=== PATIENT | male | born 1955 | race Caucasian/White ===

== ENCOUNTER → 2016-11-25 | Outpatient (CLI) | payer MEDICARE, MEDICAID | LOC: RAD 11:01 | PROVIDERS: ATTEND Preventive Medicine Undersea and Hyperbaric Medicine | DX: E11.621 Type 2 diabetes mellitus with foot ulcer (principal) ==

== ENCOUNTER 2019-03-31 17:49 | Inpatient (IN) | payer MEDICARE, MEDICAID ==
--- NOTE | 2019-03-31 18:31 | ER Document Report ---
ED Medical Screen (RME) - General Chief Complaint: Wound Infection Stated Complaint: RIGHT FOOT PAIN Time Seen by Provider: 03/31/19 18:17 Primary Care Provider: ADELINE ZAMORANO PA [Primary Care Provider] - Follow up as needed Notes: Patient is a 63-year-old male who presents the emergency department with a chief complaint of right foot pain. He has had his symptoms for the past month. He has been draining fluid. Patient has a history of osteomyelitis, gangrene, diabetes, hypertension, and multiple foot surgeries in the past. Exam: Foul-smelling right foot. Unfortunately the patient's dressing was unable to be removed. It needs to be soaked in water before it is removed. I have greeted and performed a rapid initial assessment of this patient. A comprehensive ED assessment and evaluation of the patient, analysis of test results and completion of medical decision making process will be conducted by an additional ED providers. TRAVEL OUTSIDE OF THE [place] IN LAST 30 DAYS: No - Related Data Allergies/Adverse Reactions: No Known Allergies Allergy (Verified 03/31/19 17:50) Past Medical History - Past Medical History Cardiac Medical History: Reports: Hx Hypercholesterolemia, Hx Hypertension - medicated Denies: Hx Heart Attack Pulmonary Medical History: Denies: Hx Asthma, Hx Tuberculosis Neurological Medical History: Denies: Hx Cerebrovascular Accident, Hx Seizures Endocrine Medical History: Reports: Hx Diabetes Mellitus Type 1, Hx Diabetes Mellitus Type 2 GI Medical History: Reports: Hx Gastroesophageal Reflux Disease. Denies: Hx Hepatitis, Hx Hiatal Hernia, Hx Ulcer Musculoskeltal Medical History: Infectious Medical History: Denies: Hx Hepatitis Past Surgical History: Reports: Hx Cholecystectomy, Hx Orthopedic Surgery - partial amputation on right foot 01/2012, partial amp to left foot. Denies: Hx Open Heart Surgery, Hx Pacemaker - Immunizations Hx Diphtheria, Pertussis, Tetanus Vaccination: Yes Physical Exam - Vital signs Vitals: Temp Pulse BP Pulse Ox 98.4 F 82 155/71 H 97 03/31/19 17:56 03/31/19 17:56 03/31/19 17:56 03/31/19 17:56 Course - Vital Signs Vital signs: Temp Pulse Resp BP Pulse Ox 98.4 F 82 155/71 H 97 03/31/19 17:56 03/31/19 17:56 03/31/19 17:56 03/31/19 17:56 Doctor's Discharge - Discharge Referrals: ADELINE ZAMORANO PA [Primary Care Provider] - Follow up as needed
[2019-03-31 18:55] LABS: HEMATOCRIT 26.7 % (37.9-51.0); HEMOGLOBIN 8.8 g/dL (13.5-17.0); MEAN CORPUSCULAR HEMOGLOBIN 25.5 pg (27.0-33.4); MEAN CORPUSCULAR HGB CONC 33.1 g/dL (32.0-36.0); MEAN CORPUSCULAR VOLUME 77 fl (80-97); PLATELET COUNT 687 10^3/uL (150-450); RED BLOOD COUNT 3.46 10^6/uL (4.35-5.55); RED CELL DISTRIBUTION WIDTH 15.2 % (11.5-14.0); WHITE BLOOD COUNT 27.2 10^3/uL (4.0-10.5)
--- NOTE | 2019-03-31 19:02 | RADIOLOGY REPORT (SQ) ---
EXAM DESCRIPTION: TIBIA FIBULA RIGHT COMPLETED DATE/TIME: 03/31/2019 6:50 pm REASON FOR STUDY: wound infection COMPARISON: None. NUMBER OF VIEWS: Two views. TECHNIQUE: Two radiographic images acquired of the right tibia and fibula to include the knee and an kle in at least one projection. LIMITATIONS: None. FINDINGS: MINERALIZATION: Normal. BONES: No finding in the tib fib. Partially imaged midfoot reveals sclerotic changes in possible Mariah rcot changes. SOFT TISSUES: No obvious swelling or foreign body. OTHER: No other significant finding. IMPRESSION: NEGATIVE STUDY OF THE RIGHT TIBIA AND FIBULA. NO RADIOGRAPHIC EVIDENCE OF ACUTE INJURY. TECHNICAL DOCUMENTATION: JOB ID: [id number] [employer]- All Rights Reserved Reading location - IP/workstation name: [email or web address]
--- NOTE | 2019-03-31 19:03 | RADIOLOGY REPORT (SQ) ---
EXAM DESCRIPTION: FOOT RIGHT COMPLETE COMPLETED DATE/TIME: 03/31/2019 6:50 pm REASON FOR STUDY: wound infection COMPARISON: 10/23/2013 NUMBER OF VIEWS: Three views. TECHNIQUE: AP, lateral and oblique radiographic images acquired of the right foot. LIMITATIONS: None. FINDINGS: MINERALIZATION: Heterogeneous, mottled mineralization of the remaining forefoot. Hindfoot and distal lower leg mineralization appears normal. BONES: Status post forefoot amputation. The distal margins appear rarefied. A small plantar entheso phyte is present. Degenerative changes are seen of the talonavicular joint. JOINTS: No effusions. SOFT TISSUES: Soft tissue irregularity is at the surgical site. Subcutaneous gas may be present ; al ternatively, this may be on the basis of tissue folds. OTHER: No other significant finding. IMPRESSION: Status post forefoot amputation. Given heterogeneous mineralization and indistinct dist al margins of the tarsal bone remnants in the setting of adjacent soft tissue infection, findings are worrisome for osseous extension/osteomyelitis. TECHNICAL DOCUMENTATION: JOB ID: [id number] [employer]- All Rights Reserved Reading location - IP/workstation name: [email or web address]
[2019-03-31] MEDS ORDERED: ONDANSETRON HCL INJ/PF 4 MG/2 ML SDV IV ONE (19:06)
[2019-03-31] MEDS ORDERED: MORPHINE SULFATE 10 MG/ML INJ IV ONE (19:06)
[2019-03-31] MEDS ORDERED: PIPERACILLIN/TAZOBACTAM 3.375 GM VIAL IV ONE (19:06)
[2019-03-31] MEDS ORDERED: VANCOMYCIN HCL INJ 1000 MG VIAL IV ONE (19:06)
[2019-03-31] MEDS ORDERED: NORMAL SALINE 1000 ML 1,000 ML IV ONE (19:07)
--- NOTE | 2019-03-31 19:07 | ER Document Report ---
ED General - General Chief Complaint: Wound Infection Stated Complaint: RIGHT FOOT PAIN Time Seen by Provider: 03/31/19 18:17 Primary Care Provider: ADELINE ZAMORANO PA [NO LOCAL MD] - Follow up as needed Notes: Patient is a 63-year-old male with diabetes mellitus that presents to the emergency department for chief complaint of right foot pain from chronic wound. Patient states that he had a transmetatarsal amputation several years ago, at this hospital, he was doing wound care for some time, but has not followed up in about 2 years. He has been having worsening pain over the past few months, but specifically last 10 days his pain has become severe to the point he came to the hospital today. He currently rates his pain as a 10 out of 10 describes as a sharp stabbing pain, at the end of his stump of his right foot. He states that the pain is constant does not go away with any attempt to make it better with [id number] Tylenol or Motrin. He does change the dressings once a day himself, he has had a lot of drainage out of it, and he states that earlier today believes a piece of bone fell out of his deep wound. Past Medical History: Diabetes mellitus, hypertension Past Surgical History: Transmetatarsal amputation of the right foot Social History: Admits to smoking cigarettes, denies current alcohol or illicit drug use. Family History: Reviewed and noncontributory for presenting illness Allergies: Reviewed, see documented allergy list. REVIEW OF SYSTEMS: Other than noted above, the 12 point review of systems was reviewed with the patient and were negative, all pertinent findings are included in the HPI. PHYSICAL EXAMINATION: Vital signs reviewed, nursing noted reviewed. GENERAL: Patient appears uncomfortable, older than stated age. HEAD: Atraumatic, normocephalic. EYES: Eyes appear normal, extraocular movements intact, sclera anicteric, conjunctiva are normal. ENT: nares patent, oropharynx clear without exudates. Moist mucous membranes. NECK: Normal range of motion, supple without lymphadenopathy LUNGS: Breath sounds clear to auscultation bilaterally and equal. No wheezes rales or rhonchi. HEART: Regular rate and rhythm without murmurs ABDOMEN: Soft, nontender, normoactive bowel sounds. No rebound, guarding, or rigidity. No masses appreciated. EXTREMITIES: The right foot has prior transmetatarsal amputation, with complex wound over the distal stump, with a deep wound, where the second and third metatarsals were present, probes deep at least 2 cm, with noted granulation tissue and some drainage, with foul odor. There is no active bleeding at this time. Sensation decreased distally over the stump as well, sensation intact distally in the rest the extremities, and otherwise extremities exam is unremarkable. NEUROLOGICAL: Sensation decreased of the distal portion of the patient's right foot, otherwise no neurological deficits noted on exam, intact strength distally in other extremities. Sensation intact distally otherwise as well. Cranial nerves tested and intact. PSYCH: Appears anxious, and uncomfortable on exam. SKIN: Warm, Dry, normal turgor, wound as noted above of the right foot. TRAVEL OUTSIDE OF THE [place] IN LAST 30 DAYS: No - Related Data Allergies/Adverse Reactions: No Known Allergies Allergy (Verified 03/31/19 17:50) Past Medical History - Social History Smoking Status: Unknown if Ever Smoked Family History: Other Patient has suicidal ideation: No Patient has homicidal ideation: No - Past Medical History Cardiac Medical History: Reports: Hx Hypercholesterolemia, Hx Hypertension - medicated Denies: Hx Heart Attack Pulmonary Medical History: Denies: Hx Asthma, Hx Tuberculosis Neurological Medical History: Denies: Hx Cerebrovascular Accident, Hx Seizures Endocrine Medical History: Reports: Hx Diabetes Mellitus Type 1, Hx Diabetes Mellitus Type 2 Renal/ Medical History: Denies: Hx Peritoneal Dialysis GI Medical History: Reports: Hx Gastroesophageal Reflux Disease. Denies: Hx Hepatitis, Hx Hiatal Hernia, Hx Ulcer Musculoskeletal Medical History: Infectious Medical History: Denies: Hx Hepatitis Past Surgical History: Reports: Hx Cholecystectomy, Hx Orthopedic Surgery - partial amputation on right foot 01/2012, partial amp to left foot. Denies: Hx Open Heart Surgery, Hx Pacemaker - Immunizations Hx Diphtheria, Pertussis, Tetanus Vaccination: Yes Hx Pneumococcal Vaccination: 04/05/11 Physical Exam - Vital signs Vitals: Temp Pulse BP Pulse Ox 98.4 F 82 155/71 H 97 03/31/19 17:56 03/31/19 17:56 03/31/19 17:56 03/31/19 17:56 Course - Re-evaluation Re-evalutation: Patient seen and examined vital signs reviewed. Laboratory data and imaging were ordered as appropriate for the patient's presenting symptoms and complaint, with consideration of any critical or life threatening conditions that may be associated with their obtained history and exam as noted above. Patient was treated with IV antibiotics with vancomycin and Zosyn, and given IV fluids, and pain medication. Results were reviewed when available and demonstrated market leukocytosis, thrombocytosis, and x-rays concerning for osteomyelitis of the right foot near the site of the transmetatarsal amputation, and clinically it is consistent with that, is also noted to have a markedly elevated CRP, and ESR. The patient was re-evaluated and was stable Evaluation was most consistent with osteomyelitis of the right foot, with complex wound, I do feel the patient will likely need a below the knee amputation, call was placed to surgery, awaiting callback to discuss disposition, I did discuss the case with the hospitalist as well, they will defer to surgery at this point. Results were discussed with the patient at this point after careful consideration I feel that that patient should be admitted to the hospital. This was discussed with the patient that it is in the best interest for their care to be admitted for further evaluation and management. Patient agreed with this plan of care. A call was placed to the admitting physician, Dr. Bhatti who graciously accepted the patient onto their service, I did call initially to Dr. Mauro, with general surgery, as the patient is likely surgical candidate, and he wished to have the patient admitted to the medicine service due to his diabetes, this is when I did talk to Dr. Bhatti, who did agree to accept the patient onto his service at this point. *Note is created using voice recognition software and may contain spelling, syntax or grammatical errors. Laboratory 03/31/19 03/31/19 03/31/19 18:37 18:37 18:37 WBC 27.2 H RBC 3.46 L Hgb 8.8 L Hct 26.7 L MCV 77 L MCH 25.5 L MCHC 33.1 RDW 15.2 H Plt Count 687 H Total Counted 100 Seg Neutrophils % Not Reportable Seg Neuts % (Manual) 84 H Lymphocytes % Not Reportable Lymphocytes % (Manual) 12 L Monocytes % Not Reportable Monocytes % (Manual) 4 Eosinophils % Not Reportable Eosinophils % (Manual) 0 Basophils % Not Reportable Basophils % (Manual) 0 Absolute Neutrophils Not Reportable Abs Neuts (Manual) 22.8 H Absolute Lymphocytes Not Reportable Abs Lymphs (Manual) 3.3 Absolute Monocytes Not Reportable Abs Monocytes (Manual) 1.1 Absolute Eosinophils Not Reportable Absolute Eos (Manual) 0.0 Absolute Basophils Not Reportable Abs Basophils (Manual) 0.0 Clumped Platelets PRESENT Platelet Comment INCREASED Polychromasia SLIGHT Hypochromasia SLIGHT Anisocytosis SLIGHT Microcytosis SLIGHT ESR 94 H Sodium 128.7 L Potassium 5.2 H Chloride 88 L Carbon Dioxide 29 Anion Gap 12 BUN 18 Creatinine 0.83 Est GFR ( Amer) > 60 Est GFR (Non-Af Amer) > 60 Glucose 220 H Lactic Acid Calcium 9.5 Total Bilirubin 0.4 Direct Bilirubin 0.3 Neonat Total Bilirubin Not Reportable Neonat Direct Bilirubin Not Reportable Neonat Indirect Bili Not Reportable AST 53 ALT 53 Alkaline Phosphatase 121 C-Reactive Protein Total Protein 7.1 Albumin 3.2 L 03/31/19 03/31/19 18:37 19:30 WBC RBC Hgb Hct MCV MCH MCHC RDW Plt Count Total Counted Seg Neutrophils % Seg Neuts % (Manual) Lymphocytes % Lymphocytes % (Manual) Monocytes % Monocytes % (Manual) Eosinophils % Eosinophils % (Manual) Basophils % Basophils % (Manual) Absolute Neutrophils Abs Neuts (Manual) Absolute Lymphocytes Abs Lymphs (Manual) Absolute Monocytes Abs Monocytes (Manual) Absolute Eosinophils Absolute Eos (Manual) Absolute Basophils Abs Basophils (Manual) Clumped Platelets Platelet Comment Polychromasia Hypochromasia Anisocytosis Microcytosis ESR Sodium Potassium Chloride Carbon Dioxide Anion Gap BUN Creatinine Est GFR ( Amer) Est GFR (Non-Af Amer) Glucose Lactic Acid 0.9 Calcium Total Bilirubin Direct Bilirubin Neonat Total Bilirubin Neonat Direct Bilirubin Neonat Indirect Bili AST ALT Alkaline Phosphatase C-Reactive Protein 188.7 H Total Protein Albumin Foot X-Ray 03/31/19 18:25 IMPRESSION: Status post forefoot amputation. Given heterogeneous mineralization and indistinct distal margins of the tarsal bone remnants in the setting of adjacent soft tissue infection, findings are worrisome for osseous extension/osteomyelitis. Tibia/Fibula X-Ray 03/31/19 18:25 IMPRESSION: NEGATIVE STUDY OF THE RIGHT TIBIA AND FIBULA. NO RADIOGRAPHIC EVIDENCE OF ACUTE INJURY. - Vital Signs Vital signs: Temp Pulse Resp BP Pulse Ox 98.4 F 82 24 H 137/81 H 95 03/31/19 17:56 03/31/19 17:56 03/31/19 21:01 03/31/19 21:00 03/31/19 21:01 - Laboratory Result Diagrams: 03/31/19 18:37 03/31/19 18:37 Laboratory results interpreted by me: 03/31/19 03/31/19 03/31/19 18:37 18:37 18:37 WBC 27.2 H RBC 3.46 L Hgb 8.8 L Hct 26.7 L MCV 77 L MCH 25.5 L RDW 15.2 H Plt Count 687 H Seg Neuts % (Manual) 84 H Lymphocytes % (Manual) 12 L Abs Neuts (Manual) 22.8 H ESR 94 H Sodium 128.7 L Potassium 5.2 H Chloride 88 L Glucose 220 H C-Reactive Protein Albumin 3.2 L 03/31/19 18:37 WBC RBC Hgb Hct MCV MCH RDW Plt Count Seg Neuts % (Manual) Lymphocytes % (Manual) Abs Neuts (Manual) ESR Sodium Potassium Chloride Glucose C-Reactive Protein 188.7 H Albumin Discharge - Discharge Clinical Impression: Thrombocytosis, Hyponatremia Osteomyelitis Qualifiers: Osteomyelitis type: other acute Osteomyelitis location: foot Laterality: right Qualified Code(s): M86.171 - Other acute osteomyelitis, right ankle and foot Leukocytosis Qualifiers: Leukocytosis type: unspecified Qualified Code(s): D72.829 - Elevated white blood cell count, unspecified Condition: Stable Disposition: ADMITTED INPATIENT Admitting Provider: Magy (Hospitalist) Unit Admitted: Surgical Floor Referrals: ADELINE ZAMORANO PA [NO LOCAL MD] - Follow up as needed
[2019-03-31 19:10] LABS: ABSOLUTE LYMPHOCYTES# (MANUAL) 3.3 10^3/uL (0.5-4.7); ABSOLUTE MONOCYTES # (MANUAL) 1.1 10^3/uL (0.1-1.4); ALANINE AMINOTRANSFERASE 53 U/L (21-72); ALBUMIN 3.2 g/dL (3.5-5.0); ALKALINE PHOSPHATASE 121 U/L (38-126); ANION GAP 12 (5-19); ASPARTATE AMINO TRANSFERASE 53 U/L (17-59); BASOPHILS % (MANUAL) 0 % (0-2); BILIRUBIN,DIRECT 0.3 mg/dL (0.0-0.4); BILIRUBIN,TOTAL 0.4 mg/dL (0.2-1.3); BLOOD UREA NITROGEN 18 mg/dL (7-20); CALCIUM 9.5 mg/dL (8.4-10.2); CARBON DIOXIDE 29 mmol/L (22-30); CHLORIDE 88 mmol/L (98-107); EOSINOPHILS % (MANUAL) 0 % (0-6); GLUCOSE 220 mg/dL (75-110); LYMPHOCYTES % (MANUAL) 12 % (13-45); MONOCYTES % (MANUAL) 4 % (3-13); POTASSIUM 5.2 mmol/L (3.6-5.0); SEGMENTED NEUTROPHILS % (MAN) 84 % (42-78); TOTAL CELLS COUNTED 100; TOTAL PROTEIN 7.1 g/dL (6.3-8.2)
[2019-03-31 19:11] LABS: ANISOCYTOSIS SLIGHT; HYPOCHROMASIA SLIGHT; PLATELET CLUMPS PRESENT; PLATELET COMMENT INCREASED; POLYCHROMASIA SLIGHT
[2019-03-31] MEDS ORDERED: HYDROMORPHONE HCL INJ/PF 2 MG/ML AMPULE IV ONE (21:35)
[2019-03-31] MEDS ORDERED: MAG HYDROX/AL HYDROX/SIMETH SUSP 30 ML UDCUP PO PRN (23:14)
[2019-03-31] MEDS ORDERED: NORMAL SALINE 1000 ML 1,000 ML IV PRN (23:14)
[2019-03-31] MEDS ORDERED: LEVALBUTEROL HCL NEB 0.63 MG/3 ML AMPUL NEB PRN (23:14)
[2019-03-31] MEDS ORDERED: ONDANSETRON HCL INJ/PF 4 MG/2 ML SDV IV PRN (23:14)
[2019-03-31] MEDS ORDERED: MAGNESIUM HYDROXIDE SUSP 30 ML UDCUP PO PRN (23:14)
[2019-03-31] MEDS ORDERED: MORPHINE SULFATE 10 MG/ML INJ IV PRN ×4 (23:20→23:32)
[2019-03-31] MEDS ORDERED: NICOTINE 21 MG/24 HR PATCH.TD24 TD PRN (23:20)
[2019-03-31] MEDS ORDERED: METOPROLOL TARTRATE PF/INJ 5 MG/5 ML SDV IV PRN (23:20)
[2019-03-31] MEDS ORDERED: ACETAMINOPHEN 325 MG TABLET PO PRN (23:20)
[2019-03-31] MEDS ORDERED: DEXTROSE 50%-WATER 25 GM/50 ML DISP.SYRIN IV PRN ×2 (23:21)
[2019-03-31] MEDS ORDERED: GLUCAGON,HUMAN RECOMB 1 MG INJ IM PRN (23:21)
[2019-03-31] MEDS ORDERED: DEXTROSE 40% GEL 15 GM TUBE PO PRN ×2 (23:21)
[2019-03-31 23:50] LABS: FREE T3 2.64 pg/mL (2.77-5.27)
[2019-03-31 23:51] LABS: FREE T4 (FREE THYROXINE) 1.57 ng/dL (0.78-2.19)
[2019-04-01 00:05] LABS: THYROID STIMULATING HORMONE 2.33 uIU/mL (0.47-4.68)
[2019-04-01] MEDS: FAMOTIDINE 20 MG TABLET PO SCH ×3 (00:46→23:03)
--- NOTE | 2019-04-01 00:46 | ADVANCED CARE ---
- Diagnosis (1) Osteomyelitis of foot, right, acute Diagnosis Current: Yes (2) Diabetes mellitus type 2 in nonobese Diagnosis Current: Yes (3) Essential hypertension Diagnosis Current: Yes (4) Tobacco use disorder, severe, dependence Diagnosis Current: Yes Attendance: Patient and myself. Resuscitation Status: Full Code Discussion: After brief discussion patient has determined he wishes to remain full code resuscitation status throughout this hospital course. Additionally he is named his son Chucky Elliott as his designated surrogate medical decision-maker. Care Planning Goals: 1. Patient will be full CODE STATUS for this hospital admission. 2. Chucky Elliott will be the patient's designated surrogate medical decision-maker. Document(s) Completed: The following entries will be made to the patient's permanent medical record, current medical record and current orders via EMR entry: 1. Patient will be full CODE STATUS for this hospital admission. 2. Chucky Elliott will be the patient's designated surrogate medical decision-maker. Time Spent: 5 minutes
--- NOTE | 2019-04-01 00:46 | PDOC H&P ---
History of Present Illness Admission Date/PCP: 03/31/19 21:37 ALHAJI VILLALBA MD Patient complains of: Right foot pain History of Present Illness: CHUCKY ELLIOTT is a 63 year old male who presents the emergency room with a 10-day history of right foot pain. 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 He has not been compliant with receiving care at the wound clinic and recently has been "taking care of his foot by himself at home". He admits that over the last several months he is been having gradually worsening pain but approximately 10 days ago he developed severe pain in his right foot. He describes the pain as a constant, severe, sharp stabbing in the end of the transmetatarsal stump of his right foot. The pain is worsened by weightbearing, does not radiate and has not responded to ibuprofen or acetaminophen. He further relates that a piece of bone fell out of his foot wound earlier today. He admits prior similar problems with his left foot that resulted in an amputation of his left great toe. He has not identified any other aggravating or ameliorating factors for his right foot pain. In the emergency room he was found to have a leukocytosis, radiographic changes consistent with osteomyelitis of the right foot and obvious gangrene of the right foot on visual inspection. Dr. Mauro was notified about the patient and insisted that the hospital service should admit this patient because he has diabetes, hypertension and some mild electrolyte abnormalities. Patient was subsequently admitted to the hospital for further evaluation and treatment. Past Medical History Cardiac Medical History: Reports: Hyperlipidema, Hypertension - medicated Denies: Coronary Artery Disease, Myocardial Infarction Pulmonary Medical History: Denies: Asthma, Chronic Obstructive Pulmonary Disease (COPD), Tuberculosis EENT Medical History: Denies: Cataracts, Ears - Hearing aids Neurological Medical History: Denies: Hemorrhagic CVA, Ischemic CVA, Multiple Sclerosis, Seizures Endocrine Medical History: Reports: Diabetes Mellitus Type 2 Denies: Diabetes Mellitus Type 1, Hyperthyroidism, Hypothyroidism, Obesity Renal/ Medical History: Denies: Chronic Kidney Disease, Nephrolithiasis Malignancy Medical History: Reports: None GI Medical History: Reports: Gastroesophageal Reflux Disease Denies: Cirrhosis, Crohn's Disease, Hepatitis, Hiatal Hernia, Ulcerative Colitis Musculoskeltal Medical History: Reports: Other - Diabetic foot/toe ulcers Denies: Arthritis, Fibromyalgia, Gout Skin Medical History: Denies: Eczema, Psoriasis Psychiatric Medical History: Reports: Substance Abuse, Tobacco Dependency Denies: Alcohol Dependency Traumatic Medical History: Reports: None Hematology: Denies: Anemia, Bleeding Tendencies Infectious Medical History: Reports: None Past Surgical History Past Surgical History: Reports: Cholecystectomy, Orthopedic Surgery - Right transmetatarsal amputation, left great toe amputation Social History Information Source: Patient Lives with: Alone Smoking Status: Current Every Day Smoker Frequency of Alcohol Use: None Hx Recreational Drug Use: Yes Drugs: Marijuana Hx Prescription Drug Abuse: No - Advance Directive Resuscitation Status: Full Code Surrogate healthcare decision maker:: Chucky Elliott Family History Family History: DM, Hypertension Parental Family History Reviewed: Yes Children Family History Reviewed: No Sibling(s) Family History Reviewed.: Yes Medication/Allergy Home Medications: Metoclopramide HCl [Reglan] 5 mg PO Q8HP PRN #14 tablet 04/06/13 Oxycodone HCl/Acetaminophen [Percocet 5-325 mg Tablet] 1 - 2 tab PO ASDIR PRN #25 tablet 04/06/13 Ondansetron [Zofran Odt 4 mg Tablet] 1 - 2 tab PO Q4H #20 tab.rapdis 04/08/13 Omeprazole [Prilosec] 20 mg PO DAILY #30 capsule. 09/12/13 Amlodipine Besylate [Norvasc] 5 mg PO DAILY 01/08/14 Polyethylene Glycol 3350 [Miralax] 119 gm PO PRN PRN 01/08/14 Insulin Aspart Prot/Insuln Asp [Novolog Mix 70-30 Flexpen Syrn] 5 unit SQ ACHS 05/01/14 Lisinopril 40 mg PO DAILY 05/01/14 Sennosides/Docusate 8.6-50 mg [Senna Plus Tablet] 2 tab PO BIDP PRN 05/01/14 Allergies/Adverse Reactions: No Known Allergies Allergy (Verified 03/31/19 17:50) Review of Systems Constitutional: ABSENT: chills, fever(s) Eyes: ABSENT: visual disturbances, other - Eye Pain Ears: ABSENT: hearing changes, other - Ear Pain Nose, Mouth, and Throat: ABSENT: mouth pain, sore throat Cardiovascular: ABSENT: chest pain, palpitations Respiratory: ABSENT: cough, dyspnea Gastrointestinal: ABSENT: abdominal pain, constipation, diarrhea, nausea, vomiting Genitourinary: ABSENT: dysuria, hematuria Musculoskeletal: PRESENT: as per HPI, other - Right foot pain and soreness. ABSENT: back pain, muscle weakness Integumentary: PRESENT: wounds - Chronic postoperative wound right foot (diabeti c ulcer). ABSENT: pruritus, rash Neurological: ABSENT: confusion, convulsions, focal weakness, memory loss, syncope Psychiatric: ABSENT: anxiety, depression Endocrine: ABSENT: cold intolerance, heat intolerance Hematologic/Lymphatic: ABSENT: easy bleeding, easy bruising Physical Exam Vital Signs: Temp Pulse Resp BP Pulse Ox 98.6 F 82 22 H 125/71 97 03/31/19 22:31 03/31/19 17:56 03/31/19 22:01 03/31/19 22:00 03/31/19 22:01 Intake & Output 03/29/19 03/30/19 03/31/19 23:59 23:59 23:59 Intake Total 1000 Balance 1000 Weight 73.3 kg General appearance: PRESENT: no acute distress, cooperative Head exam: PRESENT: atraumatic, normocephalic Eye exam: PRESENT: conjunctiva pink. ABSENT: conjunctival injection, scleral icterus Ear exam: PRESENT: normal external ear exam. ABSENT: bleeding, drainage Mouth exam: PRESENT: dry mucosa, neck supple Neck exam: ABSENT: JVD, thyromegaly, tracheal deviation Respiratory exam: PRESENT: clear to auscultation melonie, symmetrical, unlabored Cardiovascular exam: PRESENT: RRR. ABSENT: clicks, gallop, rubs Pulses: PRESENT: normal radial pulses. ABSENT: normal dorsalis pedis pul - Dorsalis pedis pulses diminished bilaterally Vascular exam: PRESENT: normal capillary refill. ABSENT: pallor GI/Abdominal exam: PRESENT: normal bowel sounds, soft Rectal exam: PRESENT: deferred Extremities exam: PRESENT: tenderness - Right foot. ABSENT: joint swelling Musculoskeletal exam: PRESENT: tenderness - Right foot, other - Status post: Amputation left great toe, amputation transmetatarsal on right. ABSENT: deformity, dislocation Neurological exam: PRESENT: alert, oriented to person, oriented to place, oriented to time, oriented to situation, CN II-XII grossly intact. ABSENT: motor sensory deficit Psychiatric exam: PRESENT: appropriate affect, normal mood Skin exam: PRESENT: dry, warm, other - Right foot with obvious erythema edema and gangrenous changes present over the entirety of the distal forefoot status post transmetatarsal amputation.. ABSENT: jaundice, rash, urticaria Results Laboratory Results: 03/31/19 18:37 03/31/19 18:37 03/31/19 03/31/19 03/31/19 18:37 18:37 18:37 WBC 27.2 H RBC 3.46 L Hgb 8.8 L Hct 26.7 L MCV 77 L MCH 25.5 L MCHC 33.1 RDW 15.2 H Plt Count 687 H Seg Neutrophils % Not Reportable Lymphocytes % Not Reportable Monocytes % Not Reportable Eosinophils % Not Reportable Basophils % Not Reportable Absolute Neutrophils Not Reportable Absolute Lymphocytes Not Reportable Absolute Monocytes Not Reportable Absolute Eosinophils Not Reportable Absolute Basophils Not Reportable Sodium 128.7 L Potassium 5.2 H Chloride 88 L Carbon Dioxide 29 Anion Gap 12 BUN 18 Creatinine 0.83 Est GFR ( Amer) > 60 Est GFR (Non-Af Amer) > 60 Glucose 220 H Lactic Acid Calcium 9.5 Total Bilirubin 0.4 AST 53 ALT 53 Alkaline Phosphatase 121 C-Reactive Protein 188.7 H Total Protein 7.1 Albumin 3.2 L 03/31/19 19:30 WBC RBC Hgb Hct MCV MCH MCHC RDW Plt Count Seg Neutrophils % Lymphocytes % Monocytes % Eosinophils % Basophils % Absolute Neutrophils Absolute Lymphocytes Absolute Monocytes Absolute Eosinophils Absolute Basophils Sodium Potassium Chloride Carbon Dioxide Anion Gap BUN Creatinine Est GFR ( Amer) Est GFR (Non-Af Amer) Glucose Lactic Acid 0.9 Calcium Total Bilirubin AST ALT Alkaline Phosphatase C-Reactive Protein Total Protein Albumin Impressions: Foot X-Ray 03/31/19 18:25 IMPRESSION: Status post forefoot amputation. Given heterogeneous mineralization and indistinct distal margins of the tarsal bone remnants in the setting of adjacent soft tissue infection, findings are worrisome for osseous extension/osteomyelitis. Tibia/Fibula X-Ray 03/31/19 18:25 IMPRESSION: NEGATIVE STUDY OF THE RIGHT TIBIA AND FIBULA. NO RADIOGRAPHIC EVIDENCE OF ACUTE INJURY. Assessment and Plan - Diagnosis (1) Osteomyelitis of foot, right, acute Is this a current diagnosis for this admission?: Yes Plan: Patient's osteomyelitis will be treated with IV antibiotics utilizing Zosyn and vancomycin. A surgical consultation will be obtained with Dr. Mauro. Daily CBCs, metabolic profiles and magnesium levels will be obtained. Patient's pain will be treated with morphine sulfate 2 to 4 mg IV every 2 hours on a as needed basis via sliding scale. (2) Diabetes mellitus type 2 in nonobese Is this a current diagnosis for this admission?: Yes Plan: Patient will be continued on his usual diabetic regiment and diabetic diet. Hemoglobin A1c will be obtained to evaluate his current therapy. A sliding scale insulin regiment will be in place for use with before meals and at bedtime Accu-Cheks. A hypoglycemic protocol will also be in place. (3) Essential hypertension Is this a current diagnosis for this admission?: Yes Plan: Patient will be continued on his usual medications for hypertension and his bloo d pressure will be observed closely throughout his hospital stay. (4) Tobacco use disorder, severe, dependence Is this a current diagnosis for this admission?: Yes Plan: Smoking cessation has been advised and discussed briefly at the bedside. A nicotine replacement patch is available for the patient's use as desired. - Time Time Spent with patient: 25-34 minutes Smoking Cessation Education: 3 to 10 minutes Medications reviewed and adjusted accordingly: Yes Anticipated discharge: Home - Inpatient Certification Based on my medical assessment, after consideration of the patient's jr rbidities, presenting symptoms, or acuity I expect that the services needed warrant INPATIENT care.: Yes I certify that my determination is in accordance with my understanding of Medicare's requirements for reasonable and necessary INPATIENT services [42 CFR 412.3e].: Yes Medical Necessity: Significant Comorbidiites Make Outpatient Treatment Too Risky, Need Close Monitoring Due to Risk of Patient Decompensation, Need for Pain Control, Need for IV Antibiotics, Need for Surgery, Risk of Complication if Not Cared For in Hospital
[2019-04-01] MEDS ORDERED: MORPHINE SULFATE 10 MG/ML INJ IV PRN ×3 (00:52→00:53)
[2019-04-01] MEDS ORDERED: PIPERACILLIN/TAZOBACTAM 3.375 GM VIAL IV PRN (01:00)
[2019-04-01] MEDS ORDERED: FAMOTIDINE 20 MG TABLET PO ONE (01:00)
[2019-04-01] MEDS ORDERED: VANCOMYCIN HCL INJ 1000 MG VIAL IV PRN (01:10)
[2019-04-01] MEDS: MORPHINE SULFATE 10 MG/ML INJ IV PRN ×7 (02:38→21:00)
[2019-04-01] MEDS ORDERED: PIPERACILLIN/TAZOBACTAM 3.375 GM VIAL IV ONE (03:50)
[2019-04-01 04:58] LABS: HEMATOCRIT 25.3 % (37.9-51.0); HEMOGLOBIN 8.3 g/dL (13.5-17.0); MEAN CORPUSCULAR HEMOGLOBIN 25.6 pg (27.0-33.4); MEAN CORPUSCULAR HGB CONC 32.9 g/dL (32.0-36.0); MEAN CORPUSCULAR VOLUME 78 fl (80-97); PLATELET COUNT 555 10^3/uL (150-450); RED BLOOD COUNT 3.25 10^6/uL (4.35-5.55); RED CELL DISTRIBUTION WIDTH 14.7 % (11.5-14.0)
[2019-04-01 05:22] LABS: ANION GAP 7 (5-19); BLOOD UREA NITROGEN 15 mg/dL (7-20); CALCIUM 8.6 mg/dL (8.4-10.2); CARBON DIOXIDE 29 mmol/L (22-30); CHLORIDE 95 mmol/L (98-107); CHOLESTEROL 90.96 mg/dL (0-200); GLUCOSE 205 mg/dL (75-110); POTASSIUM 4.8 mmol/L (3.6-5.0); TRIGLYCERIDES 84 mg/dL (<150)
[2019-04-01 05:33] LABS: DIRECT LDL 60 mg/dL (<100)
[2019-04-01] MEDS: PIPERACILLIN SODIUM/TAZOBACTAM 3.375 GM in NORMAL SALINE 100 ML IV SCH ×4 (05:43→21:00)
[2019-04-01] MEDS ORDERED: HEPARIN SOD (PORCINE) 5,000 UNIT/ML 1 ML VIAL SUBCUT SCH (06:00)
[2019-04-01] MEDS ORDERED: VANCOMYCIN HCL 1,250 MG in DEXTROSE 5%-WATER 250 ML IV ONE (08:00)
[2019-04-01] MEDS ORDERED: INSULIN REG, HUMAN 100 UNIT/ML 3 ML VIAL (PYX) SUBCUT SCH (08:00)
--- NOTE | 2019-04-01 08:21 | PDOC PROGRESS REPORT ---
Subjective Progress Note for:: 04/01/19 Subjective:: 63 year old male who presents the emergency room with a 10-day history of right foot pain. 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 He has not been compliant with receiving care at the wound clinic and recently has been "taking care of his foot by himself at home". He admits that over the last several months he is been having gradually worsening pain but approximately 10 days ago he developed severe pain in his right foot. He describes the pain as a constant, severe, sharp stabbing in the end of the transmetatarsal stump of his right foot. The pain is worsened by weightbearing, does not radiate and has not responded to ibuprofen or acetaminophen. He further relates that a piece of bone fell out of his foot wound earlier today. He admits prior similar problems with his left foot that resulted in an amputation of his left great toe. He has not identified any other aggravating or ameliorating factors for his right foot pain. In the emergency room he was found to have a leukocytosis, radiographic changes consistent with osteomyelitis of the right foot and obvious gangrene of the right foot on visual inspection. Dr. Mauro was notified about the patient and insisted that the hospital service should admit this patient because he has diabetes, hypertension and some mild electrolyte abnormalities. Patient was subsequently admitted to the hospital for further evaluation and treatment. [id number]-old male came in with right foot osteomyelitis. It is foul- smelling. Patient has history of partial amputation of the right foot before. He is not following with the wound care center after that. X-rays done in the emergency room found to be consistent with osteomyelitis possible gangrene. Dr. Mauro was notified yesterday and Dr. Aldana admit the patient and to consult surgeon in the morning. I spoke to Dr. Hernandez this morning he was here just a minute ago to examine the patient. Patient is going to be n.p.o. in the meantime. Patient is complaining of severe pains he is on morphine [id number]. Blood cultures are pending. Presently on IV vancomycin and Zosyn. Reason For Visit: OSTEOMYELITIS RIGHT FOOT Physical Exam Vital Signs: Temp Pulse Resp BP Pulse Ox 99.0 F 68 16 137/74 H 92 04/01/19 07:49 04/01/19 07:49 04/01/19 07:49 04/01/19 07:49 04/01/19 07:49 Intake & Output 03/31/19 04/01/19 04/02/19 06:59 06:59 06:59 Intake Total 1000 Balance 1000 Weight 74.888 kg General appearance: PRESENT: cooperative, other - Patient is in severe distress. Head exam: PRESENT: atraumatic Eye exam: PRESENT: PERRLA Ear exam: PRESENT: normal external ear exam Mouth exam: PRESENT: moist, tongue midline Teeth exam: PRESENT: poor dentation Neck exam: ABSENT: carotid bruit, JVD, lymphadenopathy, thyromegaly Respiratory exam: PRESENT: decreased breath sounds Cardiovascular exam: PRESENT: RRR. ABSENT: diastolic murmur, rubs, systolic murmur GI/Abdominal exam: PRESENT: normal bowel sounds, soft. ABSENT: distended, guarding, mass, organolmegaly, rebound, tenderness Rectal exam: PRESENT: deferred Extremities exam: PRESENT: other - Right foot wrapped in bandage gauze extremely foul-smelling odor coming from it. Neurological exam: PRESENT: alert, awake, oriented to person, oriented to place, oriented to time, oriented to situation, CN II-XII grossly intact. ABSENT: judie r sensory deficit Psychiatric exam: PRESENT: appropriate affect, normal mood. ABSENT: homicidal ideation, suicidal ideation Results Laboratory Results: 04/01/19 04:49 04/01/19 04:49 03/31/19 03/31/19 03/31/19 18:37 18:37 18:37 WBC 27.2 H RBC 3.46 L Hgb 8.8 L Hct 26.7 L MCV 77 L MCH 25.5 L MCHC 33.1 RDW 15.2 H Plt Count 687 H Seg Neutrophils % Not Reportable Lymphocytes % Not Reportable Monocytes % Not Reportable Eosinophils % Not Reportable Basophils % Not Reportable Absolute Neutrophils Not Reportable Absolute Lymphocytes Not Reportable Absolute Monocytes Not Reportable Absolute Eosinophils Not Reportable Absolute Basophils Not Reportable Sodium 128.7 L Potassium 5.2 H Chloride 88 L Carbon Dioxide 29 Anion Gap 12 BUN 18 Creatinine 0.83 Est GFR ( Amer) > 60 Est GFR (Non-Af Amer) > 60 Glucose 220 H Lactic Acid Calcium 9.5 Magnesium Total Bilirubin 0.4 AST 53 ALT 53 Alkaline Phosphatase 121 C-Reactive Protein 188.7 H Total Protein 7.1 Albumin 3.2 L Triglycerides Cholesterol LDL Cholesterol Direct VLDL Cholesterol HDL Cholesterol TSH Free T4 Free T3 pg/mL 03/31/19 03/31/19 04/01/19 18:37 19:30 01:01 WBC RBC Hgb Hct MCV MCH MCHC RDW Plt Count Seg Neutrophils % Lymphocytes % Monocytes % Eosinophils % Basophils % Absolute Neutrophils Absolute Lymphocytes Absolute Monocytes Absolute Eosinophils Absolute Basophils Sodium Potassium Chloride Carbon Dioxide Anion Gap BUN Creatinine Est GFR ( Amer) Est GFR (Non-Af Amer) Glucose Lactic Acid 0.9 0.8 Calcium Magnesium Total Bilirubin AST ALT Alkaline Phosphatase C-Reactive Protein Total Protein Albumin Triglycerides Cholesterol LDL Cholesterol Direct VLDL Cholesterol HDL Cholesterol TSH 2.33 Free T4 1.57 Free T3 pg/mL 2.64 L 04/01/19 04/01/19 04/01/19 04:49 04:49 04:49 WBC 20.0 H RBC 3.25 L Hgb 8.3 L Hct 25.3 L MCV 78 L MCH 25.6 L MCHC 32.9 RDW 14.7 H Plt Count 555 H Seg Neutrophils % Lymphocytes % Monocytes % Eosinophils % Basophils % Absolute Neutrophils Absolute Lymphocytes Absolute Monocytes Absolute Eosinophils Absolute Basophils Sodium 131.4 L Potassium 4.8 Chloride 95 L Carbon Dioxide 29 Anion Gap 7 BUN 15 Creatinine 0.85 Est GFR ( Amer) > 60 Est GFR (Non-Af Amer) > 60 Glucose 205 H Lactic Acid 0.8 Calcium 8.6 Magnesium 1.8 Total Bilirubin AST ALT Alkaline Phosphatase C-Reactive Protein Total Protein Albumin Triglycerides 84 Cholesterol 90.96 LDL Cholesterol Direct 60 VLDL Cholesterol 17.0 HDL Cholesterol 19 L TSH Free T4 Free T3 pg/mL Impressions: Foot X-Ray 03/31/19 18:25 IMPRESSION: Status post forefoot amputation. Given heterogeneous mine ralization and indistinct distal margins of the tarsal bone remnants in the setting of adjacent soft tissue infection, findings are worrisome for osseous extension/osteomyelitis. Tibia/Fibula X-Ray 03/31/19 18:25 IMPRESSION: NEGATIVE STUDY OF THE RIGHT TIBIA AND FIBULA. NO RADIOGRAPHIC EVIDENCE OF ACUTE INJURY. Assessment and Plan - Diagnosis (1) Osteomyelitis of foot, right, acute Is this a current diagnosis for this admission?: Yes Plan: Patient's osteomyelitis will be treated with IV antibiotics utilizing Zosyn and vancomycin. A surgical consultation will be obtained with Dr. Mauro. Daily CBCs, metabolic profiles and magnesium levels will be obtained. Patient's pain will be treated with morphine sulfate 2 to 4 mg IV every 2 hours on a as needed basis via sliding scale. 04/01/2019-patient admitted with possible osteomyelitis x-ray suggestive of highly likely possibility of osteo-he was started on vancomycin and Zosyn MRI of the right foot was requested. He is receiving IV morphine [id number]. WBC count came down from 27,000-20,000 today hemoglobin is 8.8 and platelet count is 555 looks like reactive thrombocytosis. dr booth is here to examine the patient. Probably patient go for surgery tomorrow. (2) Essential hypertension Is this a current diagnosis for this admission?: Yes Plan: Patient will be continued on his usual medications for hypertension and his blood pressure will be observed closely throughout his hospital stay. 04/01/2019-patient blood pressure today is 124/67 stable. Plan is to continue the IV fluids at this point. (3) Hyponatremia Is this a current diagnosis for this admission?: Yes Plan: 04/01/2019-patient serum sodium is 131.4 hyponatremia most likely secondary to poor oral intake. (4) Diabetes mellitus type 2 in nonobese Is this a current diagnosis for this admission?: Yes Plan: Patient will be continued on his usual diabetic regiment and diabetic diet. Hemoglobin A1c will be obtained to evaluate his current therapy. A sliding scale insulin regiment will be in place for use with before meals and at bedtime Accu-Cheks. A hypoglycemic protocol will also be in place. 04/01/2019-latest blood sugar is 205 and hemoglobin A1c is 7.8 he is going to be n.p.o. to check blood sugars every 6 hours. (5) Tobacco use disorder, severe, dependence Is this a current diagnosis for this admission?: Yes Plan: Smoking cessation has been advised and discussed briefly at the bedside. A nicotine replacement patch is available for the patient's use as desired. 03/31/2019-patient history of chronic smoking current day smoker. Smoking counseling was provided for more than 10 minutes placed on nicotine patch. (6) Thrombocytosis Is this a current diagnosis for this admission?: Yes Plan: 04/01/2019-placed since platelet count is 555 indicating chronic inflammation involving the right foot with osteomyelitis and gangrene. (7) Leukocytosis Qualifiers: Leukocytosis type: unspecified Qualified Code(s): D72.829 - Elevated white blood cell count, unspecified Is this a current diagnosis for this admission?: Yes Plan: 04/01/2019-patient came in with WBC count of 27,000 improved to 20,000 today most likely secondary to osteomyelitis. (8) Osteomyelitis Qualifiers: Osteomyelitis type: other acute Osteomyelitis location: foot Laterality: right Qualified Code(s): M86.171 - Other acute osteomyelitis, right ankle and foot Is this a current diagnosis for this admission?: Yes - Time Time Spent with patient: 25-34 minutes Smoking Cessation Education: over 10 minutes Medications reviewed and adjusted accordingly: Yes Anticipated discharge: Home, SNF
[2019-04-01] MEDS ORDERED: VANCOMYCIN HCL INJ 1000 MG VIAL IV SCH (10:00)
[2019-04-01] MEDS: INSULIN REG, HUMAN 100 UNIT/ML 3 ML VIAL (PYX) SUBCUT SCH ×2 (11:38→19:50)
[2019-04-01] MEDS: DOCUSATE SODIUM 100 MG CAPSULE PO SCH ×2 (11:43→19:50)
[2019-04-01] MEDS: NICOTINE 14 MG/24 HR PATCH.TD24 TD SCH (12:26)
[2019-04-01] MEDS ORDERED: PROPOFOL INJ 200 MG/20 ML VIAL IV ONE (16:34)
[2019-04-01] MEDS ORDERED: FENTANYL CITRATE INJ/PF 250 MCG/5 ML AMPULE ONE (16:34)
[2019-04-01] MEDS ORDERED: MIDAZOLAM 2 MG/2 ML INJ ONE (16:34)
[2019-04-01] MEDS ORDERED: DIPHENHYDRAMINE HCL 50 MG/ML VIAL IV PRN (17:47)
[2019-04-01] MEDS ORDERED: PROMETHAZINE HCL INJ 25 MG/1 ML VIAL IV PRN ×2 (17:47)
[2019-04-01] MEDS ORDERED: ONDANSETRON HCL INJ/PF 4 MG/2 ML SDV IV PRN (17:47)
[2019-04-01] MEDS ORDERED: MEPERIDINE HCL/PF INJ 25 MG/1 ML DISP.SYRIN IV PRN (17:47)
[2019-04-01] MEDS ORDERED: FENTANYL CITRATE INJ/PF 100 MCG/2 ML AMPUL IV PRN ×3 (17:47)
[2019-04-01] MEDS ORDERED: HYDROMORPHONE HCL INJ/PF 2 MG/ML AMPULE ONE (19:39)
--- NOTE | 2019-04-01 21:55 | EKG REPORT ---
SEVERITY:- NORMAL ECG - SINUS RHYTHM : Confirmed by: Kwadwo Spencer 01-Apr-2019 21:54:22
[2019-04-01] MEDS ORDERED: VANCOMYCIN HCL 1,250 MG in DEXTROSE 5%-WATER 250 ML IV SCH (22:00)
[2019-04-01] MEDS ORDERED: HYDROMORPHONE HCL INJ/PF 2 MG/ML AMPULE IV ONE (22:30)
--- NOTE | 2019-04-01 22:40 | Operative Report ---
Operative Report DATE OF SURGERY: 04/01/19 PREOPERATIVE DIAGNOSIS: Infected right transmetatarsal amputation stump POSTOPERATIVE DIAGNOSIS: Same OPERATION: Right below-knee amputation SURGEON: YURI SCHAEFFER ANESTHESIA: Spinal TISSUE REMOVED OR ALTERED: Right distal lower leg and foot COMPLICATIONS: None ESTIMATED BLOOD LOSS: 300 cc PROCEDURE: After adequate spinal anesthesia patient was placed in supine position with the right lower leg prepped and draped in the usual sterile fashion. Appropriate timeout was then called. Next a transverse incision 10 cm from the right tibial tubercle going retirement anteriorly and distal incision extended distally to about 15 cm and connected in a transverse posterior fashion. Anterior incision was then deepened through the tibia as well as the anterior tibial muscles. The anterior tibial muscles were divided with the use of electrocautery. The fibula also identified and also periosteum elevated approximately as well as the right tibia. The tibia was then divided with the use of battery-operated oscillating saw. Same was done on the fibula. The peroneal vessels were identified clamped cut and suture-ligated with 2-0 Vicryl sutures. The fibula and tibia were then shaved posteriorly all await all the way down to the end of the incision. The posterior tibial artery was then identified clamped and suture-ligated with 0-0 Vicryl. The sciatic nerve was lifted and subsequently suture-ligated just above the bone transection. The anterior part of the tibia was then divided with the saw and an angle and subsequently filed to smooth palpation. The fibula was further trimmed approximately just above the tibia with the use of a rondure. The ends were palpated to be smooth. The gastric medial gastrocnemius muscle was then folded up and sutured around the tibia with the use of 2-0 Vicryl. The fascia of the gastrocnemius muscle was then reapproximated to the anterior fascia with the same 2-0 Vicryl sutures. This was then throughout the anterior incision. The skin was trimmed and stapled together. The stump was subsequent subsequently dressed with 4 x 4 ABD and Kerlix. A posterior splint using about 7 layers of 5inch plaster of Demi then subsequently wrapped with Kerlix and Covan. Patient tolerated procedure well. Needle instrument sponge counts were all correct. Estimated blood loss about 300 cc. Patient then brought back to recovery room in satisfactory condition.
[2019-04-01] MEDS: HYDROMORPHONE HCL INJ/PF 2 MG/ML AMPULE IV PRN ×2 (22:57→23:54)
[2019-04-01] MEDS: HYDRALAZINE HCL INJ/PF 20 MG/1 ML SDV IV PRN (23:18)
[2019-04-02] MEDS: NORMAL SALINE 1000 ML 1,000 ML IV PRN ×2 (00:23→14:22)
[2019-04-02] MEDS: KETOROLAC TROMETHAMINE INJ/PF 30 MG/1 ML SDV IV SCH ×4 (00:25→17:15)
[2019-04-02] MEDS: INSULIN REG, HUMAN 100 UNIT/ML 3 ML VIAL (PYX) SUBCUT SCH ×4 (00:26→17:25)
[2019-04-02] MEDS ORDERED: VANCOMYCIN HCL 1,250 MG in DEXTROSE 5%-WATER 250 ML IV ONE (00:30)
[2019-04-02] MEDS: HYDROMORPHONE HCL INJ/PF 2 MG/ML AMPULE IV PRN ×5 (03:10→21:22)
[2019-04-02] MEDS: PIPERACILLIN SODIUM/TAZOBACTAM 3.375 GM in NORMAL SALINE 100 ML IV SCH ×4 (03:34→21:13)
[2019-04-02 05:26] LABS: HEMATOCRIT 27.3 % (37.9-51.0); HEMOGLOBIN 8.9 g/dL (13.5-17.0); MEAN CORPUSCULAR HEMOGLOBIN 25.7 pg (27.0-33.4); MEAN CORPUSCULAR HGB CONC 32.6 g/dL (32.0-36.0); MEAN CORPUSCULAR VOLUME 79 fl (80-97); PLATELET COUNT 543 10^3/uL (150-450); RED BLOOD COUNT 3.47 10^6/uL (4.35-5.55); RED CELL DISTRIBUTION WIDTH 15.3 % (11.5-14.0)
[2019-04-02 05:46] LABS: ALANINE AMINOTRANSFERASE 35 U/L (21-72); ALBUMIN 2.6 g/dL (3.5-5.0); ALKALINE PHOSPHATASE 88 U/L (38-126); ANION GAP 8 (5-19); ASPARTATE AMINO TRANSFERASE 30 U/L (17-59); BILIRUBIN,DIRECT 0.2 mg/dL (0.0-0.4); BILIRUBIN,TOTAL 0.4 mg/dL (0.2-1.3); BLOOD UREA NITROGEN 15 mg/dL (7-20); CALCIUM 8.4 mg/dL (8.4-10.2); CARBON DIOXIDE 27 mmol/L (22-30); CHLORIDE 99 mmol/L (98-107); GLUCOSE 167 mg/dL (75-110); POTASSIUM 4.8 mmol/L (3.6-5.0); TOTAL PROTEIN 6.2 g/dL (6.3-8.2)
[2019-04-02] MEDS ORDERED: PROMETHAZINE HCL INJ 25 MG/1 ML VIAL IV PRN (07:53)
[2019-04-02] MEDS ORDERED: PROMETHAZINE HCL INJ 25 MG/1 ML VIAL ONE (08:05)
--- NOTE | 2019-04-02 09:32 | PDOC PROGRESS REPORT ---
Subjective Progress Note for:: 04/02/19 Subjective:: 63 year old male who presents the emergency room with a 10-day history of right foot pain. 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 He has not been compliant with receiving care at the wound clinic and recently has been "taking care of his foot by himself at home". He admits that over the last several months he is been having gradually worsening pain but approximately 10 days ago he developed severe pain in his right foot. He describes the pain as a constant, severe, sharp stabbing in the end of the transmetatarsal stump of his right foot. The pain is worsened by weightbearing, does not radiate and has not responded to ibuprofen or acetaminophen. He further relates that a piece of bone fell out of his foot wound earlier today. He admits prior similar problems with his left foot that resulted in an amputation of his left great toe. He has not identified any other aggravating or ameliorating factors for his right foot pain. In the emergency room he was found to have a leukocytosis, radiographic changes consistent with osteomyelitis of the right foot and obvious gangrene of the right foot on visual inspection. Dr. Mauro was notified about the patient and insisted that the hospital service should admit this patient because he has diabetes, hypertension and some mild electrolyte abnormalities. Patient was subsequently admitted to the hospital for further evaluation and treatment. 04/01/[id number]-rnmh-old male came in with right foot osteomyelitis. It is foul- smelling. Patient has history of partial amputation of the right foot before. He is not following with the wound care center after that. X-rays done in the emergency room found to be consistent with osteomyelitis possible gangrene. Dr. Mauro was notified yesterday and Dr. Aldana admit the patient and to consult surgeon in the morning. I spoke to Dr. Hernandez this morning he was here just a minute ago to examine the patient. Patient is going to be n.p.o. in the meantime. Patient is complaining of severe pains he is on morphine [id number]. Blood cultures are pending. Presently on IV vancomycin and Zosyn. 04/02/[id number]-ppld-old male came in with infected right first metatarsal amputation stump. s/p right BKA. Patient complains of nausea and vomiting this morning plan is to do the KUB and started on Phenergan 4 mg IV every 4 PRN for nausea vomiting. At the time of my examination patient is comfortably in the bed eating breakfast. Reason For Visit: OSTEOMYELITIS RIGHT FOOT Physical Exam Vital Signs: Temp Pulse Resp BP Pulse Ox 98 F 79 19 148/79 H 99 04/02/19 07:00 04/02/19 07:00 04/02/19 07:00 04/02/19 07:00 04/02/19 07:00 Intake & Output 04/01/19 04/02/19 04/03/19 06:59 06:59 06:59 Intake Total 1000 2950 Output Total 1490 Balance 1000 1460 Weight 74.888 kg 76.702 kg General appearance: PRESENT: no acute distress Head exam: PRESENT: atraumatic Eye exam: PRESENT: PERRLA Ear exam: PRESENT: normal external ear exam Mouth exam: PRESENT: dry mucosa, neck supple Teeth exam: PRESENT: poor dentation Neck exam: ABSENT: carotid bruit, JVD, lymphadenopathy, thyromegaly Respiratory exam: PRESENT: clear to auscultation melonie. ABSENT: rales, rhonchi, wheezes Cardiovascular exam: PRESENT: RRR. ABSENT: diastolic murmur, rubs, systolic murmur GI/Abdominal exam: PRESENT: normal bowel sounds, soft, other - abdomen was soft slightly distended bowel sounds are present.. ABSENT: distended, guarding, mass, organolmegaly, rebound, tenderness Rectal exam: PRESENT: deferred Extremities exam: PRESENT: other - Right BKA wrapped in Hugo wrap. Neurological exam: PRESENT: alert, awake, oriented to person, oriented to place, oriented to time, oriented to situation, CN II-XII grossly intact. ABSENT: motor sensory deficit Psychiatric exam: PRESENT: appropriate affect, normal mood. ABSENT: homicidal ideation, suicidal ideation Results Laboratory Results: 04/02/19 05:10 04/02/19 05:10 04/01/19 04/01/19 04/02/19 10:50 16:38 05:10 WBC 18.0 H RBC 3.47 L Hgb 8.9 L Hct 27.3 L MCV 79 L MCH 25.7 L MCHC 32.6 RDW 15.3 H Plt Count 543 H Sodium Potassium Chloride Carbon Dioxide Anion Gap BUN Creatinine Est GFR ( Amer) Est GFR (Non-Af Amer) Glucose Lactic Acid 0.8 Calcium Magnesium Total Bilirubin AST ALT Alkaline Phosphatase Total Protein Albumin Blood Type A POSITIVE Antibody Screen NEGATIVE 04/02/19 05:10 WBC RBC Hgb Hct MCV MCH MCHC RDW Plt Count Sodium 133.8 L Potassium 4.8 Chloride 99 Carbon Dioxide 27 Anion Gap 8 BUN 15 Creatinine 0.83 Est GFR ( Amer) > 60 Est GFR (Non-Af Amer) > 60 Glucose 167 H Lactic Acid Calcium 8.4 Magnesium 2.1 Total Bilirubin 0.4 AST 30 ALT 35 Alkaline Phosphatase 88 Total Protein 6.2 L Albumin 2.6 L Blood Type Antibody Screen Impressions: Foot X-Ray 03/31/19 18:25 IMPRESSION: Status post forefoot amputation. Given heterogeneous mineralization and indistinct distal margins of the tarsal bone remnants in the setting of adjacent soft tissue infection, findings are worrisome for osseous extension/osteomyelitis. Tibia/Fibula X-Ray 03/31/19 18:25 IMPRESSION: NEGATIVE STUDY OF THE RIGHT TIBIA AND FIBULA. NO RADIOGRAPHIC EVIDENCE OF ACUTE INJURY. Assessment and Plan - Diagnosis (1) Osteomyelitis of foot, right, acute Is this a current diagnosis for this admission?: Yes Plan: Patient's osteomyelitis will be treated with IV antibiotics utilizing Zosyn and vancomycin. A surgical consultation will be obtained with Dr. Mauro. Daily CBCs, metabolic profiles and magnesium levels will be obtained. Patient's pain will be treated with morphine sulfate 2 to 4 mg IV every 2 hours on a as needed basis via sliding scale. 04/01/2019-patient admitted with possible osteomyelitis x-ray suggestive of highly likely possibility of osteo-he was started on vancomycin and Zosyn MRI of the right foot was requested. He is receiving IV morphine [id number]. WBC count came down from 27,000-20,000 today hemoglobin is 8.8 and platelet count is 555 looks like reactive thrombocytosis. dr booth is here to examine the patient. Probably patient go for surgery tomorrow. 04/02/2019-patient admitted with right TMA stump infection status post right BKA. PT OT consult was requested merchandise planner consult was requested. wound Cultures are showing gram-negative rods. WBC count is 18,000. Patient is presently on IV vancomycin and Zosyn. (2) Essential hypertension Is this a current diagnosis for this admission?: Yes Plan: Patient will be continued on his usual medications for hypertension and his blood pressure will be observed closely throughout his hospital stay. 04/01/2019-patient blood pressure today is 124/67 stable. Plan is to continue the IV fluids at this point. 06/03/2019-patient blood pressure today is 149/69. Plan is to restart his home medications and to start on IV hydralazine 10 mg every 4 hours PRN for systolic blood pressure more than 160. (3) Hyponatremia Is this a current diagnosis for this admission?: Yes Plan: 04/01/2019-patient serum sodium is 131.4 hyponatremia most likely secondary to poor oral intake. 04/02/2019-serum sodium is 133.8. Hyponatremia is improving. Most likely secondary to poor oral intake. (4) Diabetes mellitus type 2 in nonobese Is this a current diagnosis for this admission?: Yes Plan: Patient will be continued on his usual diabetic regiment and diabetic diet. Hemoglobin A1c will be obtained to evaluate his current therapy. A sliding scale insulin regiment will be in place for use with before meals and at bedtime Accu-Cheks. A hypoglycemic protocol will also be in place. 04/01/2019-latest blood sugar is 205 and hemoglobin A1c is 7.8 he is going to be n.p.o. to check blood sugars every 6 hours. 04/02/2019-patient's latest blood sugar is 61 and hemoglobin A1c 7.8 he was started on carb diet from today. To change the blood sugars check to before meals and at bedtime with insulin sliding scale coverage. (5) Tobacco use disorder, severe, dependence Is this a current diagnosis for this admission?: Yes (6) Thrombocytosis Is this a current diagnosis for this admission?: Yes (7) Leukocytosis Qualifiers: Leukocytosis type: unspecified Qualified Code(s): D72.829 - Elevated white blood cell count, unspecified Is this a current diagnosis for this admission?: Yes (8) Osteomyelitis Qualifiers: Osteomyelitis type: other acute Osteomyelitis location: foot Laterality: right Qualified Code(s): M86.171 - Other acute osteomyelitis, right ankle and foot Is this a current diagnosis for this admission?: Yes - Time Time Spent with patient: 25-34 minutes Smoking Cessation Education: over 10 minutes Medications reviewed and adjusted accordingly: Yes Anticipated discharge: Home, Home with Homehealth
[2019-04-02] MEDS: FAMOTIDINE 20 MG TABLET PO SCH ×2 (09:37→21:22)
[2019-04-02] MEDS: DOCUSATE SODIUM 100 MG CAPSULE PO SCH ×2 (09:37→17:15)
[2019-04-02] MEDS: VANCOMYCIN HCL 1,250 MG in DEXTROSE 5%-WATER 250 ML IV SCH ×2 (09:39→23:00)
[2019-04-02] MEDS: NICOTINE 14 MG/24 HR PATCH.TD24 TD SCH (09:50)
--- NOTE | 2019-04-02 13:28 | RADIOLOGY REPORT (SQ) ---
EXAM DESCRIPTION: KUB/ABDOMEN (SINGLE VIEW) COMPLETED DATE/TIME: 04/02/2019 1:14 pm REASON FOR STUDY: Nausea/vomiting COMPARISON: None. NUMBER OF VIEWS: One view. TECHNIQUE: Supine radiographic image of the abdomen acquired. LIMITATIONS: None. FINDINGS: BOWEL GAS PATTERN: Large bowel gas predominantly. Nonobstructive gas pattern. CALCIFICATIONS: No suspicious calcifications. SOFT TISSUES: No gross mass or suggestion of organomegaly. HARDWARE: None in the abdomen. BONES: No acute fracture. No worrisome bone lesions. OTHER: No other significant finding. IMPRESSION: Nonspecific abdomen. TECHNICAL DOCUMENTATION: JOB ID: [id number] [employer]- All Rights Reserved Reading location - IP/workstation name: [email or web address]
--- NOTE | 2019-04-02 19:38 | PDOC PROGRESS REPORT ---
Subjective Progress Note for:: 04/02/19 Subjective:: pains right BKA stump Reason For Visit: OSTEOMYELITIS RIGHT FOOT Physical Exam Vital Signs: Temp Pulse Resp BP Pulse Ox 97.1 F 66 18 117/69 100 04/02/19 16:59 04/02/19 17:56 04/02/19 16:59 04/02/19 17:56 04/02/19 16:59 Intake & Output 04/01/19 04/02/19 04/03/19 06:59 06:59 06:59 Intake Total 1000 2950 3470 Output Total 1490 950 Balance 1000 1460 2520 Weight 74.888 kg 76.702 kg Exam: stump dressing intact,dry Results Laboratory Results: 04/02/19 05:10 04/02/19 05:10 04/01/19 04/02/19 04/02/19 16:38 05:10 05:10 WBC 18.0 H RBC 3.47 L Hgb 8.9 L Hct 27.3 L MCV 79 L MCH 25.7 L MCHC 32.6 RDW 15.3 H Plt Count 543 H Sodium 133.8 L Potassium 4.8 Chloride 99 Carbon Dioxide 27 Anion Gap 8 BUN 15 Creatinine 0.83 Est GFR ( Amer) > 60 Est GFR (Non-Af Amer) > 60 Glucose 167 H Calcium 8.4 Magnesium 2.1 Total Bilirubin 0.4 AST 30 ALT 35 Alkaline Phosphatase 88 Total Protein 6.2 L Albumin 2.6 L Blood Type A POSITIVE Antibody Screen NEGATIVE 03/31/19 21:04 Foot - Right Gram Stain - Final Impressions: Foot X-Ray 03/31/19 18:25 IMPRESSION: Status post forefoot amputation. Given heterogeneous mineralization and indistinct distal margins of the tarsal bone remnants in the setting of adjacent soft tissue infection, findings are worrisome for osseous extension/osteomyelitis. Tibia/Fibula X-Ray 03/31/19 18:25 IMPRESSION: NEGATIVE STUDY OF THE RIGHT TIBIA AND FIBULA. NO RADIOGRAPHIC EVIDENCE OF ACUTE INJURY. KUB X-Ray 04/02/19 00:00 IMPRESSION: Nonspecific abdomen. Assessment & Plan - Diagnosis (1) Diabetes mellitus type 2 in nonobese Is this a current diagnosis for this admission?: Yes (2) Essential hypertension Is this a current diagnosis for this admission?: Yes (3) Leukocytosis Qualifiers: Leukocytosis type: unspecified Qualified Code(s): D72.829 - Elevated white blood cell count, unspecified Is this a current diagnosis for this admission?: Yes (4) Osteomyelitis of foot, right, acute Is this a current diagnosis for this admission?: Yes (5) Tobacco use disorder, severe, dependence Is this a current diagnosis for this admission?: Yes - Time Time Spent with patient: 15-24 minutes - Inpatient Certification Medical Necessity: Need for Pain Control, Need for IV Antibiotics - Plan Summary Plan Summary: POD # 1 post rt BKA WBC is trending down Pains better controlled with meds Continue IV antibiotics
[2019-04-02 21:56] LABS: VANCOMYCIN,TROUGH 18.5 ug/mL (5.0-20.0)
[2019-04-03] MEDS: KETOROLAC TROMETHAMINE INJ/PF 30 MG/1 ML SDV IV SCH ×4 (00:57→17:43)
[2019-04-03] MEDS: PIPERACILLIN SODIUM/TAZOBACTAM 3.375 GM in NORMAL SALINE 100 ML IV SCH ×4 (03:54→20:15)
[2019-04-03] MEDS: NORMAL SALINE 1000 ML 1,000 ML IV PRN (04:00)
[2019-04-03 07:33] LABS: ABSOLUTE EOSINOPHILS # (AUTO) 0.4 10^3/uL (0.0-0.6); ABSOLUTE MONOCYTES (AUTO) 0.7 10^3/uL (0.1-1.4); ABSOLUTE NEUT (AUTO) 9.5 10^3/uL (1.7-8.2); BASOPHILS % (AUTO) 0.2 % (0-2); EOSINOPHILS % (AUTO) 3.2 % (0-6); HEMATOCRIT 26.3 % (37.9-51.0); HEMOGLOBIN 8.6 g/dL (13.5-17.0); LYMPHOCYTES % (AUTO) 8.5 % (13-45); MEAN CORPUSCULAR HEMOGLOBIN 25.9 pg (27.0-33.4); MEAN CORPUSCULAR HGB CONC 32.7 g/dL (32.0-36.0); MEAN CORPUSCULAR VOLUME 79 fl (80-97); MONOCYTES % (AUTO) 5.7 % (3-13); PLATELET COUNT 611 10^3/uL (150-450); RED BLOOD COUNT 3.31 10^6/uL (4.35-5.55); RED CELL DISTRIBUTION WIDTH 15.1 % (11.5-14.0); SEGMENTED NEUTROPHILS % (AUTO) 82.4 % (42-78); TOTAL CELLS COUNTED % (AUTO) 100 %; WHITE BLOOD COUNT 11.5 10^3/uL (4.0-10.5)
[2019-04-03 07:51] LABS: ALANINE AMINOTRANSFERASE 32 U/L (21-72); ALBUMIN 2.5 g/dL (3.5-5.0); ALKALINE PHOSPHATASE 91 U/L (38-126); ANION GAP 6 (5-19); ASPARTATE AMINO TRANSFERASE 28 U/L (17-59); BILIRUBIN,DIRECT 0.1 mg/dL (0.0-0.4); BILIRUBIN,TOTAL 0.1 mg/dL (0.2-1.3); BLOOD UREA NITROGEN 16 mg/dL (7-20); CALCIUM 7.8 mg/dL (8.4-10.2); CARBON DIOXIDE 29 mmol/L (22-30); CHLORIDE 102 mmol/L (98-107); GLUCOSE 102 mg/dL (75-110); TOTAL PROTEIN 5.8 g/dL (6.3-8.2)
[2019-04-03] MEDS: HYDROMORPHONE HCL INJ/PF 2 MG/ML AMPULE IV PRN ×3 (08:04→15:47)
[2019-04-03] MEDS: INSULIN REG, HUMAN 100 UNIT/ML 3 ML VIAL (PYX) SUBCUT SCH ×4 (08:07→21:16)
--- NOTE | 2019-04-03 08:39 | PDOC PROGRESS REPORT ---
Subjective Progress Note for:: 04/03/19 Subjective:: 63 year old male who presents the emergency room with a 10-day history of right foot pain. 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 He has not been compliant with receiving care at the wound clinic and recently has been "taking care of his foot by himself at home". He admits that over the last several months he is been having gradually worsening pain but approximately 10 days ago he developed severe pain in his right foot. He describes the pain as a constant, severe, sharp stabbing in the end of the transmetatarsal stump of his right foot. The pain is worsened by weightbearing, does not radiate and has not responded to ibuprofen or acetaminophen. He further relates that a piece of bone fell out of his foot wound earlier today. He admits prior similar problems with his left foot that resulted in an amputation of his left great toe. He has not identified any other aggravating or ameliorating factors for his right foot pain. In the emergency room he was found to have a leukocytosis, radiographic changes consistent with osteomyelitis of the right foot and obvious gangrene of the right foot on visual inspection. Dr. Mauro was notified about the patient and insisted that the hospital service should admit this patient because he has diabetes, hypertension and some mild electrolyte abnormalities. Patient was subsequently admitted to the hospital for further evaluation and treatment. 04/01/[id number]-bhoc-old male came in with right foot osteomyelitis. It is foul- smelling. Patient has history of partial amputation of the right foot before. He is not following with the wound care center after that. X-rays done in the emergency room found to be consistent with osteomyelitis possible gangrene. Dr. Mauro was notified yesterday and Dr. Aldana admit the patient and to consult surgeon in the morning. I spoke to Dr. Hernandez this morning he was here just a minute ago to examine the patient. Patient is going to be n.p.o. in the meantime. Patient is complaining of severe pains he is on morphine [id number]. Blood cultures are pending. Presently on IV vancomycin and Zosyn. 04/02/[id number]-kizs-old male came in with infected right first metatarsal amputation stump. s/p right BKA. Patient complains of nausea and vomiting this morning plan is to do the KUB and started on Phenergan 4 mg IV every 4 PRN for nausea vomiting. At the time of my examination patient is comfortably in the bed eating breakfast. 04/03/[id number]-xdwy-old male admitted with infected right foot metatarsal amputated stump status post a right BKA. Doing well. IV vancomycin and Zosyn wound cultures are positive breast gram-positive cocci in pairs. WBC count came down to 11,500. No acute events in the last 24 hours. Afebrile. Reason For Visit: OSTEOMYELITIS RIGHT FOOT Physical Exam Vital Signs: Temp Pulse Resp BP Pulse Ox 98.5 F 68 16 126/67 H 98 04/02/19 21:33 04/02/19 21:33 04/02/19 21:33 04/02/19 21:33 04/02/19 21:33 Intake & Output 04/02/19 04/03/19 04/04/19 06:59 06:59 06:59 Intake Total 2950 4920 Output Total 1490 1625 Balance 1460 3295 Weight 76.702 kg 76.249 kg General appearance: PRESENT: no acute distress, cooperative Head exam: PRESENT: atraumatic Eye exam: PRESENT: PERRLA Ear exam: PRESENT: normal external ear exam Mouth exam: PRESENT: dry mucosa Teeth exam: PRESENT: poor dentation Neck exam: ABSENT: carotid bruit, JVD, lymphadenopathy, thyromegaly Respiratory exam: PRESENT: clear to auscultation melonie. ABSENT: rales, rhonchi, wheezes Cardiovascular exam: PRESENT: RRR. ABSENT: diastolic murmur, rubs, systolic murmur GI/Abdominal exam: PRESENT: normal bowel sounds, soft. ABSENT: distended, guarding, mass, organolmegaly, rebound, tenderness Rectal exam: PRESENT: deferred Extremities exam: PRESENT: other - Right BKA surgical site is wrapped in Hugo Neurological exam: PRESENT: alert, awake, oriented to person, oriented to place, oriented to time, oriented to situation, CN II-XII grossly intact. ABSENT: motor sensory deficit Psychiatric exam: PRESENT: appropriate affect, normal mood. ABSENT: homicidal ideation, suicidal ideation Results Laboratory Results: 04/03/19 06:34 04/03/19 06:34 0704/03/19 04/03/19 16:38 06:34 06:34 WBC 11.5 H RBC 3.31 L Hgb 8.6 L Hct 26.3 L MCV 79 L MCH 25.9 L MCHC 32.7 RDW 15.1 H Plt Count 611 H Seg Neutrophils % 82.4 H Lymphocytes % 8.5 L Monocytes % 5.7 Eosinophils % 3.2 Basophils % 0.2 Absolute Neutrophils 9.5 H Absolute Lymphocytes 1.0 Absolute Monocytes 0.7 Absolute Eosinophils 0.4 Absolute Basophils 0.0 Sodium 137.1 Potassium 5.0 Chloride 102 Carbon Dioxide 29 Anion Gap 6 BUN 16 Creatinine 0.90 Est GFR ( Amer) > 60 Est GFR (Non-Af Amer) > 60 Glucose 102 Calcium 7.8 L Magnesium 2.0 Total Bilirubin 0.1 L AST 28 ALT 32 Alkaline Phosphatase 91 Total Protein 5.8 L Albumin 2.5 L Blood Type A POSITIVE Antibody Screen NEGATIVE 03/31/19 21:04 Foot - Right Gram Stain - Final Impressions: Foot X-Ray 03/31/19 18:25 IMPRESSION: Status post forefoot amputation. Given heterogeneous voucher examiner alization and indistinct distal margins of the tarsal bone remnants in the setting of adjacent soft tissue infection, findings are worrisome for osseous extension/osteomyelitis. Tibia/Fibula X-Ray 03/31/19 18:25 IMPRESSION: NEGATIVE STUDY OF THE RIGHT TIBIA AND FIBULA. NO RADIOGRAPHIC EVIDENCE OF ACUTE INJURY. KUB X-Ray 04/02/19 00:00 IMPRESSION: Nonspecific abdomen. Assessment and Plan - Diagnosis (1) Osteomyelitis of foot, right, acute Is this a current diagnosis for this admission?: Yes Plan: Patient's osteomyelitis will be treated with IV antibiotics utilizing Zosyn and vancomycin. A surgical consultation will be obtained with Dr. Mauro. Daily CBCs, metabolic profiles and magnesium levels will be obtained. Patient's pain will be treated with morphine sulfate 2 to 4 mg IV every 2 hours on a as needed basis via sliding scale. 04/01/2019-patient admitted with possible osteomyelitis x-ray suggestive of highl y likely possibility of osteo-he was started on vancomycin and Zosyn MRI of the right foot was requested. He is receiving IV morphine [id number]. WBC count came down from 27,000-20,000 today hemoglobin is 8.8 and platelet count is 555 looks like reactive thrombocytosis. dr booth is here to examine the patient. Probably patient go for surgery tomorrow. 04/02/2019-patient admitted with right TMA stump infection status post right BKA. PT OT consult was requested maintenance planner consult was requested. wound Cultures are showing gram-negative rods. WBC count is 18,000. Patient is presently on IV vancomycin and Zosyn. 04/03/2019-patient came in with right TMA stump infection status post right BKA patient is refusing rehab placement. Physical therapy consult was requested occupational therapy consult was requested presently on IV vancomycin and Zosyn WBC count of came down to 11,500. Wound cultures are positive for gram-positive cocci in chains. Plan is to continue the present management now. (2) Essential hypertension Is this a current diagnosis for this admission?: Yes Plan: Patient will be continued on his usual medications for hypertension and his blood pressure will be observed closely throughout his hospital stay. 04/01/2019-patient blood pressure today is 124/67 stable. Plan is to continue the IV fluids at this point. 04/02/2019-patient blood pressure today is 149/69. Plan is to restart his home medications and to start on IV hydralazine 10 mg every 4 hours PRN for systolic blood pressure more than 160. 04/03/2019-patient blood pressure today is 126/67 stable. On IV hydralazine 10 mg every 4 hours as needed for systolic blood pressure more than 150. (3) Hyponatremia Is this a current diagnosis for this admission?: Yes Plan: 04/01/2019-patient serum sodium is 131.4 hyponatremia most likely secondary to poor oral intake. 04/02/2019-serum sodium is 133.8. Hyponatremia is improving. Most likely secondary to poor oral intake. 04/03/2019-patient's serum sodium is 137 hyponatremia due to poor oral intake re solved. (4) Diabetes mellitus type 2 in nonobese Is this a current diagnosis for this admission?: Yes Plan: Patient will be continued on his usual diabetic regiment and diabetic diet. Hemoglobin A1c will be obtained to evaluate his current therapy. A sliding scale insulin regiment will be in place for use with before meals and at bedtime Accu-Cheks. A hypoglycemic protocol will also be in place. 04/01/2019-latest blood sugar is 205 and hemoglobin A1c is 7.8 he is going to be n.p.o. to check blood sugars every 6 hours. 04/02/2019-patient's latest blood sugar is 161 and hemoglobin A1c 7.8 he was started on carb diet from today. To change the blood sugars check to before meals and at bedtime with insulin sliding scale coverage. 04/03/2019-patient latest blood sugar is 123, hemoglobin A1c 7.8. Presently on insulin sliding scale before meals and at bedtime. Dietary consult was requested. (5) Tobacco use disorder, severe, dependence Is this a current diagnosis for this admission?: Yes (6) Thrombocytosis Is this a current diagnosis for this admission?: Yes (7) Leukocytosis Qualifiers: Leukocytosis type: unspecified Qualified Code(s): D72.829 - Elevated white blood cell count, unspecified Is this a current diagnosis for this admission?: Yes Plan: 04/01/2019-patient came in with WBC count of 27,000 improved to 20,000 today most likely secondary to osteomyelitis. 04/02/2019-WBC count is 11,500 on admission 27,000. Improved with ambulation and antibiotics. (8) Osteomyelitis Qualifiers: Osteomyelitis type: other acute Osteomyelitis location: foot Laterality: right Qualified Code(s): M86.171 - Other acute osteomyelitis, right ankle and foot Is this a current diagnosis for this admission?: Yes Plan: 04/03/2019-patient light most likely came in with right foot osteomyelitis status post right BKA. No MRI was done to confirm the diagnosis of osteomyelitis but x-ray is highly suspicious for right foot osteomyelitis. - Time Time Spent with patient: 25-34 minutes Medications reviewed and adjusted accordingly: Yes Anticipated discharge: Home
[2019-04-03] MEDS: FAMOTIDINE 20 MG TABLET PO SCH ×2 (09:54→21:19)
[2019-04-03] MEDS: DOCUSATE SODIUM 100 MG CAPSULE PO SCH ×2 (09:54→17:44)
--- NOTE | 2019-04-03 10:29 | PDOC PROGRESS REPORT ---
Subjective Progress Note for:: 04/03/19 Subjective:: No complaints. Reason For Visit: OSTEOMYELITIS RIGHT FOOT Physical Exam Vital Signs: Temp Pulse Resp BP Pulse Ox 97.2 F 70 14 133/71 H 97 04/03/19 07:53 04/03/19 08:36 04/03/19 07:53 04/03/19 08:36 04/03/19 07:53 Intake & Output 04/02/19 04/03/19 04/04/19 06:59 06:59 06:59 Intake Total 2950 4920 Output Total 1490 1625 Balance 1460 3295 Weight 76.702 kg 76.249 kg General appearance: PRESENT: no acute distress Respiratory exam: PRESENT: clear to auscultation melonie Cardiovascular exam: PRESENT: RRR Extremities exam: PRESENT: other - Stump wound is clean dry and intact with trevin. No swelling and no erythema. Results Laboratory Results: 04/03/19 06:34 04/03/19 06:34 04/01/19 04/03/19 04/03/19 16:38 06:34 06:34 WBC 11.5 H RBC 3.31 L Hgb 8.6 L Hct 26.3 L MCV 79 L MCH 25.9 L MCHC 32.7 RDW 15.1 H Plt Count 611 H Seg Neutrophils % 82.4 H Lymphocytes % 8.5 L Monocytes % 5.7 Eosinophils % 3.2 Basophils % 0.2 Absolute Neutrophils 9.5 H Absolute Lymphocytes 1.0 Absolute Monocytes 0.7 Absolute Eosinophils 0.4 Absolute Basophils 0.0 Sodium 137.1 Potassium 5.0 Chloride 102 Carbon Dioxide 29 Anion Gap 6 BUN 16 Creatinine 0.90 Est GFR ( Amer) > 60 Est GFR (Non-Af Amer) > 60 Glucose 102 Calcium 7.8 L Magnesium 2.0 Total Bilirubin 0.1 L AST 28 ALT 32 Alkaline Phosphatase 91 Total Protein 5.8 L Albumin 2.5 L Blood Type A POSITIVE Antibody Screen NEGATIVE 03/31/19 21:04 Foot - Right Gram Stain - Final Impressions: Foot X-Ray 03/31/19 18:25 IMPRESSION: Status post forefoot amputation. Given heterogeneous minerali zation and indistinct distal margins of the tarsal bone remnants in the setting of adjacent soft tissue infection, findings are worrisome for osseous extension/osteomyelitis. Tibia/Fibula X-Ray 03/31/19 18:25 IMPRESSION: NEGATIVE STUDY OF THE RIGHT TIBIA AND FIBULA. NO RADIOGRAPHIC EVIDENCE OF ACUTE INJURY. KUB X-Ray 04/02/19 00:00 IMPRESSION: Nonspecific abdomen. Assessment & Plan - Diagnosis (1) Osteomyelitis of foot, right, acute Is this a current diagnosis for this admission?: Yes Plan: Status post right below the knee amputation. Surgical site looks very good. Range of motion exercises given to the patient. May discharge patient home when okay with hospitalist. Follow-up with Dr. Barrett as an outpatient in 1-1/2 weeks. Please have patient continue range of motion exercises at home and use a knee immobilizer at home when he is resting. Stump sock if available at our hospital.
[2019-04-03] MEDS: VANCOMYCIN HCL 1,250 MG in DEXTROSE 5%-WATER 250 ML IV SCH ×2 (11:21→21:19)
[2019-04-03] MEDS: NICOTINE 14 MG/24 HR PATCH.TD24 TD SCH (12:00)
[2019-04-03] MEDS: HYDRALAZINE HCL INJ/PF 20 MG/1 ML SDV IV PRN (17:43)
[2019-04-04] MEDS: KETOROLAC TROMETHAMINE INJ/PF 30 MG/1 ML SDV IV SCH ×4 (00:28→18:13)
[2019-04-04] MEDS: PIPERACILLIN SODIUM/TAZOBACTAM 3.375 GM in NORMAL SALINE 100 ML IV SCH ×4 (03:13→20:33)
[2019-04-04] MEDS: INSULIN REG, HUMAN 100 UNIT/ML 3 ML VIAL (PYX) SUBCUT SCH ×3 (08:10→17:40)
--- NOTE | 2019-04-04 08:20 | PDOC PROGRESS REPORT ---
Subjective Progress Note for:: 04/04/19 Subjective:: 63 year old male who presents the emergency room with a 10-day history of right foot pain. 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 He has not been compliant with receiving care at the wound clinic and recently has been "taking care of his foot by himself at home". He admits that over the last several months he is been having gradually worsening pain but approximately 10 days ago he developed severe pain in his right foot. He describes the pain as a constant, severe, sharp stabbing in the end of the transmetatarsal stump of his right foot. The pain is worsened by weightbearing, does not radiate and has not responded to ibuprofen or acetaminophen. He further relates that a piece of bone fell out of his foot wound earlier today. He admits prior similar problems with his left foot that resulted in an amputation of his left great toe. He has not identified any other aggravating or ameliorating factors for his right foot pain. In the emergency room he was found to have a leukocytosis, radiographic changes consistent with osteomyelitis of the right foot and obvious gangrene of the right foot on visual inspection. Dr. Mauro was notified about the patient and insisted that the hospital service should admit this patient because he has diabetes, hypertension and some mild electrolyte abnormalities. Patient was subsequently admitted to the hospital for further evaluation and treatment. 04/01/[id number]-skqc-old male came in with right foot osteomyelitis. It is foul- smelling. Patient has history of partial amputation of the right foot before. He is not following with the wound care center after that. X-rays done in the emergency room found to be consistent with osteomyelitis possible gangrene. Dr. Mauro was notified yesterday and Dr. Aldana admit the patient and to consult surgeon in the morning. I spoke to Dr. Hernandez this morning he was here just a minute ago to examine the patient. Patient is going to be n.p.o. in the meantime. Patient is complaining of severe pains he is on morphine [id number]. Blood cultures are pending. Presently on IV vancomycin and Zosyn. 04/[id number]-wxqr-old male came in with infected right first metatarsal amputation stump. s/p right BKA. Patient complains of nausea and vomiting this morning plan is to do the KUB and started on Phenergan 4 mg IV every 4 PRN for nausea vomiting. At the time of my examination patient is comfortably in the bed eating breakfast. 04/[id number]-uwyx-old male admitted with infected right foot metatarsal amputated stump status post a right BKA. Doing well. IV vancomycin and Zosyn wound cultures are positive breast gram-positive cocci in pairs. WBC count came down to 11,500. No acute events in the last 24 hours. Afebrile. 04/04/[id number]-pgyq-old male admitted with right foot metatarsal amputated stump infection status post right BKA. He is doing well. Presently on IV vancomycin and Zosyn. Cultures came back positive for the proper dementia. Plan is to d iscontinue vancomycin and continue Zosyn. Reason For Visit: OSTEOMYELITIS RIGHT FOOT Physical Exam Vital Signs: Temp Pulse Resp BP Pulse Ox 98.9 F 78 18 151/74 H 95 04/04/19 04:00 04/04/19 04:00 04/04/19 04:00 04/04/19 04:00 04/04/19 04:00 Intake & Output 04/03/19 04/04/19 04/05/19 06:59 06:59 06:59 Intake Total 4920 1100 Output Total 1625 400 Balance 3295 700 Weight 76.249 kg 76.5 kg General appearance: PRESENT: no acute distress Head exam: PRESENT: atraumatic Eye exam: PRESENT: PERRLA Mouth exam: PRESENT: moist, tongue midline Teeth exam: PRESENT: poor dentation Neck exam: ABSENT: carotid bruit, JVD, lymphadenopathy, thyromegaly Respiratory exam: PRESENT: clear to auscultation melonie. ABSENT: rales, rhonchi, wheezes Cardiovascular exam: PRESENT: RRR. ABSENT: diastolic murmur, rubs, systolic murmur GI/Abdominal exam: PRESENT: normal bowel sounds, soft. ABSENT: distended, guarding, mass, organolmegaly, rebound, tenderness Rectal exam: PRESENT: deferred Extremities exam: PRESENT: other - rt BKA with dressing. Neurological exam: PRESENT: alert, awake, oriented to person, oriented to place, oriented to time, oriented to situation, CN II-XII grossly intact. ABSENT: motor sensory deficit Psychiatric exam: PRESENT: appropriate affect, normal mood. ABSENT: homicidal ideation, suicidal ideation Results Laboratory Results: 04/03/19 06:34 04/03/19 06:34 03/31/19 21:04 Foot - Right Gram Stain - Final Impressions: Foot X-Ray 03/31/19 18:25 IMPRESSION: Status post forefoot amputation. Given heterogeneous mineralization and indistinct distal margins of the tarsal bone remnants in the setting of adjacent soft tissue infection, findings are worrisome for osseous extension/osteomyelitis. Tibia/Fibula X-Ray 03/31/19 18:25 IMPRESSION: NEGATIVE STUDY OF THE RIGHT TIBIA AND FIBULA. NO RADIOGRAPHIC EVIDENCE OF ACUTE INJURY. KUB X-Ray 04/02/19 00:00 IMPRESSION: Nonspecific abdomen. Assessment and Plan - Diagnosis (1) Osteomyelitis of foot, right, acute Is this a current diagnosis for this admission?: Yes Plan: Patient's osteomyelitis will be treated with IV antibiotics utilizing Zosyn and vancomycin. A surgical consultation will be obtained with Dr. Mauro. Daily CBCs, metabolic profiles and magnesium levels will be obtained. Patient's pain will be treated with morphine sulfate 2 to 4 mg IV every 2 hours on a as needed basis via sliding scale. 04/01/2019-patient admitted with possible osteomyelitis x-ray suggestive of highly likely possibility of osteo-he was started on vancomycin and Zosyn MRI of the right foot was requested. He is receiving IV morphine [id number]. WBC count came down from 27,000-20,000 today hemoglobin is 8.8 and platelet count is 555 looks like reactive thrombocytosis. dr booth is here to examine the patient. Probably patient go for surgery tomorrow. 04/02/2019-patient admitted with right TMA stump infection status post right BKA. PT OT consult was requested capacity planner consult was requested. wound Cultures are showing gram-negative rods. WBC count is 18,000. Patient is presently on IV vancomycin and Zosyn. 04/03/2019-patient came in with right TMA stump infection status post right BKA patient is refusing rehab placement. Physical therapy consult was requested occupational therapy consult was requested presently on IV vancomycin and Zosyn WBC count of came down to 11,500. Wound cultures are positive for gram-positive cocci in chains. Plan is to continue the present management now. 04/04/2019-patient came with right TMA stump infection status post BKA. On vancomycin and Zosyn. Wound cultures came back positive for providentia. Plan is to discontinue vancomycin and Zosyn continue Zosyn. His WBC count today is 1500 coming back to normal. PT consult was requested rehab consult was requested. (2) Essential hypertension Is this a current diagnosis for this admission?: Yes Plan: Patient will be continued on his usual medications for hypertension and his blood pressure will be observed closely throughout his hospital stay. 04/01/2019-patient blood pressure today is 124/67 stable. Plan is to continue the IV fluids at this point. 04/02/2019-patient blood pressure today is 149/69. Plan is to restart his home medications and to start on IV hydralazine 10 mg every 4 hours PRN for systolic blood pressure more than 160. 04/03/2019-patient blood pressure today is 126/67 stable. On IV hydralazine 10 mg every 4 hours as needed for systolic blood pressure more than 150. 04/04/2019-patient blood pressure today is 151/74. Stable. Plan is to continue the present management. (3) Hyponatremia Is this a current diagnosis for this admission?: Yes Plan: 04/01/2019-patient serum sodium is 131.4 hyponatremia most likely secondary to poor oral intake. 04/02/2019-serum sodium is 133.8. Hyponatremia is improving. Most likely secondary to poor oral intake. 04/03/2019-patient's serum sodium is 137 hyponatremia due to poor oral intake resolved. 04/04/2019-serum sodium is 137 today hyponatremia resolved. (4) Diabetes mellitus type 2 in nonobese Is this a current diagnosis for this admission?: Yes Plan: Patient will be continued on his usual diabetic regiment and diabetic diet. H emoglobin A1c will be obtained to evaluate his current therapy. A sliding scale insulin regiment will be in place for use with before meals and at bedtime Accu- Cheks. A hypoglycemic protocol will also be in place. 04/01/2019-latest blood sugar is 205 and hemoglobin A1c is 7.8 he is going to be n.p.o. to check blood sugars every 6 hours. 04/02/2019-patient's latest blood sugar is 161 and hemoglobin A1c 7.8 he was started on carb diet from today. To change the blood sugars check to before meals and at bedtime with insulin sliding scale coverage. 04/03/2019-patient latest blood sugar is 123, hemoglobin A1c 7.8. Presently on insulin sliding scale before meals and at bedtime. Dietary consult was requested. 04/04/2019-patient's blood sugar is 110. Well-controlled. Hemoglobin A1c 7.8 plan is to continue the insulin sliding scale. (5) Tobacco use disorder, severe, dependence Is this a current diagnosis for this admission?: Yes (6) Thrombocytosis Is this a current diagnosis for this admission?: Yes Plan: 04/01/2019-placed since platelet count is 555 indicating chronic inflammation involving the right foot with osteomyelitis and gangrene. 04/04/2019-patient's platelet count is 611 thrombocytosis secondary to chronic inflammatory state. (7) Leukocytosis Qualifiers: Leukocytosis type: unspecified Qualified Code(s): D72.829 - Elevated white blood cell count, unspecified Is this a current diagnosis for this admission?: Yes (8) Osteomyelitis Qualifiers: Osteomyelitis type: other acute Osteomyelitis location: foot Laterality: right Qualified Code(s): M86.171 - Other acute osteomyelitis, right ankle and foot Is this a current diagnosis for this admission?: Yes - Time Time Spent with patient: 25-34 minutes Medications reviewed and adjusted accordingly: Yes Anticipated discharge: Home
[2019-04-04] MEDS: HYDRALAZINE HCL INJ/PF 20 MG/1 ML SDV IV PRN ×2 (08:47→20:33)
[2019-04-04] MEDS: HYDROMORPHONE HCL INJ/PF 2 MG/ML AMPULE IV PRN ×5 (08:48→22:42)
[2019-04-04] MEDS: FAMOTIDINE 20 MG TABLET PO SCH ×2 (10:22→22:42)
[2019-04-04] MEDS: DOCUSATE SODIUM 100 MG CAPSULE PO SCH ×3 (10:22→18:16)
[2019-04-04] MEDS: NICOTINE 14 MG/24 HR PATCH.TD24 TD SCH (12:01)
[2019-04-04] MEDS: ONDANSETRON HCL INJ/PF 4 MG/2 ML SDV IV PRN (18:22)
[2019-04-05] MEDS: INSULIN REG, HUMAN 100 UNIT/ML 3 ML VIAL (PYX) SUBCUT SCH ×5 (00:07→22:04)
[2019-04-05] MEDS: KETOROLAC TROMETHAMINE INJ/PF 30 MG/1 ML SDV IV SCH ×5 (00:52→23:25)
[2019-04-05] MEDS: PIPERACILLIN SODIUM/TAZOBACTAM 3.375 GM in NORMAL SALINE 100 ML IV SCH ×2 (02:10→09:14)
[2019-04-05] MEDS: HYDROMORPHONE HCL INJ/PF 2 MG/ML AMPULE IV PRN (02:10)
[2019-04-05 07:09] LABS: ABSOLUTE BASOPHILS # (AUTO) 0.1 10^3/uL (0.0-0.2); ABSOLUTE EOSINOPHILS # (AUTO) 0.6 10^3/uL (0.0-0.6); ABSOLUTE LYMPHOCYTES (AUTO) 1.5 10^3/uL (0.5-4.7); ABSOLUTE MONOCYTES (AUTO) 0.6 10^3/uL (0.1-1.4); ABSOLUTE NEUT (AUTO) 9.2 10^3/uL (1.7-8.2); BASOPHILS % (AUTO) 0.7 % (0-2); EOSINOPHILS % (AUTO) 4.7 % (0-6); HEMATOCRIT 24.9 % (37.9-51.0); HEMOGLOBIN 8.3 g/dL (13.5-17.0); LYMPHOCYTES % (AUTO) 12.2 % (13-45); MEAN CORPUSCULAR HEMOGLOBIN 26.1 pg (27.0-33.4); MEAN CORPUSCULAR HGB CONC 33.1 g/dL (32.0-36.0); MEAN CORPUSCULAR VOLUME 79 fl (80-97); MONOCYTES % (AUTO) 5.3 % (3-13); PLATELET COUNT 675 10^3/uL (150-450); RED BLOOD COUNT 3.17 10^6/uL (4.35-5.55); RED CELL DISTRIBUTION WIDTH 15.4 % (11.5-14.0); SEGMENTED NEUTROPHILS % (AUTO) 77.1 % (42-78); TOTAL CELLS COUNTED % (AUTO) 100 %
[2019-04-05 07:27] LABS: ALANINE AMINOTRANSFERASE 37 U/L (21-72); ALBUMIN 2.5 g/dL (3.5-5.0); ALKALINE PHOSPHATASE 79 U/L (38-126); ANION GAP 7 (5-19); ASPARTATE AMINO TRANSFERASE 37 U/L (17-59); BLOOD UREA NITROGEN 12 mg/dL (7-20); CALCIUM 7.7 mg/dL (8.4-10.2); CARBON DIOXIDE 28 mmol/L (22-30); CHLORIDE 103 mmol/L (98-107); GLUCOSE 123 mg/dL (75-110); POTASSIUM 4.7 mmol/L (3.6-5.0)
[2019-04-05 07:39] LABS: BILIRUBIN,TOTAL < 0.1 mg/dL (0.2-1.3)
[2019-04-05] MEDS: HYDRALAZINE HCL INJ/PF 20 MG/1 ML SDV IV PRN ×3 (07:59→21:45)
[2019-04-05] MEDS: ONDANSETRON HCL INJ/PF 4 MG/2 ML SDV IV PRN (07:59)
[2019-04-05] MEDS ORDERED: MORPHINE SULFATE 10 MG/ML INJ IV PRN (11:53)
[2019-04-05] MEDS: NICOTINE 14 MG/24 HR PATCH.TD24 TD SCH (14:36)
[2019-04-05] MEDS: DOCUSATE SODIUM 100 MG CAPSULE PO SCH ×2 (14:36→17:10)
[2019-04-05] MEDS: FAMOTIDINE 20 MG TABLET PO SCH ×2 (14:36→21:44)
[2019-04-05] MEDS: OXYCODONE HCL IR 5 MG TABLET PO PRN ×2 (14:43→21:56)
[2019-04-06] MEDS: HYDRALAZINE HCL INJ/PF 20 MG/1 ML SDV IV PRN (04:37)
[2019-04-06] MEDS: KETOROLAC TROMETHAMINE INJ/PF 30 MG/1 ML SDV IV SCH ×3 (06:11→13:21)
[2019-04-06] MEDS: INSULIN REG, HUMAN 100 UNIT/ML 3 ML VIAL (PYX) SUBCUT SCH ×2 (11:04→12:33)
[2019-04-06] MEDS: DOCUSATE SODIUM 100 MG CAPSULE PO SCH (11:10)
[2019-04-06] MEDS: OXYCODONE HCL IR 5 MG TABLET PO PRN (11:11)
[2019-04-06] MEDS: FAMOTIDINE 20 MG TABLET PO SCH (11:11)
[2019-04-06] MEDS: NICOTINE 14 MG/24 HR PATCH.TD24 TD SCH (11:12)
[2019-04-06] MEDS ORDERED: LISINOPRIL 10 MG TABLET PO ONE (11:17)
--- NOTE | 2019-04-06 11:28 | PDOC PROGRESS REPORT ---
Subjective Progress Note for:: 04/05/19 Subjective:: Patient seen resting in bed. He is awake, alert, oriented x3. He denies chest pain, shortness of breath or dyspnea at rest. He denies nausea, vomiting or abdominal pain. Nursing reports he was nauseous after he got IV Dilaudid earlier. He continues to have moderate pain at the right stump incision. He has been working with physical therapy. We discussed his plans for discharge. He states he would like to go home. He does not want to go to facility for [facility]. He is agreeable to home health physical therapy and nursing. He denies any other complaints at the present time. Remaining review of systems are negative Reason For Visit: OSTEOMYELITIS RIGHT FOOT Physical Exam Vital Signs: Temp Pulse Resp BP Pulse Ox 96.7 F L 90 18 170/80 H 100 04/05/19 11:45 04/05/19 11:45 04/05/19 11:45 04/05/19 11:45 04/05/19 11:45 Intake & Output 04/04/19 04/05/19 04/06/19 06:59 06:59 06:59 Intake Total 1100 300 340 Output Total 400 400 Balance 700 -100 340 Weight 76.5 kg General appearance: PRESENT: no acute distress, well-developed, well-nourished Head exam: PRESENT: atraumatic, normocephalic Eye exam: PRESENT: conjunctiva pink, EOMI, PERRLA. ABSENT: scleral icterus Ear exam: PRESENT: normal external ear exam Mouth exam: PRESENT: moist, tongue midline Teeth exam: PRESENT: edentulous Neck exam: ABSENT: carotid bruit, JVD, lymphadenopathy, thyromegaly Respiratory exam: PRESENT: clear to auscultation melonie. ABSENT: rales, rhonchi, wheezes Cardiovascular exam: PRESENT: RRR. ABSENT: diastolic murmur, rubs, systolic murmur Pulses: PRESENT: normal dorsalis pedis pul Vascular exam: PRESENT: normal capillary refill GI/Abdominal exam: PRESENT: normal bowel sounds, soft. ABSENT: distended, guarding, mass, organolmegaly, rebound, tenderness Rectal exam: PRESENT: deferred Extremities exam: PRESENT: full ROM, other - Right BKA stump wrapped in Hugo wrap. ABSENT: calf tenderness, clubbing, pedal edema Musculoskeletal exam: PRESENT: ambulatory, full ROM, tenderness - Right BKA stump Neurological exam: PRESENT: alert, awake, oriented to person, oriented to place, oriented to time, oriented to situation, CN II-XII grossly intact. ABSENT: motor sensory deficit Psychiatric exam: PRESENT: appropriate affect, normal mood. ABSENT: homicidal ideation, suicidal ideation Skin exam: PRESENT: dry, intact, warm. ABSENT: cyanosis, rash Results Laboratory Results: 04/05/19 06:46 04/05/19 06:46 04/05/19 04/05/19 06:46 06:46 WBC 12.0 H RBC 3.17 L Hgb 8.3 L Hct 24.9 L MCV 79 L MCH 26.1 L MCHC 33.1 RDW 15.4 H Plt Count 675 H Seg Neutrophils % 77.1 Lymphocytes % 12.2 L Monocytes % 5.3 Eosinophils % 4.7 Basophils % 0.7 Absolute Neutrophils 9.2 H Absolute Lymphocytes 1.5 Absolute Monocytes 0.6 Absolute Eosinophils 0.6 Absolute Basophils 0.1 Sodium 137.5 Potassium 4.7 Chloride 103 Carbon Dioxide 28 Anion Gap 7 BUN 12 Creatinine 0.96 Est GFR ( Amer) > 60 Est GFR (Non-Af Amer) > 60 Glucose 123 H Calcium 7.7 L Magnesium 2.1 Total Bilirubin < 0.1 L AST 37 ALT 37 Alkaline Phosphatase 79 Total Protein 6.0 L Albumin 2.5 L 03/31/19 21:04 Foot - Right Gram Stain - Final 03/31/19 21:04 Foot - Right Wound Culture - Final Providencia Rettgeri Enterococcus Avium Group B Beta Streptococcus Impressions: Foot X-Ray 03/31/19 18:25 IMPRESSION: Status post forefoot amputation. Given heterogeneous mineralization and indistinct distal margins of the tarsal bone remnants in the setting of adjacent soft tissue infection, findings are worrisome for osseous extension/osteomyelitis. Tibia/Fibula X-Ray 03/31/19 18:25 IMPRESSION: NEGATIVE STUDY OF THE RIGHT TIBIA AND FIBULA. NO RADIOGRAPHIC EVIDENCE OF ACUTE INJURY. KUB X-Ray 04/02/19 00:00 IMPRESSION: Nonspecific abdomen. Assessment and Plan - Diagnosis (1) Status post below knee amputation of right lower extremity Is this a current diagnosis for this admission?: Yes Plan: Postop day #4 he is increasing his activity with physical therapy. We need to transition him to oral pain medication and off IV Dilaudid. He is agreeable to home health therapy [facility] and physical therapy (2) Essential hypertension Is this a current diagnosis for this admission?: Yes Plan: Patient will be continued on his usual medications for hypertension and his blood pressure will be observed closely throughout his hospital stay. Continue lisinopril 20 mg p.o. daily (3) Hyponatremia Is this a current diagnosis for this admission?: Yes (4) Osteomyelitis of foot, right, acute Is this a current diagnosis for this admission?: Yes Plan: Resolved. He is BKA (5) Tobacco use disorder, severe, dependence Is this a current diagnosis for this admission?: Yes Plan: Counseled. - Time Time Spent with patient: 25-34 minutes Total Critical Time (Minutes): 20 Medications reviewed and adjusted accordingly: Yes Anticipated discharge: Home with Homehealth Within: within 24 hours - Inpatient Certification Based on my medical assessment, after consideration of the patient's comorbidities, presenting symptoms, or acuity I expect that the services needed warrant INPATIENT care.: Yes I certify that my determination is in accordance with my understanding of Medicare's requirements for reasonable and necessary INPATIENT services [42 CFR 412.3e].: Yes Medical Necessity: Need for Pain Control, Need for IV Antibiotics, Need for Surgery
--- NOTE | 2019-04-06 11:53 | PDOC DISCHARGE SUMMARY ---
General - Admit/Disc Date/PCP Admission Date/Primary Care Provider: 03/31/19 21:37 ALHAJI DEVINE MD Discharge Date: 04/06/19 - Discharge Diagnosis (1) Status post below knee amputation of right lower extremity Is this a current diagnosis for this admission?: Yes (2) Essential hypertension Is this a current diagnosis for this admission?: Yes (3) Hyponatremia Is this a current diagnosis for this admission?: Yes (4) Osteomyelitis of foot, right, acute Is this a current diagnosis for this admission?: Yes (5) Tobacco use disorder, severe, dependence Is this a current diagnosis for this admission?: Yes - Additional Information Resuscitation Status: Full Code Discharge Diet: Diabetic Discharge Activity: Activity As Tolerated, Balance Activity w/Rest, No Driving Prescriptions: Oxycodone HCl [Oxycodone HCl 10 MG Tablet] 10 mg PO Q6HP PRN #20 tablet PRN Reason: Lisinopril [Prinivil] 20 mg PO DAILY #30 tablet Ondansetron HCl [Zofran 4 mg Tablet] 1 tab PO Q4H PRN #20 tablet PRN Reason: Home Medications: Acetaminophen [Tylenol 325 mg Tablet] 650 mg PO Q4HP PRN tablet 04/06/19 Lisinopril [Prinivil] 20 mg PO DAILY #30 tablet 04/06/19 Ondansetron HCl [Zofran 4 mg Tablet] 1 tab PO Q4H PRN #20 tablet 04/06/19 Oxycodone HCl [Oxycodone HCl 10 MG Tablet] 10 mg PO Q6HP PRN #20 tablet 04/06/19 History of Present Illness Patient complains of: Right foot pain History of Present Illness: ANIYAH ARRIAGA is a 63 year old male who presents the emergency room with a 10-day history of right foot pain. 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 He has not been compliant with receiving care at the wound clinic and recently has been "taking care of his foot by himself at home". He admits that over the last several months he is been having gradually worsening pain but approximately 10 days ago he developed severe pain in his right foot. He describes the pain as a constant, severe, sharp stabbing in the end of the transmetatarsal stump of his right foot. The pain is worsened by weightbearing, does not radiate and has not responded to ibuprofen or acetaminophen. He further relates that a piece of bone fell out of his foot wound earlier today. He admits prior similar problems with his left foot that resulted in an amputation of his left great toe. He has not identified any other aggravating or ameliorating factors for his right foot pain. In the emergency room he was found to have a leukocytosis, radiographic changes consistent with osteomyelitis of the right foot and obvious gangrene of the right foot on visual inspection. Dr. Mauro was notified about the patient and insisted that the hospital service should admit this patient because he has diabetes, hypertension and some mild electrolyte abnormalities. Patient was subsequently admitted to the hospital for further evaluation and treatment. Hospital Course Hospital Course: She was admitted to the hospitalist service. He was started on IV broad- spectrum antibiotics after blood cultures x2 were obtained. General surgery was consulted for wound management of his right foot. Dr. Vasquez, general surgeon, saw the patient in consult. He was taken to the operating room on 04/02/2019, by Dr. Vasquez for right BKA. He tolerated the procedure well and was returned to the medical floor in stable condition. He was started with physical therapy the following day. He slowly increase his activity levels. He was able to transition to oral pain medication for pain relief. Blood cultures x2 remain negative. Antibiotics were discontinued. He was able to increase his activity slowly and pain improved. He has been cleared by surgery for discharge. Patient has declined the need for short-term rehab. He he has opted instead to go home with home health physical therapy and nursing care. We reinforced the need for him to be compliant with medications as well is postop treatment. He has a history of medical noncompliance in the past. He has not filled any prescriptions for hypertension or his diabetes in the last 1 year. He was restarted on lisinopril 20 mg daily for blood pressure. He was covered with sliding scale insulin while in the hospital. He only had one reading that required any insulin therapy. He will follow-up with Dr. Santillan regarding his medical management of his hypertension and diabetes. He was discharged home with family in good condition Physical Exam Vital Signs: Temp Pulse Resp BP Pulse Ox 98.2 F 81 20 188/90 H 100 04/06/19 11:00 04/06/19 11:00 04/06/19 11:00 04/06/19 11:00 04/06/19 11:00 Intake & Output 04/05/19 04/06/19 04/07/19 06:59 06:59 06:59 Intake Total 300 440 Output Total 400 Balance -100 440 Weight 73.618 kg General appearance: PRESENT: no acute distress, thin, well-developed, well- nourished Head exam: PRESENT: atraumatic, normocephalic Eye exam: PRESENT: conjunctiva pink, EOMI, PERRLA. ABSENT: scleral icterus Ear exam: PRESENT: normal external ear exam Mouth exam: PRESENT: moist, tongue midline Teeth exam: PRESENT: edentulous Neck exam: ABSENT: carotid bruit, JVD, lymphadenopathy, thyromegaly Respiratory exam: PRESENT: clear to auscultation melonie. ABSENT: rales, rhonchi, wheezes Cardiovascular exam: PRESENT: RRR. ABSENT: diastolic murmur, rubs, systolic murmur Pulses: PRESENT: normal dorsalis pedis pul Vascular exam: PRESENT: normal capillary refill GI/Abdominal exam: PRESENT: normal bowel sounds, soft. ABSENT: distended, gu arding, mass, organolmegaly, rebound, tenderness Rectal exam: PRESENT: deferred Extremities exam: PRESENT: full ROM - Right BKA stump, tenderness Musculoskeletal exam: PRESENT: ambulatory, full ROM, tenderness - Right BKA vivi mp Neurological exam: PRESENT: alert, awake, oriented to person, oriented to place, oriented to time, oriented to situation, CN II-XII grossly intact. ABSENT: motor sensory deficit Psychiatric exam: PRESENT: appropriate affect, normal mood. ABSENT: homicidal ideation, suicidal ideation Skin exam: PRESENT: dry, intact, warm. ABSENT: cyanosis, rash Results Laboratory Results: 04/05/19 06:46 04/05/19 06:46 03/31/19 19:30 Blood Blood Culture - Final NO GROWTH IN 5 DAYS 03/31/19 18:37 Blood Blood Culture - Final NO GROWTH IN 5 DAYS Impressions: Foot X-Ray 03/31/19 18:25 IMPRESSION: Status post forefoot amputation. Given heterogeneous mineralization and indistinct distal margins of the tarsal bone remnants in the setting of adjacent soft tissue infection, findings are worrisome for osseous extension/osteomyelitis. Tibia/Fibula X-Ray 03/31/19 18:25 IMPRESSION: NEGATIVE STUDY OF THE RIGHT TIBIA AND FIBULA. NO RADIOGRAPHIC EVIDENCE OF ACUTE INJURY. KUB X-Ray 04/02/19 00:00 IMPRESSION: Nonspecific abdomen. Qualifiers - * PATIENT BEING DISCHARGED WITH ANY OF THE FOLLOWING DIAGNOSIS: No Acute Heart Failure - Is this a Heart Failure Patient?: No Plan Discharge Plan: Follow-up with Dr. Barrett in 7 to 10 days Follow-up with Dr. Devine in 1 to 2 weeks Time Spent: Less than 30 Minutes
[2019-04-06 12:50] VITALS: BP 158/79
== END 2019-04-06 13:30 | disposition home or self-care (01) | DRG 475 ==
LOC: ER 17:49 → EH 21:37 → 2N 23:06
PROVIDERS: ADMIT Emergency Medicine; ATTEND Emergency Medicine
PROC: 30233N1 Transfusion of Nonautologous Red Blood Cells into Peripheral Vein, Percutaneous Approach (ICD-10-PCS; 2019-04-01)
PROC: 0Y6H0Z3 Detachment at Right Lower Leg, Low, Open Approach (ICD-10-PCS; principal; 2019-04-01 17:00)
DX: T87.43 Infection of amputation stump, right lower extremity (principal); E11.52 Type 2 diabetes mellitus with diabetic peripheral angiopathy with gangrene; I96 Gangrene, not elsewhere classified; M86.171 Other acute osteomyelitis, right ankle and foot; E87.1 Hypo-osmolality and hyponatremia; E11.69 Type 2 diabetes mellitus with other specified complication; I10 Essential (primary) hypertension; E78.5 Hyperlipidemia, unspecified; F17.210 Nicotine dependence, cigarettes, uncomplicated; K21.9 Gastro-esophageal reflux disease without esophagitis; D47.3 Essential (hemorrhagic) thrombocythemia; B95.1 Streptococcus, group B, as the cause of diseases classified elsewhere; E78.00 Pure hypercholesterolemia, unspecified; Z60.2 Problems related to living alone; Z79.4 Long term (current) use of insulin; Z79.899 Other long term (current) drug therapy; Z89.412 Acquired absence of left great toe; Z83.3 Family history of diabetes mellitus; Z82.49 Family history of ischemic heart disease and other diseases of the circulatory system
CPT/HCPCS: 01482; 36415; 36430; 74018; 80048; 80053; 80061; 80202; 82962; 83036; 83605; 83735; 84439; 84443; 84481; 85025; 85027; 85652; 86140; 86850; 86900; 86901; 86920; 87040; 87070; 87077; 87186; 87205; 88307; 88311; 93005; 93010; 96361; 96365; 96375; 99284; J0360; J1170; J1644; J1815; J1885; J2250; J2270; J2405; J2543; J2550; J2704; J3010; J3370; J3490; J7030; J7050; J7060; L1830; P9016

== ENCOUNTER 2019-04-07 14:33 | Inpatient (IN) | payer MEDICARE, MEDICAID ==
[2019-04-07] MEDS ORDERED: KETOROLAC TROMETHAMINE INJ/PF 30 MG/1 ML SDV IV PRN (14:48)
[2019-04-07] MEDS ORDERED: CEFAZOLIN 1 GM/D5W RTU 1 GM/50 ML RTUPB IV ONE (14:59)
[2019-04-07] MEDS ORDERED: HYDROMORPHONE HCL INJ/PF 2 MG/ML AMPULE IV ONE (15:05)
--- NOTE | 2019-04-07 15:09 | ER Document Report ---
ED General - General Chief Complaint: Wound Recheck Stated Complaint: WOUND CHECK Time Seen by Provider: 04/07/19 14:44 Mode of Arrival: Medic Information source: Patient, Emergency Med Personnel, [facility] Records Notes: 62-year-old male with hypertension, hyperlipidemia, type 2 diabetes, osteomyel itis with a recent BKA on April 01, 2019 presents via EMS after a fall at home and dehiscence of his wound. Patient states that he was trying to transfer when he fell causing the bandage to rip off and the wound to open. Patient was discharged yesterday from [facility]. He denies any head injury, loss of consciousness. Patient's last meal was 2 hours prior to arrival. TRAVEL OUTSIDE OF THE [place] IN LAST 30 DAYS: No - HPI Onset: Just prior to arrival Onset/Duration: Sudden Quality of pain: Throbbing Severity: Moderate Pain Level: 2 Associated symptoms: denies: Chest pain, Chills, Fever, Nausea, Vomiting, Shortness of breath Exacerbated by: Denies Relieved by: Denies Similar symptoms previously: No Recently seen / treated by doctor: Yes - Related Data Allergies/Adverse Reactions: No Known Allergies Allergy (Verified 04/07/19 14:38) Past Medical History - General Information source: Patient, [facility] Records - Social History Smoking Status: Former Smoker Chew tobacco use (# tins/day): No Frequency of alcohol use: None Drug Abuse: None Lives with: Alone Family History: DM, Hypertension Patient has suicidal ideation: No Patient has homicidal ideation: No - Past Medical History Cardiac Medical History: Reports: Hx Hypercholesterolemia, Hx Hypertension - medicated Denies: Hx Coronary Artery Disease, Hx Heart Attack Pulmonary Medical History: Denies: Hx Asthma, Hx COPD, Hx Tuberculosis Neurological Medical History: Denies: Hx Cerebrovascular Accident, Hx Seizures Endocrine Medical History: Reports: Hx Diabetes Mellitus Type 2. Denies: Hx Diabetes Mellitus Type 1, Hx Hyperthyroidism, Hx Hypothyroidism Renal/ Medical History: Denies: Hx Peritoneal Dialysis GI Medical History: Reports: Hx Gastroesophageal Reflux Disease. Denies: Hx Cirrhosis, Hx Crohn's Disease, Hx Hepatitis, Hx Hiatal Hernia, Hx Ulcer, Hx Ulcerative Colitis Musculoskeletal Medical History: Denies Hx Arthritis, Denies Hx Fibromyalgia, Denies Hx Gout Skin Medical History: Denies Hx Eczema, Denies Hx Psoriasis Infectious Medical History: Denies: Hx Hepatitis Past Surgical History: Reports: Hx Cholecystectomy, Hx Orthopedic Surgery - Right transmetatarsal amputation, left great toe amputation. Denies: Hx Open Heart Surgery, Hx Pacemaker - Immunizations Hx Diphtheria, Pertussis, Tetanus Vaccination: Yes Hx Pneumococcal Vaccination: 04/05/11 Review of Systems - Review of Systems Notes: REVIEW OF SYSTEMS: CONSTITUTIONAL : Denies fever, chills, or sweats. Denies recent illness. Denies weight loss, recent hospitalizations. EENT: Denies visual changes, eye pain. Denies sore throat, oral lesions, difficulty swallowing. CARDIOVASCULAR: Denies chest pain. Denies palpitations. Denies lower extremity edema. RESPIRATORY: Denies cough. Denies shortness of breath, wheezing. GASTROINTESTINAL: Denies abdominal pain or distention. Denies nausea, vomiting, or diarrhea. Denies blood in vomitus, stools, or per rectum. Denies black, tarry stools. Denies constipation. GENITOURINARY: Denies difficulty urinating, painful urination, frequency, blood in urine, testicular pain or penile discharge. MUSCULOSKELETAL: Denies back or neck pain or stiffness. Denies joint pain or swelling. SKIN: + Dehiscence of surgical wound of the right lower extremity HEMATOLOGIC : Denies easy bruising or bleeding. LYMPHATIC: Denies swollen glands. NEUROLOGICAL: Denies confusion or altered mental status. Denies loss of consciousness. Denies dizziness or lightheadedness. Denies headache. Denies weakness or paralysis. Denies problems difficulty with ambulation, slurred s peech. Denies sensory loss, numbness, or tingling. Denies seizures. PSYCHIATRIC: Denies anxiety or stress. Denies depression, suicidal ideation, or Physical Exam - Vital signs Vitals: Temp Pulse Resp BP Pulse Ox 98.6 F 77 18 171/92 H 100 04/07/19 14:38 04/07/19 14:38 04/07/19 14:38 04/07/19 14:38 04/07/19 14:38 - Notes Notes: PHYSICAL EXAMINATION: GENERAL: Well-appearing, well-nourished and in no acute distress. HEAD: Atraumatic, normocephalic. EYES: Pupils equal round and reactive to light, extraocular movements intact, sclera anicteric, conjunctiva are normal. ENT: Nares patent, oropharynx clear without exudates. Moist mucous membranes. NECK: Normal range of motion, supple without lymphadenopathy LUNGS: Breath sounds clear to auscultation bilaterally and equal. No wheezes rales or rhonchi. HEART: Regular rate and rhythm without murmurs ABDOMEN: Soft, nontender, nondistended abdomen. No guarding, no rebound. No masses appreciated. Musculoskeletal: Normal range of motion, no pitting or edema. No cyanosis. Right lower extremity with complete dehiscence of BKA postop wound. Mild oozing of blood. NEUROLOGICAL: Cranial nerves grossly intact. Normal speech, normal gait. Normal sensory, motor exams. PSYCH: Normal mood, normal affect. SKIN: Warm, Dry, normal turgor, no rashes or lesions noted. Course - Re-evaluation Re-evalutation: Laboratory 04/07/19 04/07/19 04/07/19 15:05 15:05 15:05 WBC 11.2 H RBC 3.41 L Hgb 8.9 L Hct 26.8 L MCV 79 L MCH 26.2 L MCHC 33.3 RDW 15.9 H Plt Count 945 H Seg Neutrophils % 74.1 Lymphocytes % 16.3 Monocytes % 6.5 Eosinophils % 2.3 Basophils % 0.8 Absolute Neutrophils 8.3 H Absolute Lymphocytes 1.8 Absolute Monocytes 0.7 Absolute Eosinophils 0.3 Absolute Basophils 0.1 PT 15.1 INR 1.18 APTT 35.8 Sodium 137.4 Potassium 4.4 Chloride 103 Carbon Dioxide 26 Anion Gap 8 BUN 15 Creatinine 1.00 Est GFR ( Amer) > 60 Est GFR (Non-Af Amer) > 60 Glucose 121 H Calcium 8.9 Blood Type Antibody Screen 04/07/19 15:05 WBC RBC Hgb Hct MCV MCH MCHC RDW Plt Count Seg Neutrophils % Lymphocytes % Monocytes % Eosinophils % Basophils % Absolute Neutrophils Absolute Lymphocytes Absolute Monocytes Absolute Eosinophils Absolute Basophils PT INR APTT Sodium Potassium Chloride Carbon Dioxide Anion Gap BUN Creatinine Est GFR ( Amer) Est GFR (Non-Af Amer) Glucose Calcium Blood Type A POSITIVE Antibody Screen NEGATIVE Temp Pulse Resp BP Pulse Ox 97.1 F 71 18 176/93 H 96 04/07/19 18:38 04/07/19 18:38 04/07/19 18:38 04/07/19 18:38 04/07/19 18:38 04/07/19 15:12 63-year-old male presents via EMS after falling and ripping open his wound from his recent BKA performed on April 01, 2019. Wound is completely dehisced. I did speak to Dr. Anton who recommends basic labs, Ancef and wet packing. Patient will be admitted to medicine. Patient's last meal was 2 hours prior to arrival. Patient did receive fentanyl from EMS and 0.5 mg of Dilaudid in the emergency department. Dr. Anton is at the bedside and states the patient will go to the operating room at 1630. Medicine has agreed to admit the patient due to his complex medical history. Patient was admitted by Dr. Sommers to the medicine floor. 04/07/19 21:58 - Vital Signs Vital signs: Temp Pulse Resp BP Pulse Ox 97.1 F 71 18 176/93 H 96 04/07/19 18:38 04/07/19 18:38 04/07/19 18:38 04/07/19 18:38 04/07/19 18:38 - Laboratory Result Diagrams: 04/07/19 15:05 04/07/19 15:05 Laboratory results interpreted by me: 04/07/19 04/07/19 15:05 15:05 WBC 11.2 H RBC 3.41 L Hgb 8.9 L Hct 26.8 L MCV 79 L MCH 26.2 L RDW 15.9 H Plt Count 945 H Absolute Neutrophils 8.3 H Glucose 121 H Discharge - Discharge Clinical Impression: History of osteomyelitis Hypertension Qualifiers: Hypertension type: essential hypertension Qualified Code(s): I10 - Essential (primary) hypertension Diabetes Qualifiers: Diabetes mellitus type: type 2 Diabetes mellitus correction insulin use: unspecified correction insulin use status Diabetes mellitus complication status: with circulatory complication Diabetes mellitus complication detail: with peripheral angiopathy without gangrene Qualified Code(s): E11.51 - Type 2 diabetes mellitus with diabetic peripheral angiopathy without gangrene Wound dehiscence, surgical Qualifiers: Encounter type: initial encounter Qualified Code(s): T81.31XA - Disruption of external operation (surgical) wound, not elsewhere classified, initial encounter Condition: Good Disposition: ADMITTED INPATIENT Admitting Provider: Erick (Hospitalist) Unit Admitted: Medical Floor
[2019-04-07 15:24] LABS: ABSOLUTE BASOPHILS # (AUTO) 0.1 10^3/uL (0.0-0.2); ABSOLUTE EOSINOPHILS # (AUTO) 0.3 10^3/uL (0.0-0.6); ABSOLUTE LYMPHOCYTES (AUTO) 1.8 10^3/uL (0.5-4.7); ABSOLUTE MONOCYTES (AUTO) 0.7 10^3/uL (0.1-1.4); ABSOLUTE NEUT (AUTO) 8.3 10^3/uL (1.7-8.2); BASOPHILS % (AUTO) 0.8 % (0-2); EOSINOPHILS % (AUTO) 2.3 % (0-6); HEMATOCRIT 26.8 % (37.9-51.0); HEMOGLOBIN 8.9 g/dL (13.5-17.0); LYMPHOCYTES % (AUTO) 16.3 % (13-45); MEAN CORPUSCULAR HEMOGLOBIN 26.2 pg (27.0-33.4); MEAN CORPUSCULAR HGB CONC 33.3 g/dL (32.0-36.0); MEAN CORPUSCULAR VOLUME 79 fl (80-97); MONOCYTES % (AUTO) 6.5 % (3-13); PLATELET COUNT 945 10^3/uL (150-450); RED BLOOD COUNT 3.41 10^6/uL (4.35-5.55); RED CELL DISTRIBUTION WIDTH 15.9 % (11.5-14.0); SEGMENTED NEUTROPHILS % (AUTO) 74.1 % (42-78); TOTAL CELLS COUNTED % (AUTO) 100 %; WHITE BLOOD COUNT 11.2 10^3/uL (4.0-10.5)
[2019-04-07 15:33] LABS: INTERNATIONAL RATION (INR) 1.18; PROTHROMBIN TIME 15.1 SEC (11.4-15.4)
[2019-04-07 15:34] LABS: PARTIAL THROMBOPLASTIN TIME 35.8 SEC (23.5-35.8)
[2019-04-07] MEDS ORDERED: IPRATROPIUM/ALBUTEROL 0.5-2.5 MG/3 ML AMPUL NEB PRN (15:38)
--- NOTE | 2019-04-07 15:38 | PDOC H&P ---
History of Present Illness History of Present Illness: ANIYAH ARRIAGA is a 63 year old male patient with past medical history of uncontrolled hypertension, type 2 diabetes mellitus, hyperlipidemia, tobacco and alcohol dependence presented with chief complaint of wound dehiscence. 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 Patient states that he was trying to transfer from his wheelchair to bed when he fell to one side causing Z hunting down but did to rip off and the wound to open. Patient denies any loss of consciousness, nausea, vomiting or any seizure activity. Past Medical History Cardiac Medical History: Reports: Hyperlipidema, Hypertension - medicated Denies: Coronary Artery Disease, Myocardial Infarction Pulmonary Medical History: Denies: Asthma, Chronic Obstructive Pulmonary Disease (COPD), Tuberculosis Neurological Medical History: Denies: Seizures Endocrine Medical History: Reports: Diabetes Mellitus Type 2 Denies: Diabetes Mellitus Type 1, Hyperthyroidism, Hypothyroidism GI Medical History: Reports: Gastroesophageal Reflux Disease Denies: Cirrhosis, Crohn's Disease, Hepatitis, Hiatal Hernia, Ulcerative Colitis Musculoskeltal Medical History: Denies: Arthritis, Fibromyalgia, Gout Skin Medical History: Denies: Eczema, Psoriasis Hematology: Denies: Anemia, Sickle Cell Disease, Bleeding Tendencies Past Surgical History Past Surgical History: Reports: Cholecystectomy, Orthopedic Surgery - Right transmetatarsal amputation, left great toe amputation Denies: Pacemaker Social History Lives with: Alone Smoking Status: Former Smoker Frequency of Alcohol Use: None Hx Recreational Drug Use: Yes Drugs: Marijuana Hx Prescription Drug Abuse: No - Advance Directive Resuscitation Status: Full Code Family History Family History: DM, Hypertension Parental Family History Reviewed: Yes Children Family History Reviewed: Yes Sibling(s) Family History Reviewed.: Yes Medication/Allergy Home Medications: Acetaminophen [Tylenol 325 mg Tablet] 650 mg PO Q4HP PRN tablet 04/06/19 Lisinopril [Prinivil] 20 mg PO DAILY #30 tablet 04/06/19 Ondansetron HCl [Zofran 4 mg Tablet] 1 tab PO Q4H PRN #20 tablet 04/06/19 Oxycodone HCl [Oxycodone HCl 10 MG Tablet] 10 mg PO Q6HP PRN #20 tablet 04/06/19 Allergies/Adverse Reactions: No Known Allergies Allergy (Verified 04/07/19 14:38) Review of Systems Constitutional: ABSENT: chills, fever(s), headache(s), weight gain, weight loss Eyes: ABSENT: visual disturbances Ears: ABSENT: hearing changes Cardiovascular: ABSENT: chest pain, dyspnea on exertion, edema, orthropnea, palpitations Respiratory: ABSENT: cough, hemoptysis Gastrointestinal: ABSENT: abdominal pain, constipation, diarrhea, hematemesis, hematochezia, nausea, vomiting Genitourinary: ABSENT: dysuria, hematuria Musculoskeletal: PRESENT: other - Wound dehiscence Integumentary: ABSENT: rash, wounds Neurological: ABSENT: abnormal gait, abnormal speech, confusion, dizziness, focal weakness, syncope Psychiatric: ABSENT: anxiety, depression, homidical ideation, suicidal ideation Endocrine: ABSENT: cold intolerance, heat intolerance, polydipsia, polyuria Hematologic/Lymphatic: ABSENT: easy bleeding, easy bruising Physical Exam Vital Signs: Temp Pulse Resp BP Pulse Ox 98.6 F 77 18 171/92 H 100 04/07/19 14:38 04/07/19 14:38 04/07/19 14:38 04/07/19 14:38 04/07/19 14:38 Intake & Output 04/06/19 04/07/19 04/08/19 06:59 06:59 06:59 Weight 83.915 kg General appearance: ABSENT: cooperative, disheveled, hard of hearing, mild distress, morbidly obese, obese, severe distress, thin, other Head exam: PRESENT: atraumatic, normocephalic Eye exam: PRESENT: conjunctiva pink, EOMI, PERRLA. ABSENT: scleral icterus Ear exam: PRESENT: normal external ear exam Mouth exam: PRESENT: moist, tongue midline Neck exam: ABSENT: carotid bruit, JVD, lymphadenopathy, thyromegaly Respiratory exam: PRESENT: clear to auscultation melonie. ABSENT: rales, rhonchi, wheezes Cardiovascular exam: PRESENT: RRR. ABSENT: diastolic murmur, rubs, systolic murmur Pulses: PRESENT: normal dorsalis pedis pul Vascular exam: PRESENT: normal capillary refill GI/Abdominal exam: PRESENT: normal bowel sounds, soft. ABSENT: distended, guarding, mass, organolmegaly, rebound, tenderness Rectal exam: PRESENT: deferred Extremities exam: PRESENT: full ROM, other - Wound dehiscence of right BKA with superficial bleeding. ABSENT: calf tenderness, clubbing, pedal edema Neurological exam: PRESENT: alert, awake, oriented to person, oriented to place, oriented to time, oriented to situation, CN II-XII grossly intact. ABSENT: motor sensory deficit Psychiatric exam: PRESENT: appropriate affect, normal mood. ABSENT: homicidal ideation, suicidal ideation Skin exam: PRESENT: dry, intact, warm. ABSENT: cyanosis, rash Results Laboratory Results: 04/07/19 15:05 04/07/19 15:05 WBC 11.2 H RBC 3.41 L Hgb 8.9 L Hct 26.8 L MCV 79 L MCH 26.2 L MCHC 33.3 RDW 15.9 H Plt Count 945 H Seg Neutrophils % 74.1 Lymphocytes % 16.3 Monocytes % 6.5 Eosinophils % 2.3 Basophils % 0.8 Absolute Neutrophils 8.3 H Absolute Lymphocytes 1.8 Absolute Monocytes 0.7 Absolute Eosinophils 0.3 Absolute Basophils 0.1 Assessment and Plan - Diagnosis (1) Right BKA wound dehiscence Is this a current diagnosis for this admission?: Yes Plan: Definitive management per surgical team (2) Type 2 diabetes mellitus Is this a current diagnosis for this admission?: Yes Plan: We will put him on sliding scale (3) Hypertension Qualifiers: Hypertension type: essential hypertension Qualified Code(s): I10 - Essential (primary) hypertension Is this a current diagnosis for this admission?: Yes Plan: Continue home medication (4) Hyperlipidemia Qualifiers: Hyperlipidemia type: unspecified Qualified Code(s): E78.5 - Hyperlipidemia, unspecified Is this a current diagnosis for this admission?: Yes Plan: Continue home medication
[2019-04-07 15:40] LABS: ANION GAP 8 (5-19); BLOOD UREA NITROGEN 15 mg/dL (7-20); CALCIUM 8.9 mg/dL (8.4-10.2); CARBON DIOXIDE 26 mmol/L (22-30); CHLORIDE 103 mmol/L (98-107); GLUCOSE 121 mg/dL (75-110); POTASSIUM 4.4 mmol/L (3.6-5.0)
--- NOTE | 2019-04-07 16:17 | PDOC CONSULTATION ---
Consultation Consult Date: 04/07/19 Attending physician:: AARON MORRIS Provider Consulted: MAYELIN ACUNA Consult reason:: Filleted open right BKA stump History of Present Illness Admission Date/PCP: 04/07/19 16:06 ALHAJI VILLALBA MD Patient complains of: Traumatic opening of right BKA stump History of Present Illness: ANIYAH ARRIAGA is a 63 year old male Presents to the emergent via ground rescue complaining of falling, and busting his right BKA stump wide open. Patient underwent right BKA by Dr. Juan J Vasquez 5 days ago for osteomyelitis of the right transmetatarsal amputation site. She is seen in the emergency department where he was found to have a completely opened operative BKA stump. Surgery was consulted, patient was advised admission for stump closure. Patient is uncertain as to his last tetanus shot. He last ate an apple 2 hours prior to admission Past Medical History Cardiac Medical History: Reports: Hyperlipidema, Hypertension - medicated Denies: Coronary Artery Disease, Myocardial Infarction Pulmonary Medical History: Denies: Asthma, Chronic Obstructive Pulmonary Disease (COPD), Tuberculosis Neurological Medical History: Denies: Seizures Endocrine Medical History: Reports: Diabetes Mellitus Type 2 Denies: Diabetes Mellitus Type 1, Hyperthyroidism, Hypothyroidism GI Medical History: Reports: Gastroesophageal Reflux Disease Denies: Cirrhosis, Crohn's Disease, Hepatitis, Hiatal Hernia, Ulcerative Colitis Musculoskeltal Medical History: Denies: Arthritis, Fibromyalgia, Gout Skin Medical History: Denies: Eczema, Psoriasis Hematology: Denies: Anemia, Sickle Cell Disease, Bleeding Tendencies Past Surgical History Past Surgical History: Left great toe amputation; right transmetatarsal amputation; right below the knee amputation Past Surgical History: Reports: Cholecystectomy, Orthopedic Surgery - Right transmetatarsal amputation, left great toe amputation Denies: Pacemaker Social History Lives with: Alone Smoking Status: Former Smoker Frequency of Alcohol Use: None Hx Recreational Drug Use: Yes Drugs: Marijuana Hx Prescription Drug Abuse: No - Advance Directive Resuscitation Status: Full Code Family History Family History: DM, Hypertension Parental Family History Reviewed: Yes Children Family History Reviewed: Yes Sibling(s) Family History Reviewed.: Yes Medication/Allergy Home Medications: Acetaminophen [Tylenol 325 mg Tablet] 650 mg PO Q4HP PRN tablet 04/06/19 Lisinopril [Prinivil] 20 mg PO DAILY #30 tablet 04/06/19 Ondansetron HCl [Zofran 4 mg Tablet] 1 tab PO Q4H PRN #20 tablet 04/06/19 Oxycodone HCl [Oxycodone HCl 10 MG Tablet] 10 mg PO Q6HP PRN #20 tablet 04/06/19 Allergies/Adverse Reactions: No Known Allergies Allergy (Verified 04/07/19 14:38) Review of Systems Constitutional: PRESENT: as per HPI Eyes: ABSENT: visual disturbances Ears: ABSENT: hearing changes Cardiovascular: ABSENT: chest pain, dyspnea on exertion, edema, orthropnea, palpitations Respiratory: ABSENT: cough, hemoptysis Gastrointestinal: ABSENT: abdominal pain, constipation, diarrhea, hematemesis, hematochezia, nausea, vomiting Genitourinary: ABSENT: dysuria, hematuria Musculoskeletal: PRESENT: as per HPI Neurological: PRESENT: other - Peripheral neuropathy, chronic Psychiatric: PRESENT: anxiety Physical Exam Vital Signs: Temp Pulse Resp BP Pulse Ox 98.6 F 77 18 171/92 H 100 04/07/19 14:38 04/07/19 14:38 04/07/19 14:38 04/07/19 14:38 04/07/19 14:38 Intake & Output 04/06/19 04/07/19 04/08/19 06:59 06:59 06:59 Weight 83.915 kg General appearance: PRESENT: no acute distress Head exam: PRESENT: normocephalic Eye exam: PRESENT: EOMI Mouth exam: PRESENT: dry mucosa Neck exam: PRESENT: full ROM Respiratory exam: PRESENT: rales Cardiovascular exam: PRESENT: RRR Pulses: PRESENT: normal carotid pulses, normal radial pulses, normal femoral pulses, other - Left posterior tibial pulse GI/Abdominal exam: PRESENT: soft - Soft nontender no peritoneal signs no rigidity Rectal exam: PRESENT: deferred Gentrourinary exam: PRESENT: other - Right BKA stump wrapped currently. Dressing not removed. Left foot with chronic changes consistent with Charcot foot; operatively removed left great toe. Neurological exam: PRESENT: awake, oriented to person, oriented to place, oriented to time Results Laboratory Results: 04/07/19 15:05 04/07/19 15:05 04/07/19 04/07/19 04/07/19 15:05 15:05 15:05 WBC 11.2 H RBC 3.41 L Hgb 8.9 L Hct 26.8 L MCV 79 L MCH 26.2 L MCHC 33.3 RDW 15.9 H Plt Count 945 H Seg Neutrophils % 74.1 Lymphocytes % 16.3 Monocytes % 6.5 Eosinophils % 2.3 Basophils % 0.8 Absolute Neutrophils 8.3 H Absolute Lymphocytes 1.8 Absolute Monocytes 0.7 Absolute Eosinophils 0.3 Absolute Basophils 0.1 Sodium 137.4 Potassium 4.4 Chloride 103 Carbon Dioxide 26 Anion Gap 8 BUN 15 Creatinine 1.00 Est GFR ( Amer) > 60 Est GFR (Non-Af Amer) > 60 Glucose 121 H Calcium 8.9 Blood Type A POSITIVE Antibody Screen NEGATIVE Assessment & Plan - Diagnosis (1) Right BKA wound dehiscence Is this a current diagnosis for this admission?: Yes Plan: Impression: Completely filleted- open right BKA stump 5 days following operative closure by Dr. Juan J Vasquez. No evidence of hemorrhage Recommendations: 1. Patient admitted to the hospitalist service for comprehensive management 2. Patient IV antibiotics, tetanus; he needs to be taken to the operating room closure over drains. (2) Diabetes mellitus type 2 in nonobese Is this a current diagnosis for this admission?: Yes (3) Essential hypertension Is this a current diagnosis for this admission?: Yes (4) History of osteomyelitis Is this a current diagnosis for this admission?: Yes (5) Hypertension Qualifiers: Hypertension type: essential hypertension Qualified Code(s): I10 - Essential (primary) hypertension Is this a current diagnosis for this admission?: Yes (6) Tobacco use disorder, severe, dependence Is this a current diagnosis for this admission?: Yes - Time Time Spent: 50 to 70 Minutes Smoking Cessation Education: over 10 minutes Medications reviewed and adjusted accordingly: Yes Anticipated discharge: Home - Inpatient Certification Based on my medical assessment, after consideration of the patient's comorbidities, presenting symptoms, or acuity I expect that the services needed warrant INPATIENT care.: Yes I certify that my determination is in accordance with my understanding of Medicare's requirements for reasonable and necessary INPATIENT services [42 CFR 412.3e].: Yes Medical Necessity: Need For IV Fluids, Need for Pain Control, Need for IV Antibiotics, Need for Surgery
[2019-04-07] MEDS ORDERED: METOCLOPRAMIDE HCL INJ/PF 10 MG/2 ML SDV IV ONE (16:18)
[2019-04-07] MEDS ORDERED: ONDANSETRON HCL INJ/PF 4 MG/2 ML SDV IV ONE (16:19)
[2019-04-07] MEDS ORDERED: FAMOTIDINE INJ/PF 20 MG/2 ML SDV IV ONE (16:20)
[2019-04-07] MEDS ORDERED: MIDAZOLAM 2 MG/2 ML INJ ONE (16:31)
[2019-04-07] MEDS ORDERED: FENTANYL CITRATE INJ/PF 100 MCG/2 ML AMPUL ONE (16:31)
[2019-04-07] MEDS ORDERED: PROPOFOL INJ 200 MG/20 ML VIAL IV ONE (16:31)
[2019-04-07] MEDS ORDERED: CITRIC ACID/SODIUM CITRATE ORAL SOLN 15 ML UDCUP ONE (16:42)
[2019-04-07] MEDS ORDERED: BACITRACIN INJ 50,000 UNIT VIAL ONE (17:16)
[2019-04-07] MEDS ORDERED: CEFAZOLIN 2 GM/D5W RTU 2 GM/50 ML RTUPB IV SCH (18:00)
--- NOTE | 2019-04-07 18:12 | Operative Report ---
Operative Report DATE OF SURGERY: 04/07/19 PREOPERATIVE DIAGNOSIS: Complete dehiscence of right below the knee amputation site POSTOPERATIVE DIAGNOSIS: Same OPERATION: 1. Washout of open right below the knee amputation wound. 2. Placement of drains x2 right BKA stump. 3. primary closure of right BKA stump SURGEON: MAYELIN ACUNA ANESTHESIA: Spinal TISSUE REMOVED OR ALTERED: Clot COMPLICATIONS: None ESTIMATED BLOOD LOSS: 25 cc INTRAOPERATIVE FINDINGS: See below PROCEDURE: Patient was taken to the preop holding area to the main operating room where spinal anesthesia was induced. The right leg was exposed, dressing room, and the right dehisced below the knee amputation was prepped and draped in sterile fashion. Surgical plan and surgical timeout were conducted. Findings were significant for an open wound with no foul smell, contamination, or infected tissue. There were small areas of epidermal lysis, partial thickness, over the inferior skin flap medially. These were left in situ. The exposed muscle and bone was washed with 2 L of bacitracin saline solution. There was no evidence of muscle necrosis. Of note residual trevin removed from the skin, but there was no evidence of suture anywhere seen along the fascial closure consistent with the previous myodesis. We now approximated the ileus muscle old-fashioned up towards the anterior muscle group and pexed it into position with 2-0 Vicryl suture. We now completed the gastroc myodesis to the anterior tibial fascia with multiple interrupted 0 Vicryl sutures. The skin flaps were now closed with multiple interrupted 2-0 and 3-0 Ethilon sutures. Of note I did place 2 large Gaston drains, one the space between the inferior skin flap, and the gastroc muscle and this was brought out laterally below the knee. The second large Gaston drain was tucked into the deep muscle space, brought out through the lateral aspect of the leg below the knee. Drains were secured with 2-0 Prolene suture. At this point felt the operation was complete. Sponge and needle counts correct. Dressing applied with Xeroform 4 x 4's and Kerlix and Hugo wrap. Patient tolerated procedure well, taken recovery in stable condition.
[2019-04-07] MEDS ORDERED: (PENDING PHARMACY ID) (Lisinopril [Prinivil] 20 MG) PO SCH (19:00)
[2019-04-07] MEDS: NORMAL SALINE 1000 ML 1,000 ML IV PRN (19:18)
[2019-04-07] MEDS ORDERED: LISINOPRIL 10 MG TABLET PO ONE (19:45)
[2019-04-07] MEDS ORDERED: METOPROLOL TARTRATE 100 MG TABLET PO ONE (19:45)
[2019-04-07] MEDS: CEFAZOLIN SODIUM 2 GM in DEXTROSE 5%-WATER 100 ML IV SCH ×2 (20:02→23:36)
[2019-04-07] MEDS: OXYCODONE-ACETAMINOPHEN 5-325 MG TABLET PO PRN (20:09)
[2019-04-07] MEDS: DOCUSATE SODIUM 100 MG CAPSULE PO SCH (20:10)
[2019-04-07] MEDS: FAMOTIDINE 20 MG TABLET PO SCH (22:31)
[2019-04-07] MEDS: KETOROLAC TROMETHAMINE INJ/PF 30 MG/1 ML SDV IV PRN (23:36)
[2019-04-08] MEDS ORDERED: KETOROLAC TROMETHAMINE INJ/PF 30 MG/1 ML SDV IV SCH
[2019-04-08] MEDS: OXYCODONE-ACETAMINOPHEN 5-325 MG TABLET PO PRN ×4 (00:18→13:30)
--- NOTE | 2019-04-08 01:55 | EKG REPORT ---
SEVERITY:- BORDERLINE ECG - SINUS RHYTHM SHORT NM INTERVAL, ACCELERATED AV CONDUCTION : Confirmed by: Yale Grant MD 08-Apr-2019 01:54:29
[2019-04-08 05:42] LABS: ABSOLUTE BASOPHILS # (AUTO) 0.2 10^3/uL (0.0-0.2); ABSOLUTE EOSINOPHILS # (AUTO) 0.4 10^3/uL (0.0-0.6); ABSOLUTE LYMPHOCYTES (AUTO) 2.1 10^3/uL (0.5-4.7); ABSOLUTE MONOCYTES (AUTO) 1.3 10^3/uL (0.1-1.4); ABSOLUTE NEUT (AUTO) 9.1 10^3/uL (1.7-8.2); BASOPHILS % (AUTO) 1.3 % (0-2); HEMATOCRIT 22.5 % (37.9-51.0); LYMPHOCYTES % (AUTO) 16.2 % (13-45); MEAN CORPUSCULAR HEMOGLOBIN 26.1 pg (27.0-33.4); MEAN CORPUSCULAR VOLUME 79 fl (80-97); MONOCYTES % (AUTO) 9.8 % (3-13); PLATELET COUNT 755 10^3/uL (150-450); RED BLOOD COUNT 2.85 10^6/uL (4.35-5.55); RED CELL DISTRIBUTION WIDTH 16.2 % (11.5-14.0); SEGMENTED NEUTROPHILS % (AUTO) 69.7 % (42-78); TOTAL CELLS COUNTED % (AUTO) 100 %
[2019-04-08] MEDS: KETOROLAC TROMETHAMINE INJ/PF 30 MG/1 ML SDV IV PRN ×3 (05:42→18:51)
[2019-04-08] MEDS: CEFAZOLIN SODIUM 2 GM in DEXTROSE 5%-WATER 100 ML IV SCH ×4 (05:42→23:35)
[2019-04-08 05:48] LABS: HEMOGLOBIN 7.4 g/dL (13.5-17.0)
[2019-04-08] MEDS: NORMAL SALINE 1000 ML 1,000 ML IV PRN (05:51)
[2019-04-08] MEDS: HYDRALAZINE HCL INJ/PF 20 MG/1 ML SDV IV PRN ×3 (05:57→18:52)
[2019-04-08 06:03] LABS: ANION GAP 8 (5-19); BLOOD UREA NITROGEN 20 mg/dL (7-20); CALCIUM 8.1 mg/dL (8.4-10.2); CARBON DIOXIDE 24 mmol/L (22-30); CHLORIDE 104 mmol/L (98-107); GLUCOSE 203 mg/dL (75-110); POTASSIUM 4.8 mmol/L (3.6-5.0)
[2019-04-08] MEDS ORDERED: NORMAL SALINE 250 ML IV PRN ×2 (08:30)
[2019-04-08] MEDS: FAMOTIDINE 20 MG TABLET PO SCH ×2 (09:14→21:27)
[2019-04-08] MEDS: METOPROLOL TARTRATE 50 MG TABLET PO SCH ×2 (09:14→21:27)
[2019-04-08] MEDS: DOCUSATE SODIUM 100 MG CAPSULE PO SCH ×3 (09:14→21:26)
[2019-04-08] MEDS: LISINOPRIL 10 MG TABLET PO SCH (09:14)
[2019-04-08] MEDS: ENOXAPARIN SODIUM INJ 30 MG/0.3 ML DISP.SYRIN SUBCUT SCH (09:15)
[2019-04-08] MEDS ORDERED: HYDROMORPHONE HCL INJ/PF 2 MG/ML AMPULE IV ONE (10:04)
--- NOTE | 2019-04-08 10:17 | PDOC PROGRESS REPORT ---
Subjective Progress Note for:: 04/08/19 Reason For Visit: SURGICAL WOUND DEHISENCE Patient has complaints of stump pain. Uneventful night. Drains functioning satisfactorily. Physical Exam Vital Signs: Temp Pulse Resp BP Pulse Ox 98.3 F 60 16 179/78 H 100 04/08/19 07:49 04/08/19 08:59 04/08/19 08:59 04/08/19 07:49 04/08/19 08:59 Intake & Output 04/07/19 04/08/19 04/09/19 06:59 06:59 06:59 Intake Total 4250 Output Total 1865 Balance 2385 Weight 73.2 kg General appearance: PRESENT: mild distress Extremities exam: PRESENT: other - Stump dressing wrapped and left intact; both bulb drains functioning satisfactorily. Both bulbs emptied of 20 to 30 cc of serosanguineous fluid. Clot from drains were removed uneventfully. Results Laboratory Results: 04/08/19 05:18 04/08/19 05:18 04/07/19 04/07/19 04/07/19 15:05 15:05 15:05 WBC 11.2 H RBC 3.41 L Hgb 8.9 L Hct 26.8 L MCV 79 L MCH 26.2 L MCHC 33.3 RDW 15.9 H Plt Count 945 H Seg Neutrophils % 74.1 Lymphocytes % 16.3 Monocytes % 6.5 Eosinophils % 2.3 Basophils % 0.8 Absolute Neutrophils 8.3 H Absolute Lymphocytes 1.8 Absolute Monocytes 0.7 Absolute Eosinophils 0.3 Absolute Basophils 0.1 Sodium 137.4 Potassium 4.4 Chloride 103 Carbon Dioxide 26 Anion Gap 8 BUN 15 Creatinine 1.00 Est GFR ( Amer) > 60 Est GFR (Non-Af Amer) > 60 Glucose 121 H Calcium 8.9 Blood Type A POSITIVE Antibody Screen NEGATIVE 04/08/19 04/08/19 05:18 05:18 WBC 13.0 H RBC 2.85 L Hgb 7.4 L Hct 22.5 L MCV 79 L MCH 26.1 L MCHC 33.0 RDW 16.2 H Plt Count 755 H Seg Neutrophils % 69.7 Lymphocytes % 16.2 Monocytes % 9.8 Eosinophils % 3.0 Basophils % 1.3 Absolute Neutrophils 9.1 H Absolute Lymphocytes 2.1 Absolute Monocytes 1.3 Absolute Eosinophils 0.4 Absolute Basophils 0.2 Sodium 135.9 L Potassium 4.8 Chloride 104 Carbon Dioxide 24 Anion Gap 8 BUN 20 Creatinine 1.07 Est GFR ( Amer) > 60 Est GFR (Non-Af Amer) > 60 Glucose 203 H Calcium 8.1 L Blood Type Antibody Screen Assessment & Plan - Diagnosis (1) Right BKA wound dehiscence Is this a current diagnosis for this admission?: Yes Plan: Impression: 1 day postoperative closure of traumatically dehisced right BKA stump, with washout, drain placement, doing well; anemic likely multiple sources including delusional and blood loss over the last 24 hours Recommendations: 1. Agree with plans for blood transfusion 2. Bed today given patient's proclivity for judgment, risk of falling and busting stump open again. 3. Taper antibiotics off. (2) Diabetes mellitus type 2 in nonobese Is this a current diagnosis for this admission?: Yes (3) Essential hypertension Is this a current diagnosis for this admission?: Yes (4) History of osteomyelitis Is this a current diagnosis for this admission?: Yes (5) Hypertension Qualifiers: Hypertension type: essential hypertension Qualified Code(s): I10 - Essential (primary) hypertension Is this a current diagnosis for this admission?: Yes (6) Tobacco use disorder, severe, dependence Is this a current diagnosis for this admission?: Yes
--- NOTE | 2019-04-08 10:30 | PDOC PROGRESS REPORT ---
Subjective Progress Note for:: 04/08/19 Subjective:: ANIYAH ARRIAGA is a 63 year old male patient with past medical history of uncontrolled hypertension, type 2 diabetes mellitus, hyperlipidemia, tobacco and alcohol dependence presented with chief complaint of wound dehiscence. 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 Patient states that he was trying to transfer from his wheelchair to bed when he fell to one side causing Z hunting down but did to rip off and the wound to open. Patient denies any loss of consciousness, nausea, vomiting or any seizure activity. 04/08/2019: Patient seen resting in bed. He complains of pain at the BKA stump. He is status post primary closure of right BKA stump dehiscence. His hemoglobin dropped from 8.9-7.4. He is going to be transfused 2 units of packed RBC. For his pain I will give him a dose of Dilaudid and I will double his Percocet. Reason For Visit: SURGICAL WOUND DEHISENCE Physical Exam Vital Signs: Temp Pulse Resp BP Pulse Ox 98.3 F 60 16 179/78 H 100 04/08/19 07:49 04/08/19 08:59 04/08/19 08:59 04/08/19 07:49 04/08/19 08:59 Intake & Output 04/07/19 04/08/19 04/09/19 06:59 06:59 06:59 Intake Total 4250 Output Total 1865 Balance 2385 Weight 73.2 kg Results Laboratory Results: 04/08/19 05:18 04/08/19 05:18 04/07/19 04/07/19 04/07/19 15:05 15:05 15:05 WBC 11.2 H RBC 3.41 L Hgb 8.9 L Hct 26.8 L MCV 79 L MCH 26.2 L MCHC 33.3 RDW 15.9 H Plt Count 945 H Seg Neutrophils % 74.1 Lymphocytes % 16.3 Monocytes % 6.5 Eosinophils % 2.3 Basophils % 0.8 Absolute Neutrophils 8.3 H Absolute Lymphocytes 1.8 Absolute Monocytes 0.7 Absolute Eosinophils 0.3 Absolute Basophils 0.1 Sodium 137.4 Potassium 4.4 Chloride 103 Carbon Dioxide 26 Anion Gap 8 BUN 15 Creatinine 1.00 Est GFR ( Amer) > 60 Est GFR (Non-Af Amer) > 60 Glucose 121 H Calcium 8.9 Blood Type A POSITIVE Antibody Screen NEGATIVE 04/08/19 04/08/19 05:18 05:18 WBC 13.0 H RBC 2.85 L Hgb 7.4 L Hct 22.5 L MCV 79 L MCH 26.1 L MCHC 33.0 RDW 16.2 H Plt Count 755 H Seg Neutrophils % 69.7 Lymphocytes % 16.2 Monocytes % 9.8 Eosinophils % 3.0 Basophils % 1.3 Absolute Neutrophils 9.1 H Absolute Lymphocytes 2.1 Absolute Monocytes 1.3 Absolute Eosinophils 0.4 Absolute Basophils 0.2 Sodium 135.9 L Potassium 4.8 Chloride 104 Carbon Dioxide 24 Anion Gap 8 BUN 20 Creatinine 1.07 Est GFR ( Amer) > 60 Est GFR (Non-Af Amer) > 60 Glucose 203 H Calcium 8.1 L Blood Type Antibody Screen Assessment and Plan - Diagnosis (1) Acute blood loss anemia Is this a current diagnosis for this admission?: Yes Plan: The bleeding is from right BKA stump dehiscence. Hemoglobin dropped from 8.9-7.4. Patient is going to be transfused with 2 units of packed RBC. (2) Right BKA wound dehiscence Is this a current diagnosis for this admission?: Yes Plan: Status post washout and primary closure of right BKA stump dehiscence. (3) Type 2 diabetes mellitus Is this a current diagnosis for this admission?: Yes Plan: We will put him on sliding scale (4) Hypertension Qualifiers: Hypertension type: essential hypertension Qualified Code(s): I10 - Essential (primary) hypertension Is this a current diagnosis for this admission?: Yes Plan: Continue home medication (5) Hyperlipidemia Qualifiers: Hyperlipidemia type: unspecified Qualified Code(s): E78.5 - Hyperlipidemia, unspecified Is this a current diagnosis for this admission?: Yes Plan: Continue home medication
[2019-04-08] MEDS: ONDANSETRON HCL INJ/PF 4 MG/2 ML SDV IV PRN ×2 (12:23→20:37)
[2019-04-08] MEDS ORDERED: IBUPROFEN 800 MG TABLET PO ONE (16:00)
[2019-04-08 17:24] LABS: ABSOLUTE BASOPHILS # (AUTO) 0.2 10^3/uL (0.0-0.2); ABSOLUTE EOSINOPHILS # (AUTO) 0.5 10^3/uL (0.0-0.6); ABSOLUTE LYMPHOCYTES (AUTO) 1.8 10^3/uL (0.5-4.7); ABSOLUTE MONOCYTES (AUTO) 1.2 10^3/uL (0.1-1.4); ABSOLUTE NEUT (AUTO) 12.2 10^3/uL (1.7-8.2); HEMATOCRIT 28.3 % (37.9-51.0); HEMOGLOBIN 9.4 g/dL (13.5-17.0); LYMPHOCYTES % (AUTO) 11.1 % (13-45); MEAN CORPUSCULAR HEMOGLOBIN 26.6 pg (27.0-33.4); MEAN CORPUSCULAR HGB CONC 33.1 g/dL (32.0-36.0); MEAN CORPUSCULAR VOLUME 80 fl (80-97); MONOCYTES % (AUTO) 7.7 % (3-13); PLATELET COUNT 759 10^3/uL (150-450); RED BLOOD COUNT 3.52 10^6/uL (4.35-5.55); RED CELL DISTRIBUTION WIDTH 16.5 % (11.5-14.0); SEGMENTED NEUTROPHILS % (AUTO) 77.2 % (42-78); TOTAL CELLS COUNTED % (AUTO) 100 %; WHITE BLOOD COUNT 15.8 10^3/uL (4.0-10.5)
[2019-04-09 04:30] LABS: HEMATOCRIT 28.4 % (37.9-51.0); HEMOGLOBIN 9.6 g/dL (13.5-17.0); MEAN CORPUSCULAR HEMOGLOBIN 26.7 pg (27.0-33.4); MEAN CORPUSCULAR HGB CONC 33.7 g/dL (32.0-36.0); MEAN CORPUSCULAR VOLUME 79 fl (80-97); PLATELET COUNT 745 10^3/uL (150-450); RED BLOOD COUNT 3.58 10^6/uL (4.35-5.55); RED CELL DISTRIBUTION WIDTH 16.1 % (11.5-14.0); WHITE BLOOD COUNT 13.8 10^3/uL (4.0-10.5)
[2019-04-09] MEDS: CEFAZOLIN SODIUM 2 GM in DEXTROSE 5%-WATER 100 ML IV SCH (05:53)
[2019-04-09] MEDS: NORMAL SALINE 1000 ML 1,000 ML IV PRN ×2 (05:54→17:55)
[2019-04-09] MEDS: OXYCODONE-ACETAMINOPHEN 5-325 MG TABLET PO PRN ×2 (08:30→18:59)
[2019-04-09] MEDS ORDERED: HYDRALAZINE HCL 50 MG TABLET PO ONE (09:00)
--- NOTE | 2019-04-09 09:24 | PDOC PROGRESS REPORT ---
Subjective Progress Note for:: 04/09/19 Reason For Visit: SURGICAL WOUND DEHISENCE s/p reclosure of rt bka stump Physical Exam Vital Signs: Temp Pulse Resp BP Pulse Ox 97.9 F 58 L 18 186/74 H 100 04/09/19 07:24 04/09/19 07:24 04/09/19 07:24 04/09/19 07:24 04/09/19 07:24 Intake & Output 04/08/19 04/09/19 04/10/19 06:59 06:59 06:59 Intake Total 4250 3120 Output Total 1865 390 Balance 2385 2730 Weight 73.2 kg 73.2 kg General appearance: PRESENT: mild distress Head exam: PRESENT: normocephalic Eye exam: PRESENT: EOMI Mouth exam: PRESENT: moist Teeth exam: PRESENT: poor dentation Neck exam: PRESENT: full ROM Respiratory exam: PRESENT: clear to auscultation melonie Cardiovascular exam: PRESENT: RRR Vascular exam: PRESENT: normal capillary refill GI/Abdominal exam: PRESENT: soft Rectal exam: PRESENT: deferred Extremities exam: PRESENT: other - rt bka stump clean, wound intact, 2 brian drains with min bleed good cap refill. no cellulitis Musculoskeletal exam: PRESENT: full ROM Neurological exam: PRESENT: alert, awake, oriented to person, oriented to place Psychiatric exam: PRESENT: appropriate affect Skin exam: PRESENT: dry Results Laboratory Results: 04/09/19 04:02 04/08/19 05:18 04/07/19 04/08/19 04/09/19 15:05 17:05 04:02 WBC 15.8 H 13.8 H RBC 3.52 L 3.58 L Hgb 9.4 L 9.6 L Hct 28.3 L 28.4 L MCV 80 79 L MCH 26.6 L 26.7 L MCHC 33.1 33.7 RDW 16.5 H 16.1 H Plt Count 759 H 745 H Seg Neutrophils % 77.2 Lymphocytes % 11.1 L Monocytes % 7.7 Eosinophils % 3.0 Basophils % 1.0 Absolute Neutrophils 12.2 H Absolute Lymphocytes 1.8 Absolute Monocytes 1.2 Absolute Eosinophils 0.5 Absolute Basophils 0.2 Blood Type A POSITIVE Antibody Screen NEGATIVE Assessment & Plan - Plan Summary Plan Summary: wound clean dry cont brian drains 1 or 2 days
[2019-04-09] MEDS: LISINOPRIL 10 MG TABLET PO SCH (10:53)
[2019-04-09] MEDS: FAMOTIDINE 20 MG TABLET PO SCH ×2 (10:54→22:21)
[2019-04-09] MEDS: ENOXAPARIN SODIUM INJ 30 MG/0.3 ML DISP.SYRIN SUBCUT SCH (10:54)
[2019-04-09] MEDS: METOPROLOL TARTRATE 50 MG TABLET PO SCH ×2 (10:54→22:21)
[2019-04-09] MEDS: KETOROLAC TROMETHAMINE INJ/PF 30 MG/1 ML SDV IV PRN (12:00)
[2019-04-09] MEDS: ONDANSETRON HCL INJ/PF 4 MG/2 ML SDV IV PRN (12:00)
[2019-04-09] MEDS: DOCUSATE SODIUM 100 MG CAPSULE PO SCH ×2 (12:20→17:45)
[2019-04-09] MEDS ORDERED: MAGNESIUM CITRATE 296 ML BOTTLE PO ONE (12:30)
--- NOTE | 2019-04-09 12:55 | PDOC PROGRESS REPORT ---
Subjective Progress Note for:: 04/09/19 Subjective:: ANIYAH ARRIAGA is a 63 year old male patient with past medical history of uncontrolled hypertension, type 2 diabetes mellitus, hyperlipidemia, tobacco and alcohol dependence presented with chief complaint of wound dehiscence. 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 Patient states that he was trying to transfer from his wheelchair to bed when he fell to one side causing Z hunting down but did to rip off and the wound to open. Patient denies any loss of consciousness, nausea, vomiting or any seizure activity. 04/08/2019: Patient seen resting in bed. He complains of pain at the BKA stump. He is status post primary closure of right BKA stump dehiscence. His hemoglobin dropped from 8.9-7.4. He is going to be transfused 2 units of packed RBC. For his pain I will give him a dose of Dilaudid and I will double his Percocet. 04/09/2019: No adverse events overnight. Patient seen resting in bed comfortably. Still complains of some pain at the BKA stump site. 1 unit of packed RBC transfusion his hemoglobin is maintained at 9. He has been on cefazolin for the last 48 hours as a prophylaxis. Now it is discontinued. Reason For Visit: SURGICAL WOUND DEHISENCE Physical Exam Vital Signs: Temp Pulse Resp BP Pulse Ox 97.5 F 70 18 196/89 H 100 04/09/19 11:23 04/09/19 11:23 04/09/19 11:23 04/09/19 11:23 04/09/19 11:23 Intake & Output 04/08/19 04/09/19 04/10/19 06:59 06:59 06:59 Intake Total 4250 3120 Output Total 1865 390 Balance 2385 2730 Weight 73.2 kg 73.2 kg General appearance: PRESENT: no acute distress Head exam: PRESENT: atraumatic Mouth exam: PRESENT: moist Neck exam: ABSENT: carotid bruit, JVD, lymphadenopathy, thyromegaly Respiratory exam: PRESENT: clear to auscultation melonie. ABSENT: rales, rhonchi, wheezes Cardiovascular exam: PRESENT: RRR. ABSENT: diastolic murmur, rubs, systolic murmur GI/Abdominal exam: PRESENT: normal bowel sounds, soft. ABSENT: distended, guarding, mass, organolmegaly, rebound, tenderness Extremities exam: PRESENT: tenderness. ABSENT: pedal edema Neurological exam: PRESENT: alert, awake, oriented to person, oriented to place, oriented to time, oriented to situation Results Laboratory Results: 04/09/19 04:02 04/08/19 05:18 04/08/19 04/09/19 17:05 04:02 WBC 15.8 H 13.8 H RBC 3.52 L 3.58 L Hgb 9.4 L 9.6 L Hct 28.3 L 28.4 L MCV 80 79 L MCH 26.6 L 26.7 L MCHC 33.1 33.7 RDW 16.5 H 16.1 H Plt Count 759 H 745 H Seg Neutrophils % 77.2 Lymphocytes % 11.1 L Monocytes % 7.7 Eosinophils % 3.0 Basophils % 1.0 Absolute Neutrophils 12.2 H Absolute Lymphocytes 1.8 Absolute Monocytes 1.2 Absolute Eosinophils 0.5 Absolute Basophils 0.2 Assessment and Plan - Diagnosis (1) Acute blood loss anemia Is this a current diagnosis for this admission?: Yes Plan: The bleeding is from right BKA stump dehiscence. Hemoglobin dropped from 8.9-7.4. Patient is going to be transfused with 2 units of packed RBC. (2) Right BKA wound dehiscence Is this a current diagnosis for this admission?: Yes Plan: Status post washout and primary closure of right BKA stump dehiscence. (3) Type 2 diabetes mellitus Is this a current diagnosis for this admission?: Yes Plan: We will put him on sliding scale (4) Hypertension Qualifiers: Hypertension type: essential hypertension Qualified Code(s): I10 - Essential (primary) hypertension Is this a current diagnosis for this admission?: Yes Plan: Continue home medication (5) Hyperlipidemia Qualifiers: Hyperlipidemia type: unspecified Qualified Code(s): E78.5 - Hyperlipidemia, unspecified Is this a current diagnosis for this admission?: Yes Plan: Continue home medication
[2019-04-09] MEDS: HYDRALAZINE HCL 50 MG TABLET PO SCH ×2 (13:44→22:21)
[2019-04-09] MEDS ORDERED: ONDANSETRON HCL INJ/PF 4 MG/2 ML SDV IV PRN (15:00)
[2019-04-10] MEDS: HYDRALAZINE HCL 50 MG TABLET PO SCH ×3 (05:27→21:58)
[2019-04-10] MEDS: HYDRALAZINE HCL INJ/PF 20 MG/1 ML SDV IV PRN (08:21)
[2019-04-10] MEDS: NORMAL SALINE 1000 ML 1,000 ML IV PRN (08:23)
[2019-04-10 08:43] LABS: HEMATOCRIT 29.8 % (37.9-51.0); MEAN CORPUSCULAR HEMOGLOBIN 26.8 pg (27.0-33.4); MEAN CORPUSCULAR HGB CONC 33.5 g/dL (32.0-36.0); MEAN CORPUSCULAR VOLUME 80 fl (80-97); PLATELET COUNT 748 10^3/uL (150-450); RED BLOOD COUNT 3.72 10^6/uL (4.35-5.55); RED CELL DISTRIBUTION WIDTH 16.4 % (11.5-14.0); WHITE BLOOD COUNT 11.3 10^3/uL (4.0-10.5)
[2019-04-10 09:06] LABS: ALBUMIN 3.4 g/dL (3.5-5.0); ALKALINE PHOSPHATASE 84 U/L (38-126); ANION GAP 9 (5-19); ASPARTATE AMINO TRANSFERASE 21 U/L (17-59); BILIRUBIN,DIRECT 0.3 mg/dL (0.0-0.4); BILIRUBIN,TOTAL 0.3 mg/dL (0.2-1.3); BLOOD UREA NITROGEN 16 mg/dL (7-20); CALCIUM 8.9 mg/dL (8.4-10.2); CARBON DIOXIDE 25 mmol/L (22-30); CHLORIDE 100 mmol/L (98-107); GLUCOSE 148 mg/dL (75-110); TOTAL PROTEIN 7.2 g/dL (6.3-8.2)
[2019-04-10 09:07] LABS: ABSOLUTE LYMPHOCYTES# (MANUAL) 1.8 10^3/uL (0.5-4.7); ABSOLUTE MONOCYTES # (MANUAL) 0.6 10^3/uL (0.1-1.4); BAND NEUTROPHILS % (MANUAL) 1 % (3-5); BASOPHILS % (MANUAL) 0 % (0-2); EOSINOPHILS % (MANUAL) 3 % (0-6); LYMPHOCYTES % (MANUAL) 16 % (13-45); MONOCYTES % (MANUAL) 5 % (3-13); SEGMENTED NEUTROPHILS % (MAN) 75 % (42-78); TOTAL CELLS COUNTED 100
[2019-04-10 09:09] LABS: ANISOCYTOSIS 1+; POLYCHROMASIA SLIGHT
[2019-04-10 09:10] LABS: PLATELET COMMENT INCREASED
[2019-04-10] MEDS: DOCUSATE SODIUM 100 MG CAPSULE PO SCH ×2 (09:10→18:09)
[2019-04-10] MEDS: LISINOPRIL 10 MG TABLET PO SCH (09:10)
[2019-04-10] MEDS: METOPROLOL TARTRATE 50 MG TABLET PO SCH ×2 (09:11→21:59)
[2019-04-10] MEDS: ENOXAPARIN SODIUM INJ 30 MG/0.3 ML DISP.SYRIN SUBCUT SCH (09:11)
[2019-04-10 09:12] LABS: HYPOCHROMASIA SLIGHT
[2019-04-10] MEDS: OXYCODONE-ACETAMINOPHEN 5-325 MG TABLET PO PRN ×3 (09:12→20:28)
[2019-04-10] MEDS: FAMOTIDINE 20 MG TABLET PO SCH ×2 (09:13→21:59)
--- NOTE | 2019-04-10 10:34 | PDOC PROGRESS REPORT ---
Subjective Progress Note for:: 04/10/19 Subjective:: 63 year old male patient with past medical history of uncontrolled hypertension, type 2 diabetes mellitus, hyperlipidemia, tobacco and alcohol dependence presented with chief complaint of wound dehiscence. 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 Patient states that he was trying to transfer from his wheelchair to bed when he fell to one side causing Z hunting down but did to rip off and the wound to open. Patient denies any loss of consciousness, nausea, vomiting or any seizure activity. 04/08/2019: Patient seen resting in bed. He complains of pain at the BKA stump. He is status post primary closure of right BKA stump dehiscence. His hemoglobin dropped from 8.9-7.4. He is going to be transfused 2 units of packed RBC. For his pain I will give him a dose of Dilaudid and I will double his Percocet. 04/09/2019: No adverse events overnight. Patient seen resting in bed comfo rtably. Still complains of some pain at the BKA stump site. 1 unit of packed RBC transfusion his hemoglobin is maintained at 9. He has been on cefazolin for the last 48 hours as a prophylaxis. Now it is discontinued. 04/10/2019 acute events in the last 24 hours. Patient is afebrile. T-max is 97 .9. The surgical drains at right stump working well. She received 1 unit of PRBC during this hospital stay. Reason For Visit: SURGICAL WOUND DEHISENCE Physical Exam Vital Signs: Temp Pulse Resp BP Pulse Ox 98.7 F 59 L 16 169/80 H 100 04/10/19 07:11 04/10/19 07:11 04/10/19 07:11 04/10/19 09:11 04/10/19 07:11 Intake & Output 04/09/19 04/10/19 04/11/19 06:59 06:59 06:59 Intake Total 3120 3337 Output Total 390 300 18 Balance 2730 3037 -18 Weight 73.2 kg 71.2 kg General appearance: PRESENT: no acute distress, cooperative Head exam: PRESENT: atraumatic Eye exam: PRESENT: PERRLA Mouth exam: PRESENT: moist, tongue midline Neck exam: ABSENT: carotid bruit, JVD, lymphadenopathy, thyromegaly Respiratory exam: PRESENT: clear to auscultation melonie. ABSENT: rales, rhonchi, wheezes Cardiovascular exam: PRESENT: RRR. ABSENT: diastolic murmur, rubs, systolic murmur GI/Abdominal exam: PRESENT: normal bowel sounds, soft. ABSENT: distended, guarding, mass, organolmegaly, rebound, tenderness Rectal exam: PRESENT: deferred Extremities exam: PRESENT: other - Patient has a right BKA with the clients. Slight amount of bright red blood in the container. Neurological exam: PRESENT: alert, awake, oriented to person, oriented to place, oriented to time, oriented to situation, CN II-XII grossly intact. ABSENT: motor sensory deficit Psychiatric exam: PRESENT: appropriate affect, normal mood. ABSENT: homicidal ideation, suicidal ideation Results Laboratory Results: 04/10/19 08:24 04/10/19 08:24 04/10/19 04/10/19 08:24 08:24 WBC 11.3 H RBC 3.72 L Hgb 10.0 L Hct 29.8 L MCV 80 MCH 26.8 L MCHC 33.5 RDW 16.4 H Plt Count 748 H Seg Neutrophils % Not Reportable Lymphocytes % Not Reportable Monocytes % Not Reportable Eosinophils % Not Reportable Basophils % Not Reportable Absolute Neutrophils Not Reportable Absolute Lymphocytes Not Reportable Absolute Monocytes Not Reportable Absolute Eosinophils Not Reportable Absolute Basophils Not Reportable Sodium 134.3 L Potassium 5.0 Chloride 100 Carbon Dioxide 25 Anion Gap 9 BUN 16 Creatinine 0.89 Est GFR ( Amer) > 60 Est GFR (Non-Af Amer) > 60 Glucose 148 H Calcium 8.9 Magnesium 2.3 Total Bilirubin 0.3 AST 21 Alkaline Phosphatase 84 Total Protein 7.2 Albumin 3.4 L Assessment and Plan - Diagnosis (1) Acute blood loss anemia Is this a current diagnosis for this admission?: Yes Plan: The bleeding is from right BKA stump dehiscence. Hemoglobin dropped from 8.9-7.4. Patient is going to be transfused with 2 units of packed RBC. 04/10/2019-patient came in with hemoglobin of 7.4 status post 2 units of blood transfusion latest hemoglobin is 10. Improved. Acute blood loss anemia is from the right BKA stump. (2) Right BKA wound dehiscence Is this a current diagnosis for this admission?: Yes Plan: Status post washout and primary closure of right BKA stump dehiscence. 04/10/2019-patient has a recent BKA last week admitted with wound dehiscence. Now surgical drains are in place covered with dressing. (3) Diabetes mellitus type 2 in nonobese Is this a current diagnosis for this admission?: No Plan: 04/10/2019-patient has history of type 2 diabetes mellitus latest blood sugar is 148. hemoglobin A1c is pending. (4) Hypertension Qualifiers: Hypertension type: essential hypertension Qualified Code(s): I10 - Essential (primary) hypertension Is this a current diagnosis for this admission?: Yes Plan: Continue home medication 04/10/2019-patient came in with hypertension he has history of essential hypertension latest blood pressure is 153/73. Plan is to continue to closely monitor the blood pressure he is on metoprolol 50 mg every 12 hours, hydralazine 10 mg IV every 6 as needed, lisinopril 10 mg daily. - Time Time Spent with patient: 25-34 minutes Medications reviewed and adjusted accordingly: Yes Anticipated discharge: Home with Homehealth
--- NOTE | 2019-04-10 20:50 | PDOC PROGRESS REPORT ---
Subjective Progress Note for:: 04/10/19 Reason For Visit: SURGICAL WOUND DEHISENCE Physical Exam Vital Signs: Temp Pulse Resp BP Pulse Ox 98.9 F 67 17 163/86 H 99 04/10/19 20:00 04/10/19 20:00 04/10/19 20:00 04/10/19 20:00 04/10/19 20:00 Intake & Output 04/09/19 04/10/19 04/11/19 06:59 06:59 06:59 Intake Total 3120 3337 476 Output Total 390 300 18 Balance 2730 3037 458 Weight 73.2 kg 71.2 kg Results Laboratory Results: 04/10/19 08:24 04/10/19 08:24 04/10/19 04/10/19 08:24 08:24 WBC 11.3 H RBC 3.72 L Hgb 10.0 L Hct 29.8 L MCV 80 MCH 26.8 L MCHC 33.5 RDW 16.4 H Plt Count 748 H Seg Neutrophils % Not Reportable Lymphocytes % Not Reportable Monocytes % Not Reportable Eosinophils % Not Reportable Basophils % Not Reportable Absolute Neutrophils Not Reportable Absolute Lymphocytes Not Reportable Absolute Monocytes Not Reportable Absolute Eosinophils Not Reportable Absolute Basophils Not Reportable Sodium 134.3 L Potassium 5.0 Chloride 100 Carbon Dioxide 25 Anion Gap 9 BUN 16 Creatinine 0.89 Est GFR ( Amer) > 60 Est GFR (Non-Af Amer) > 60 Glucose 148 H Calcium 8.9 Magnesium 2.3 Total Bilirubin 0.3 AST 21 Alkaline Phosphatase 84 Total Protein 7.2 Albumin 3.4 L Assessment & Plan - Diagnosis (1) Postoperative wound dehiscence Qualifiers: Encounter type: subsequent encounter Qualified Code(s): T81.31XD - Disruption of external operation (surgical) wound, not elsewhere classified, subsequent encounter Is this a current diagnosis for this admission?: Yes - Plan Summary Plan Summary: This is a 63-year-old male status post fall. When he fell, he struck his below- knee amputation site, causing a wound dehiscence. The dressing is intact today. The patient reports no significant pain at present. His JPs are productive of small amounts of sanguinous fluid. Consult social media marketing manager for discharge planning/safety eval. Will take down dressing tomorrow and reexamine the wound. JPs out soon, if output remains low. Will follow.
[2019-04-11] MEDS: HYDRALAZINE HCL 50 MG TABLET PO SCH ×3 (05:48→21:47)
[2019-04-11 08:17] LABS: ALBUMIN 3.1 g/dL (3.5-5.0); ALKALINE PHOSPHATASE 76 U/L (38-126); ANION GAP 8 (5-19); ASPARTATE AMINO TRANSFERASE 21 U/L (17-59); BILIRUBIN,DIRECT 0.2 mg/dL (0.0-0.4); BILIRUBIN,TOTAL 0.2 mg/dL (0.2-1.3); BLOOD UREA NITROGEN 16 mg/dL (7-20); CALCIUM 9.1 mg/dL (8.4-10.2); CARBON DIOXIDE 24 mmol/L (22-30); CHLORIDE 102 mmol/L (98-107); GLUCOSE 116 mg/dL (75-110); POTASSIUM 5.4 mmol/L (3.6-5.0); TOTAL PROTEIN 6.6 g/dL (6.3-8.2)
[2019-04-11] MEDS: OXYCODONE-ACETAMINOPHEN 5-325 MG TABLET PO PRN ×4 (08:23→22:14)
[2019-04-11] MEDS: ENOXAPARIN SODIUM INJ 30 MG/0.3 ML DISP.SYRIN SUBCUT SCH (09:47)
[2019-04-11] MEDS: METOPROLOL TARTRATE 50 MG TABLET PO SCH ×2 (09:49→21:47)
[2019-04-11] MEDS: DOCUSATE SODIUM 100 MG CAPSULE PO SCH ×2 (09:49→17:08)
[2019-04-11] MEDS: FAMOTIDINE 20 MG TABLET PO SCH ×2 (09:50→21:47)
[2019-04-11] MEDS: LISINOPRIL 10 MG TABLET PO SCH (09:50)
--- NOTE | 2019-04-11 10:23 | PDOC PROGRESS REPORT ---
Subjective Progress Note for:: 04/11/19 Subjective:: 63 year old male patient with past medical history of uncontrolled hypertension, type 2 diabetes mellitus, hyperlipidemia, tobacco and alcohol dependence presented with chief complaint of wound dehiscence. 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 Patient states that he was trying to transfer from his wheelchair to bed when he fell to one side causing Z hunting down but did to rip off and the wound to open. Patient denies any loss of consciousness, nausea, vomiting or any seizure activity. 04/08/2019: Patient seen resting in bed. He complains of pain at the BKA stump. He is status post primary closure of right BKA stump dehiscence. His hemoglobin dropped from 8.9-7.4. He is going to be transfused 2 units of packed RBC. For his pain I will give him a dose of Dilaudid and I will double his Percocet. 04/09/2019: No adverse events overnight. Patient seen resting in bed comfo rtably. Still complains of some pain at the BKA stump site. 1 unit of packed RBC transfusion his hemoglobin is maintained at 9. He has been on cefazolin for the last 48 hours as a prophylaxis. Now it is discontinued. 04/10/2019 acute events in the last 24 hours. Patient is afebrile. T-max is 97 .9. The surgical drains at right stump working well. She received 1 unit of PRBC during this hospital stay. 04/11/2019-no acute events in the last 24 hours. Patient is afebrile. T-max is 98.9. No complaints from the patient. Comfortably in the bed. Communicating well. There is following the patient. Reason For Visit: SURGICAL WOUND DEHISENCE Physical Exam Vital Signs: Temp Pulse Resp BP Pulse Ox 97.6 F 61 20 148/73 H 100 04/11/19 08:01 04/11/19 08:01 04/11/19 08:01 04/11/19 08:01 04/11/19 08:01 Intake & Output 04/10/19 04/11/19 04/12/19 06:59 06:59 06:59 Intake Total 3337 712 Output Total 300 18 Balance 3037 694 Weight 71.2 kg 70.4 kg General appearance: PRESENT: no acute distress Head exam: PRESENT: atraumatic Eye exam: PRESENT: PERRLA Mouth exam: PRESENT: dry mucosa Neck exam: ABSENT: carotid bruit, JVD, lymphadenopathy, thyromegaly Respiratory exam: PRESENT: clear to auscultation melonie. ABSENT: rales, rhonchi, wheezes Cardiovascular exam: PRESENT: RRR. ABSENT: diastolic murmur, rubs, systolic murmur GI/Abdominal exam: PRESENT: normal bowel sounds, soft. ABSENT: distended, guarding, mass, organolmegaly, rebound, tenderness Rectal exam: PRESENT: deferred Extremities exam: PRESENT: other - Patient has a right BKA and came back again for wound dehiscence drains are working well. No complaints of pain. Neurological exam: PRESENT: alert, awake, oriented to person, oriented to place, oriented to time, oriented to situation, CN II-XII grossly intact. ABSENT: motor sensory deficit Psychiatric exam: PRESENT: appropriate affect, normal mood. ABSENT: homicidal ideation, suicidal ideation Results Laboratory Results: 04/10/19 08:24 04/11/19 05:22 04/11/19 05:22 Sodium 134.2 L Potassium 5.4 H Chloride 102 Carbon Dioxide 24 Anion Gap 8 BUN 16 Creatinine 0.86 Est GFR ( Amer) > 60 Est GFR (Non-Af Amer) > 60 Glucose 116 H Calcium 9.1 Magnesium 2.5 H Total Bilirubin 0.2 AST 21 Alkaline Phosphatase 76 Total Protein 6.6 Albumin 3.1 L Assessment and Plan - Diagnosis (1) Acute blood loss anemia Is this a current diagnosis for this admission?: Yes Plan: The bleeding is from right BKA stump dehiscence. Hemoglobin dropped from 8.9-7.4. Patient is going to be transfused with 2 units of packed RBC. 04/10/2019-patient came in with hemoglobin of 7.4 status post 2 units of blood transfusion latest hemoglobin is 10. Improved. Acute blood loss anemia is from the right BKA stump. 03/2019-patient hemoglobin is 10. This is yesterday lab. Today's labs are pending. Hemoglobin stable. Patient received 2 units of PRBC because of the blood loss from the right BKA incision site/. (2) Right BKA wound dehiscence Is this a current diagnosis for this admission?: Yes Plan: Status post washout and primary closure of right BKA stump dehiscence. 04/10/2019-patient has a recent BKA last week admitted with wound dehiscence. Now surgical drains are in place covered with dressing. 04/11/2019-patient has right BKA done recently for osteomyelitis admitted again for wound dehiscence. 2 drains are present at the wound site. Draining slight bright red-colored blood in the containers. (3) Diabetes mellitus type 2 in nonobese Is this a current diagnosis for this admission?: No Plan: 04/10/2019-patient has history of type 2 diabetes mellitus latest blood sugar is 148. hemoglobin A1c is pending. 04/11/2019-patient has history of type 2 diabetes mellitus blood sugars are relatively controlled. Globin A1c 6.6. Plan is to continue insulin sliding scale before meals and at bedtime. (4) Hypertension Qualifiers: Hypertension type: essential hypertension Qualified Code(s): I10 - Essential (primary) hypertension Is this a current diagnosis for this admission?: Yes - Time Time Spent with patient: 15-24 minutes Medications reviewed and adjusted accordingly: Yes Anticipated discharge: Home with Homehealth
--- NOTE | 2019-04-11 14:00 | PDOC PROGRESS REPORT ---
Subjective Reason For Visit: SURGICAL WOUND DEHISENCE Physical Exam Vital Signs: Temp Pulse Resp BP Pulse Ox 97.6 F 57 L 16 135/81 H 100 04/11/19 11:34 04/11/19 11:34 04/11/19 11:34 04/11/19 11:34 04/11/19 11:34 Intake & Output 04/10/19 04/11/19 04/12/19 06:59 06:59 06:59 Intake Total 3337 712 360 Output Total 300 18 Balance 3037 694 360 Weight 71.2 kg 70.4 kg Results Laboratory Results: 04/10/19 08:24 04/11/19 05:22 04/11/19 05:22 Sodium 134.2 L Potassium 5.4 H Chloride 102 Carbon Dioxide 24 Anion Gap 8 BUN 16 Creatinine 0.86 Est GFR ( Amer) > 60 Est GFR (Non-Af Amer) > 60 Glucose 116 H Calcium 9.1 Magnesium 2.5 H Total Bilirubin 0.2 AST 21 Alkaline Phosphatase 76 Total Protein 6.6 Albumin 3.1 L Assessment & Plan - Diagnosis (1) Postoperative wound dehiscence Qualifiers: Encounter type: subsequent encounter Qualified Code(s): T81.31XD - Disruption of external operation (surgical) wound, not elsewhere classified, subsequent encounter Is this a current diagnosis for this admission?: Yes - Plan Summary Plan Summary: This is a 63-year-old male status post fall. When he fell, he struck his below- knee amputation site, causing a wound dehiscence. The patient is status post wound washout and closure. The patient reports no significant pain at present. His JPs are productive of scant amounts of sanguinous fluid. I will remove his JPs at the bedside today. I have examined the incision, and it is clean, dry, and intact. Discharge planning/safety eval. The patient is cleared for discharge from a surgical standpoint. I will see the patient again on an as- needed basis. Please renotify with any questions or concerns.
[2019-04-12] MEDS: HYDRALAZINE HCL 50 MG TABLET PO SCH (06:13)
[2019-04-12 06:26] LABS: HEMATOCRIT 29.6 % (37.9-51.0); MEAN CORPUSCULAR HEMOGLOBIN 27.4 pg (27.0-33.4); MEAN CORPUSCULAR HGB CONC 33.8 g/dL (32.0-36.0); MEAN CORPUSCULAR VOLUME 81 fl (80-97); PLATELET COUNT 814 10^3/uL (150-450); RED BLOOD COUNT 3.66 10^6/uL (4.35-5.55); RED CELL DISTRIBUTION WIDTH 17.5 % (11.5-14.0); WHITE BLOOD COUNT 10.4 10^3/uL (4.0-10.5)
[2019-04-12 07:44] LABS: ABSOLUTE LYMPHOCYTES# (MANUAL) 3.7 10^3/uL (0.5-4.7); ABSOLUTE MONOCYTES # (MANUAL) 0.5 10^3/uL (0.1-1.4); BASOPHILS % (MANUAL) 1 % (0-2); EOSINOPHILS % (MANUAL) 4 % (0-6); LYMPHOCYTES % (MANUAL) 36 % (13-45); MONOCYTES % (MANUAL) 5 % (3-13); SEGMENTED NEUTROPHILS % (MAN) 54 % (42-78); TOTAL CELLS COUNTED 100
[2019-04-12 07:45] LABS: ANISOCYTOSIS 1+; PLATELET COMMENT INCREASED; ROULEAUX SLIGHT
[2019-04-12] MEDS ORDERED: SODIUM POLYSTYRENE SULFONATE 15 GM/60 ML PO ONE (09:00)
[2019-04-12 09:13] LABS: ALBUMIN 3.5 g/dL (3.5-5.0); ALKALINE PHOSPHATASE 72 U/L (38-126); ANION GAP 10 (5-19); ASPARTATE AMINO TRANSFERASE 20 U/L (17-59); BILIRUBIN,DIRECT 0.2 mg/dL (0.0-0.4); BILIRUBIN,TOTAL 0.2 mg/dL (0.2-1.3); BLOOD UREA NITROGEN 21 mg/dL (7-20); CALCIUM 9.4 mg/dL (8.4-10.2); CARBON DIOXIDE 25 mmol/L (22-30); CHLORIDE 99 mmol/L (98-107); GLUCOSE 132 mg/dL (75-110); POTASSIUM 5.4 mmol/L (3.6-5.0); TOTAL PROTEIN 7.4 g/dL (6.3-8.2)
[2019-04-12 09:34] VITALS: BP 146/80
[2019-04-12] MEDS ORDERED: MAGNESIUM CITRATE 296 ML BOTTLE PO SCH (10:00)
--- NOTE | 2019-04-12 11:10 | PDOC DISCHARGE SUMMARY ---
General - Admit/Disc Date/PCP Admission Date/Primary Care Provider: 04/07/19 16:06 ALHAJI VILLALBA MD Discharge Date: 04/12/19 - Discharge Diagnosis (1) Acute blood loss anemia Is this a current diagnosis for this admission?: Yes Summary: The bleeding is from right BKA stump dehiscence. Hemoglobin dropped from 8.9-7.4. Patient is going to be transfused with 2 units of packed RBC. 04/10/2019-patient came in with hemoglobin of 7.4 status post 2 units of blood transfusion latest hemoglobin is 10. Improved. Acute blood loss anemia is from the right BKA stump. 04/11/2019-patient hemoglobin is 10. This is yesterday lab. Today's labs are pending. Hemoglobin stable. Patient received 2 units of PRBC because of the blood loss from the right BKA incision site/. 04/12/2019-patient's latest hemoglobin is stable. Came in with acute blood loss anemia bleed is from the right BKA wound site. Status post 2 units of blood transfusion hemoglobin stable now. (2) Right BKA wound dehiscence Is this a current diagnosis for this admission?: Yes Summary: Status post washout and primary closure of right BKA stump dehiscence. 04/10/2019-patient has a recent BKA last week admitted with wound dehiscence. Now surgical drains are in place covered with dressing. 04/11/2019-patient has right BKA done recently for osteomyelitis admitted again for wound dehiscence. 2 drains are present at the wound site. Draining slight bright red-colored blood in the containers. 04/12/[id number]-pzje-old male recently had a right BKA for osteomyelitis of the right foot came back for wound with wound dehiscence and acute blood loss anemia anemia is resolved. Drains are removed yesterday. Wound site is clean as per the surgical team. Patient can go home today and he said he has an appointment to get a measurement for a prosthesis. (3) Diabetes mellitus type 2 in nonobese Is this a current diagnosis for this admission?: No Summary: 04/10/2019-patient has history of type 2 diabetes mellitus latest blood sugar is 148. hemoglobin A1c is pending. 04/11/2019-patient has history of type 2 diabetes mellitus blood sugars are relatively controlled. Globin A1c 6.6. Plan is to continue insulin sliding scale before meals and at bedtime. 04/12/2019-patient has a history of type 2 diabetes mellitus blood sugars are relatively controlled hemoglobin A1c 6.6. On insulin sliding scale. Dietary advice was provided again today. (4) Hypertension Is this a current diagnosis for this admission?: Yes Summary: 04/12/2019-patient blood pressure today is 160/82. Patient was advised about low- salt diet. Patient was strongly advised to continue his home medications. - Additional Information Resuscitation Status: Full Code Discharge Diet: Diabetic Discharge Activity: Activity As Tolerated Prescriptions: Oxycodone HCl/Acetaminophen [Percocet 5-325 mg Tablet] 1 tab PO Q6HP PRN #10 tab PRN Reason: Home Medications: RX: Lisinopril 20 mg PO DAILY 04/11/19 RX: Ondansetron HCl [Zofran 4 mg Tablet] 4 mg PO Q4HP PRN 04/11/19 Oxycodone HCl/Acetaminophen [Percocet 5-325 mg Tablet] 1 tab PO Q6HP PRN #10 tab 04/12/19 History of Present Illness History of Present Illness: ANIYAH ARRIAGA is a 63 year old male 63 year old male patient with past medical history of uncontrolled hypertension, type 2 diabetes mellitus, hyperlipidemia, tobacco and alcohol dependence presented with chief complaint of wound dehiscence. 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 Patient states that he was trying to transfer from his wheelchair to bed when he fell to one side causing Z hunting down but did to rip off and the wound to open. Patient denies any loss of consciousness, nausea, vomiting or any seizure activity. Hospital Course Hospital Course: 63 year old male patient with past medical history of uncontrolled hypertension, type 2 diabetes mellitus, hyperlipidemia, tobacco and alcohol dependence presented with chief complaint of wound dehiscence. 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 Patient states that he was trying to transfer from his wheelchair to bed when he fell to one side causing Z hunting down but did to rip off and the wound to open. Patient denies any loss of consciousness, nausea, vomiting or any seizure activity. 04/08/2019: Patient seen resting in bed. He complains of pain at the BKA stump. He is status post primary closure of right BKA stump dehiscence. His hemoglobin dropped from 8.9-7.4. He is going to be transfused 2 units of packed RBC. For his pain I will give him a dose of Dilaudid and I will double his Percocet. 04/09/2019: No adverse events overnight. Patient seen resting in bed comfortably. Still complains of some pain at the BKA stump site. 1 unit of packed RBC transfusion his hemoglobin is maintained at 9. He has been on cefazolin for the last 48 hours as a prophylaxis. Now it is discontinued. 04/10/2019 acute events in the last 24 hours. Patient is afebrile. T-max is 97.9. The surgical drains at right stump working well. She received 1 unit of PRBC during this hospital stay. 04/11/2019-no acute events in the last 24 hours. Patient is afebrile. T-max is 98.9. No complaints from the patient. Comfortably in the bed. Communicating well. There is following the patient. Physical Exam Vital Signs: Temp Pulse Resp BP Pulse Ox 98.1 F 58 L 16 146/80 H 100 04/12/19 08:00 04/12/19 08:00 04/12/19 08:00 04/12/19 08:00 04/12/19 08:00 Intake & Output 04/11/19 04/12/19 04/13/19 06:59 06:59 06:59 Intake Total 712 1950 Output Total 18 Balance 694 1950 Weight 70.4 kg 71.4 kg General appearance: PRESENT: no acute distress Head exam: PRESENT: atraumatic Eye exam: PRESENT: PERRLA Mouth exam: PRESENT: dry mucosa Teeth exam: PRESENT: poor dentation Neck exam: ABSENT: carotid bruit, JVD, lymphadenopathy, thyromegaly Respiratory exam: PRESENT: clear to auscultation melonie. ABSENT: rales, rhonchi, wheezes Cardiovascular exam: PRESENT: RRR. ABSENT: diastolic murmur, rubs, systolic murmur GI/Abdominal exam: PRESENT: normal bowel sounds, soft. ABSENT: distended, guarding, mass, organolmegaly, rebound, tenderness Rectal exam: PRESENT: deferred Extremities exam: PRESENT: full ROM, other - Right BKA wrapped in bandage.. ABSENT: calf tenderness, clubbing, pedal edema Neurological exam: PRESENT: alert, awake, oriented to person, oriented to place, oriented to time, oriented to situation, CN II-XII grossly intact. ABSENT: motor sensory deficit Psychiatric exam: PRESENT: appropriate affect, normal mood. ABSENT: homicidal ideation, suicidal ideation Results Laboratory Results: 04/12/19 05:59 04/12/19 05:59 04/12/19 04/12/19 05:59 05:59 WBC 10.4 RBC 3.66 L Hgb 10.0 L Hct 29.6 L MCV 81 MCH 27.4 MCHC 33.8 RDW 17.5 H Plt Count 814 H Seg Neutrophils % Not Reportable Lymphocytes % Not Reportable Monocytes % Not Reportable Eosinophils % Not Reportable Basophils % Not Reportable Absolute Neutrophils Not Reportable Absolute Lymphocytes Not Reportable Absolute Monocytes Not Reportable Absolute Eosinophils Not Reportable Absolute Basophils Not Reportable Sodium 133.9 L Potassium 5.4 H Chloride 99 Carbon Dioxide 25 Anion Gap 10 BUN 21 H Creatinine 1.11 Est GFR ( Amer) > 60 Est GFR (Non-Af Amer) > 60 Glucose 132 H Calcium 9.4 Total Bilirubin 0.2 AST 20 Alkaline Phosphatase 72 Total Protein 7.4 Albumin 3.5 Qualifiers - * PATIENT BEING DISCHARGED WITH ANY OF THE FOLLOWING DIAGNOSIS: No Acute Heart Failure - Is this a Heart Failure Patient?: No Plan Time Spent: Less than 30 Minutes
[2019-04-12] MEDS: FAMOTIDINE 20 MG TABLET PO SCH (11:38)
[2019-04-12] MEDS: DOCUSATE SODIUM 100 MG CAPSULE PO SCH (11:38)
[2019-04-12] MEDS: ENOXAPARIN SODIUM INJ 30 MG/0.3 ML DISP.SYRIN SUBCUT SCH (11:40)
[2019-04-12] MEDS: METOPROLOL TARTRATE 50 MG TABLET PO SCH (11:41)
[2019-04-12] MEDS: LISINOPRIL 10 MG TABLET PO SCH (11:42)
== END 2019-04-12 12:27 | disposition home health service (06) | DRG 565 ==
LOC: ER 14:33 → EH 16:06 → 5 18:38
PROVIDERS: ADMIT Internal Medicine; ATTEND Internal Medicine
PROC: 3E10X8Z Irrigation of Skin and Mucous Membranes using Irrigating Substance (ICD-10-PCS; 2019-04-07)
PROC: 0Y9H00Z Drainage of Right Lower Leg with Drainage Device, Open Approach (ICD-10-PCS; 2019-04-07)
PROC: 0HQKXZZ Repair Right Lower Leg Skin, External Approach (ICD-10-PCS; principal; 2019-04-07 16:45)
PROC: 30233N1 Transfusion of Nonautologous Red Blood Cells into Peripheral Vein, Percutaneous Approach (ICD-10-PCS; 2019-04-08)
DX: T87.81 Dehiscence of amputation stump (principal); D62 Acute posthemorrhagic anemia; I10 Essential (primary) hypertension; E11.51 Type 2 diabetes mellitus with diabetic peripheral angiopathy without gangrene; K21.9 Gastro-esophageal reflux disease without esophagitis; E78.5 Hyperlipidemia, unspecified; F10.20 Alcohol dependence, uncomplicated; F17.200 Nicotine dependence, unspecified, uncomplicated; W05.0XXA Fall from non-moving wheelchair, initial encounter; Y92.009 Unspecified place in unspecified non-institutional (private) residence as the place of occurrence of the external cause; Z83.3 Family history of diabetes mellitus; Z82.49 Family history of ischemic heart disease and other diseases of the circulatory system; Z89.412 Acquired absence of left great toe; Z89.511 Acquired absence of right leg below knee
CPT/HCPCS: 00300; 36415; 36430; 80048; 80053; 82962; 83036; 83735; 85025; 85027; 85610; 85730; 86850; 86900; 86901; 86920; 93005; 93010; 96365; 96375; 99284; J0360; J0690; J1170; J1650; J1885; J2250; J2405; J2704; J2765; J3010; J3490; J7030; J7050; J7060; P9016; S0028

== ENCOUNTER 2020-01-23 17:42 | Inpatient (IN) | payer MEDICARE, MEDICAID ==
[2020-01-23 18:12] LABS: VENOUS BLOOD BASE EXCESS -6.1 mmol/L; VENOUS BLOOD HCO3 21.2 mmol/L (20-32); VENOUS BLOOD PCO2 47.9 mmHg (35-63); VENOUS BLOOD PH 7.26 (7.30-7.42)
[2020-01-23 18:14] LABS: HEMATOCRIT 26.7 % (37.9-51.0); HEMOGLOBIN 8.7 g/dL (13.5-17.0); MEAN CORPUSCULAR HEMOGLOBIN 26.6 pg (27.0-33.4); MEAN CORPUSCULAR HGB CONC 32.6 g/dL (32.0-36.0); MEAN CORPUSCULAR VOLUME 82 fl (80-97); PLATELET COUNT 489 10^3/uL (150-450); RED BLOOD COUNT 3.27 10^6/uL (4.35-5.55); RED CELL DISTRIBUTION WIDTH 14.4 % (11.5-14.0)
[2020-01-23 18:28] LABS: WHITE BLOOD COUNT 30.2 10^3/uL (4.0-10.5)
[2020-01-23 18:29] LABS: ALBUMIN 2.9 g/dL (3.5-5.0); ALKALINE PHOSPHATASE 109 U/L (38-126); ANION GAP 8 (5-19); ASPARTATE AMINO TRANSFERASE 20 U/L (17-59); BILIRUBIN,TOTAL 0.3 mg/dL (0.2-1.3); BLOOD UREA NITROGEN 47 mg/dL (7-20); CALCIUM 7.8 mg/dL (8.4-10.2); CARBON DIOXIDE 22 mmol/L (22-30); CHLORIDE 106 mmol/L (98-107); GLUCOSE 207 mg/dL (75-110); POTASSIUM 5.8 mmol/L (3.6-5.0); TOTAL PROTEIN 7.5 g/dL (6.3-8.2)
[2020-01-23 18:34] LABS: ABSOLUTE LYMPHOCYTES# (MANUAL) 1.5 10^3/uL (0.5-4.7); ABSOLUTE MONOCYTES # (MANUAL) 0.6 10^3/uL (0.1-1.4); BASOPHILS % (MANUAL) 0 % (0-2); EOSINOPHILS % (MANUAL) 0 % (0-6); LYMPHOCYTES % (MANUAL) 5 % (13-45); MONOCYTES % (MANUAL) 2 % (3-13); SEGMENTED NEUTROPHILS % (MAN) 93 % (42-78); TOTAL CELLS COUNTED 100
[2020-01-23 18:35] LABS: ANISOCYTOSIS SLIGHT
[2020-01-23] MEDS ORDERED: AZITHROMYCIN INJ 500 MG VIAL IV ONE (18:35)
[2020-01-23] MEDS ORDERED: CEFTRIAXONE INJ 1000 MG VIAL IV ONE (18:35)
[2020-01-23 18:36] LABS: PLATELET COMMENT ADEQUATE
[2020-01-23] MEDS ORDERED: NORMAL SALINE 1000 ML 1,000 ML IV ONE (18:37)
--- NOTE | 2020-01-23 18:37 | RADIOLOGY REPORT (SQ) ---
EXAM DESCRIPTION: CHEST SINGLE VIEW IMAGES COMPLETED DATE/TIME: 01/23/2020 6:16 pm REASON FOR STUDY: shortness of breath COMPARISON: 11/12/2013 EXAM PARAMETERS: NUMBER OF VIEWS: One view. TECHNIQUE: Single frontal radiographic view of the chest acquired. RADIATION DOSE: NA LIMITATIONS: None. FINDINGS: LUNGS AND PLEURA: An opacity is identified in the right perihilar--right upper lung zone, may represent pneumonia. The left lung is stable in appearance. No pneumothorax. Very small bilat eral pleural effusions. Prominence of the interstitial markings at the lung bases may represent inte rstitial edema. MEDIASTINUM AND HILAR STRUCTURES: No masses. Contour normal. HEART AND VASCULAR STRUCTURES: Cardiomegaly. Mild pulmonary vascular congestion. BONES: No acute findings. HARDWARE: None in the chest. OTHER: No other significant finding. IMPRESSION: 1. Cardiomegaly and mild pulmonary vascular congestion. Small bilateral pleural effusi ons and interstitial edema changes in at the lung bases. 2. Right perihilar--right upper lung zone opacity, may be on the basis of pneumonia. Correlation wi history suggested and short-term follow-up examination to exclude any other underlying pathology. TECHNICAL DOCUMENTATION: JOB ID: [id number] 2010 [employer]- All Rights Reserved Reading location - IP/workstation name: [email or web address]
[2020-01-23] MEDS ORDERED: SODIUM POLYSTYRENE SULFONATE 15 GM/60 ML NG ONE (18:38)
[2020-01-23] MEDS ORDERED: INSULIN REG, HUMAN 100 UNIT/ML 3 ML VIAL (PYX) IV ONE (18:38)
[2020-01-23] MEDS ORDERED: CALCIUM GLUCONATE 1000 MG/10 ML INJ IV ONE (18:38)
--- NOTE | 2020-01-23 18:45 | ER Document Report ---
ED General - General Chief Complaint: Shortness Of Breath Stated Complaint: SHORTNESS OF BREATH Time Seen by Provider: 01/23/20 18:14 Primary Care Provider: ALHAJI VILLALBA MD [Primary Care Provider] - Follow up as needed TRAVEL OUTSIDE OF THE [place] IN LAST 30 DAYS: No - HPI Notes: Chief complaint: Shortness of breath HPI: 64-year-old male with history of diabetes mellitus type [address] Ryne berkowitz presents with 3-day history of increasing shortness of breath and intermittent subjective fever. No sputum production. Denies prior breathing difficulties. Non-smoker. Denies known COVID exposure or recent travel. No chest pain. No vomiting. - Related Data Allergies/Adverse Reactions: No Known Allergies Allergy (Verified 04/07/19 14:38) Past Medical History - General Information source: Patient - Social History Smoking Status: Former Smoker Frequency of alcohol use: None Lives with: Family Family History: DM, Hypertension - Past Medical History Cardiac Medical History: Reports: Hx Hypercholesterolemia, Hx Hypertension - medicated Denies: Hx Coronary Artery Disease, Hx Heart Attack Pulmonary Medical History: Denies: Hx Asthma, Hx COPD, Hx Tuberculosis Neurological Medical History: Denies: Hx Cerebrovascular Accident, Hx Seizures Endocrine Medical History: Reports: Hx Diabetes Mellitus Type 2. Denies: Hx Diabetes Mellitus Type 1, Hx Hyperthyroidism, Hx Hypothyroidism Renal/ Medical History: Denies: Hx Peritoneal Dialysis GI Medical History: Reports: Hx Gastroesophageal Reflux Disease. Denies: Hx Cirrhosis, Hx Crohn's Disease, Hx Hepatitis, Hx Hiatal Hernia, Hx Ulcer, Hx Ulce rative Colitis Musculoskeletal Medical History: Denies Hx Arthritis, Denies Hx Fibromyalgia, Denies Hx Gout Skin Medical History: Denies Hx Eczema, Denies Hx Psoriasis Infectious Medical History: Denies: Hx Hepatitis Past Surgical History: Reports: Hx Cholecystectomy, Hx Orthopedic Surgery - Right transmetatarsal amputation, left great toe amputation, Other - Previous right BKA. Denies: Hx Open Heart Surgery, Hx Pacemaker - Immunizations Hx Diphtheria, Pertussis, Tetanus Vaccination: Yes Hx Pneumococcal Vaccination: 04/05/11 Review of Systems - Review of Systems Notes: Constitutional: As per HPI. HENT: Negative for sore throat. Eyes: Negative for visual changes. Cardiovascular: Negative for chest pain. Respiratory: As per HPI. Gastrointestinal: Negative for abdominal pain, vomiting or diarrhea. Genitourinary: Negative for dysuria. Musculoskeletal: Negative for back pain. Skin: Negative for rash. Neurological: Negative for headaches, weakness or numbness. 10 point ROS negative except as marked above and in HPI. Physical Exam - Vital signs Vitals: Resp Pulse Ox 35 H 94 01/23/20 17:43 01/23/20 17:43 - Notes Notes: GENERAL: Elderly man with dry cough who appears moderately dyspneic. O2 saturation is 94% on 2 L of nasal O2 SKIN: Good turgor no rashes. HEAD: Normocephalic atraumatic. EYES: PERRLA. EOMI. Conjunctivae and sclerae clear. EARS: CANALS AND TMS CLEAR. NOSE: CLEAR. MOUTH: Moist mucosa. Good dentition. No stridor or edema. No drooling. NECK: Supple. No masses or thyromegaly. No adenopathy. Carotids 2+ without bruits. No JVD. BACK: Symmetrical without tenderness. CHEST: Mild use of accessory muscles. Patient has coarse rhonchi right greater than left and rattling cough . HEART: Regular rhythm. No murmur gallop or rub. ABDOMEN: Soft nontender without masses, organomegaly or rebound. Bowel sounds normally active. No bruits. GENITALIA: Deferred. EXTREMITIES: Old BKA on right. 1+ pretibial edema and chronic venous stasis changes left lower leg. No calf tenderness. Cap refill less than 1.5 seconds. Dorsalis pedis and posterior tibial pulses 3+ and symmetrical. NEUROLOGICAL: GCS 15. Alert and oriented x3. Normal gait. Fluent speech. Cranial nerves II through XII intact. Sensorimotor and cerebellar normal. Normal tone. PSYCHIATRIC: Anxious affect. Course - Re-evaluation Re-evalutation: 01/23/20 18:49 Chest x-ray shows a patchy infiltrate right lung and some minor infiltrate both bases with questionable small pleural effusions. White count is markedly elevated at 30,000. The lactate level is 1.6. Patient has a creatinine of 2.3 which is up from his usual baseline and also has potassium of 5.8. In summary he has a pneumonia and evidence of acute kidney injury. I have drawn blood cultures and empirically treated him with Rocephin and azithromycin IV. We will also address his hyperkalemia with IV calcium gluconate, IV glucose and insulin patient will require admission. Rapid COVID test has been requested. And oral Kayexalate. 01/23/20 19:29 Blood pressure is elevated around 196/100. I am going to start him on some Nitropaste for this. Findings are discussed with on-call hospitalist Dr. Parish Molina who will admit to [facility]. - Vital Signs Vital signs: Temp Pulse Resp BP Pulse Ox 98 F 26 H 196/109 H 93 01/23/20 17:45 01/23/20 19:00 01/23/20 18:01 01/23/20 19:00 - Laboratory Result Diagrams: 01/23/20 17:46 01/23/20 17:46 Laboratory results interpreted by me: 01/23/20 01/23/20 01/23/20 17:46 17:46 17:46 WBC 30.2 H* RBC 3.27 L Hgb 8.7 L Hct 26.7 L MCH 26.6 L RDW 14.4 H Plt Count 489 H Seg Neuts % (Manual) 93 H Lymphocytes % (Manual) 5 L Monocytes % (Manual) 2 L Abs Neuts (Manual) 28.1 H VBG pH 7.26 L Sodium 136.4 L Potassium 5.8 H BUN 47 H Creatinine 2.85 H Est GFR ( Amer) 27 L Est GFR (MDRD) Non-Af 22 L Glucose 207 H Calcium 7.8 L Albumin 2.9 L - Diagnostic Test Radiology reviewed: Reports reviewed - EKG Interpretation by Me Additional EKG results interpreted by me: 01/23/20 18:55 Twelve-lead EKG from 1740 hrs. reviewed contemporaneously by me showing sinus tachycardia with a rate of 101 and occasional PVCs. Intervals are normal QRS axis is +47 degrees. There is some mild peaking of the T waves. There is no acute ST T wave change appreciated. 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 insulin use status Diabetes mellitus complication status: with other specified complication Qualified Code(s): E11.69 - Type 2 diabetes mellitus with other specified complication Leukocytosis Qualifiers: Leukocytosis type: unspecified Qualified Code(s): D72.829 - Elevated white blood cell count, unspecified Hypertension Qualifiers: Hypertension type: essential hypertension Qualified Code(s): I10 - Essential (primary) hypertension Condition: Serious Disposition: ADMITTED INPATIENT Admitting Provider: Jsese (Hospitalist) Unit Admitted: IMCU Referrals: ALHAJI VILLALBA MD [Primary Care Provider] - Follow up as needed
[2020-01-23] MEDS ORDERED: SODIUM POLYSTYRENE SULFONATE 15 GM/60 ML ONE (19:11)
[2020-01-23] MEDS ORDERED: NITROGLYCERIN 2% OINTMENT 1 GM PACKET TP ONE (19:28)
[2020-01-23] MEDS ORDERED: HEPARIN SOD (PORCINE) 5,000 UNIT/ML 1 ML VIAL SUBCUT SCH (19:30)
[2020-01-23 19:35] LABS: ARTERIAL BLOOD BASE EXCESS -2.8 mmol/L; ARTERIAL BLOOD H2CO3 1.08 mmol/L (1.05-1.35); ARTERIAL BLOOD HCO3 21.6 mmol/L (20-24); ARTERIAL BLOOD O2 SATURATION 93.5 % (94-98); ARTERIAL BLOOD PCO2 35.8 mmHg (35-45); ARTERIAL BLOOD TOTAL CO2 22.7 mmol/L (23-27)
[2020-01-23 19:37] LABS: ARTERIAL BLOOD FIO2 2L
[2020-01-23] MEDS ORDERED: DEXTROSE 40% GEL 15 GM TUBE PO PRN ×2 (19:49)
[2020-01-23] MEDS ORDERED: DEXTROSE 50%-WATER 25 GM/50 ML DISP.SYRIN IV PRN ×2 (19:49)
[2020-01-23] MEDS ORDERED: GLUCAGON,HUMAN RECOMB 1 MG INJ IM PRN (19:49)
[2020-01-23] MEDS ORDERED: METOPROLOL TARTRATE PF/INJ 5 MG/5 ML SDV IV PRN (20:00)
[2020-01-23 20:23] LABS: ABSOLUTE RETICS # 0.038 10^6/uL (0.028-0.122); RETICULOCYTE COUNT (AUTO) 1.34 % (0.66-2.85)
[2020-01-23] MEDS ORDERED: ENALAPRILAT DIHYDRATE INJ/PF 1.25 MG/1 ML SDV IV PRN (20:29)
[2020-01-23] MEDS ORDERED: HEPARIN SOD (PORCINE) 1,000 UNIT/ML 10 ML VIAL IV ONE (20:30)
[2020-01-23 20:34] LABS: HEMATOCRIT 22.8 % (37.9-51.0); MEAN CORPUSCULAR HEMOGLOBIN 26.4 pg (27.0-33.4); MEAN CORPUSCULAR HGB CONC 32.6 g/dL (32.0-36.0); MEAN CORPUSCULAR VOLUME 81 fl (80-97); PLATELET COUNT 415 10^3/uL (150-450); RED BLOOD COUNT 2.81 10^6/uL (4.35-5.55); WHITE BLOOD COUNT 29.5 10^3/uL (4.0-10.5)
[2020-01-23 20:43] LABS: INTERNATIONAL RATION (INR) 1.35; PROTHROMBIN TIME 16.8 SEC (11.4-15.4)
[2020-01-23 20:44] LABS: PARTIAL THROMBOPLASTIN TIME 40.5 SEC (23.5-35.8)
[2020-01-23 20:52] LABS: CREATINE KINASE 79 U/L (55-170); IRON(TIBC) 15.1 ug/dL (49-181)
[2020-01-23 20:55] LABS: ABSOLUTE LYMPHOCYTES# (MANUAL) 2.4 10^3/uL (0.5-4.7); ABSOLUTE MONOCYTES # (MANUAL) 1.2 10^3/uL (0.1-1.4); BASOPHILS % (MANUAL) 0 % (0-2); EOSINOPHILS % (MANUAL) 0 % (0-6); LYMPHOCYTES % (MANUAL) 8 % (13-45); MONOCYTES % (MANUAL) 4 % (3-13); SEGMENTED NEUTROPHILS % (MAN) 88 % (42-78); TOTAL CELLS COUNTED 100
[2020-01-23 20:56] LABS: ANISOCYTOSIS SLIGHT; PLATELET COMMENT ADEQUATE
[2020-01-23] MEDS: ASCORBIC ACID 500 MG TABLET PO SCH (20:57)
[2020-01-23] MEDS: ASPIRIN 325 MG TABLET PO SCH (20:57)
[2020-01-23 21:01] LABS: HEMOGLOBIN 7.4 g/dL (13.5-17.0)
[2020-01-23 21:05] LABS: C-REACTIVE PROTEIN 155.6 mg/L (<10.0)
[2020-01-23] MEDS: HEPARIN SODIUM,PORCINE/D5W 25,000 UNIT/250 ML RTUINJ IV PRN (21:09)
[2020-01-23 21:57] LABS: FOLATE 7.32 ng/mL (>2.76)
[2020-01-23] MEDS ORDERED: LACTULOSE SYRUP 20 GM/30 ML UDCUP PO ONE (22:15)
[2020-01-23 22:17] LABS: CREATINE KINASE MB 1.44 ng/mL (<4.55); TROPONIN I 0.137 ng/mL
--- NOTE | 2020-01-23 22:33 | EKG REPORT ---
SEVERITY:- OTHERWISE NORMAL ECG - SINUS TACHYCARDIA : Confirmed by: Yael Grant MD 23-Jan-2020 22:32:51
[2020-01-23] MEDS: ZINC SULFATE 220 MG CAPSULE PO SCH (22:48)
[2020-01-23] MEDS: ATORVASTATIN CALCIUM 80 MG TABLET PO SCH (23:17)
[2020-01-23] MEDS ORDERED: HEPARIN SOD (PORCINE) 1,000 UNIT/ML 10 ML VIAL IV PRN (23:19)
[2020-01-23 23:36] LABS: A TYPE INFLUENZA AG NEGATIVE (NEGATIVE); B INFLUENZA AG NEGATIVE (NEGATIVE)
[2020-01-23] MEDS ORDERED: METOPROLOL TARTRATE PF/INJ 5 MG/5 ML SDV IV ONE (23:53)
[2020-01-23 23:59] LABS: APPEARANCE,URINE TURBID; BILIRUBIN,URINE NEGATIVE (NEGATIVE); COLOR,URINE AMBER; GLUCOSE, URINE 50 mg/dL (NEGATIVE); KETONES,URINE NEGATIVE (NEGATIVE); LEUKOCYTE ESTERASE,URINE MODERATE (NEGATIVE); NITRITE,URINE NEGATIVE (NEGATIVE); PROTEIN,URINE >=500 mg/dL (NEGATIVE); URINE SPECIFIC GRAVITY 1.024; UROBILINOGEN,URINE NEGATIVE mg/dL (<2.0)
[2020-01-24] MEDS: HYDRALAZINE HCL INJ/PF 20 MG/1 ML SDV IV PRN ×3 (00:01→17:09)
[2020-01-24 02:54] LABS: ANION GAP 11 (5-19); BLOOD UREA NITROGEN 54 mg/dL (7-20); CALCIUM 7.4 mg/dL (8.4-10.2); CARBON DIOXIDE 18 mmol/L (22-30); CHLORIDE 109 mmol/L (98-107); CREATINE KINASE 76 U/L (55-170); GLUCOSE 167 mg/dL (75-110); POTASSIUM 5.3 mmol/L (3.6-5.0)
[2020-01-24 02:57] LABS: HEMATOCRIT 21.8 % (37.9-51.0); MEAN CORPUSCULAR HEMOGLOBIN 26.3 pg (27.0-33.4); MEAN CORPUSCULAR HGB CONC 32.8 g/dL (32.0-36.0); MEAN CORPUSCULAR VOLUME 80 fl (80-97); PLATELET COUNT 381 10^3/uL (150-450); RED BLOOD COUNT 2.72 10^6/uL (4.35-5.55); RED CELL DISTRIBUTION WIDTH 14.1 % (11.5-14.0)
[2020-01-24 03:01] LABS: WHITE BLOOD COUNT 31.6 10^3/uL (4.0-10.5)
[2020-01-24 03:03] LABS: HEMOGLOBIN 7.2 g/dL (13.5-17.0)
[2020-01-24 03:17] LABS: ABSOLUTE LYMPHOCYTES# (MANUAL) 1.3 10^3/uL (0.5-4.7); ABSOLUTE MONOCYTES # (MANUAL) 1.3 10^3/uL (0.1-1.4); ANISOCYTOSIS SLIGHT; BAND NEUTROPHILS % (MANUAL) 2 % (3-5); BASOPHILS % (MANUAL) 0 % (0-2); EOSINOPHILS % (MANUAL) 0 % (0-6); LYMPHOCYTES % (MANUAL) 4 % (13-45); MONOCYTES % (MANUAL) 4 % (3-13); SEGMENTED NEUTROPHILS % (MAN) 90 % (42-78); TOTAL CELLS COUNTED 100
[2020-01-24 03:18] LABS: PLATELET COMMENT ADEQUATE
[2020-01-24 03:25] LABS: CREATINE KINASE MB 1.6 ng/mL (<4.55)
[2020-01-24 03:32] LABS: TROPONIN I 0.151 ng/mL
[2020-01-24] MEDS: HEPARIN SODIUM,PORCINE/D5W 25,000 UNIT/250 ML RTUINJ IV PRN ×3 (03:54→13:41)
[2020-01-24] MEDS: ACETAMINOPHEN 325 MG TABLET PO PRN (04:19)
[2020-01-24] MEDS ORDERED: IRON SUCROSE COMPLEX INJ/PF 100 MG/5 ML SDV IV ONE (04:31)
--- NOTE | 2020-01-24 05:59 | PDOC H&P ---
History of Present Illness Admission Date/PCP: 01/23/20 19:42 ALHAJI VILLALBA MD Patient complains of: Shortness of breath and cough History of Present Illness: ANIYAH ARRIAGA is a 64 year old male with a past medical history of tobacco dependence, hypertension, dyslipidemia, alcohol dependence, insulin-dependent diabetes, peripheral vascular disease with right AKA and left great toe amputation. He presents with 3 days of intermittently productive cough, subjective fever and shortness of breath prompting evaluation emergency room where he is found to have leukocytosis of 30,000, lymphopenia, tachypnea of 30, systolic hypertension of 190. He receives treatment for community-acquired pneumonia with Rocephin and azithromycin and referred to the hospitalist for admission. Patient does not know of any infectious contacts or risk for COVID- 19 however he resides with his son works daily on [employer]. Patient denies recent change in medication regiment. Past Medical History Cardiac Medical History: Reports: Hyperlipidema, Hypertension - medicated Denies: Coronary Artery Disease, Myocardial Infarction Pulmonary Medical History: Denies: Asthma, Chronic Obstructive Pulmonary Disease (COPD), Tuberculosis Neurological Medical History: Denies: Seizures Endocrine Medical History: Reports: Diabetes Mellitus Type 2 Denies: Diabetes Mellitus Type 1, Hyperthyroidism, Hypothyroidism GI Medical History: Reports: Gastroesophageal Reflux Disease Denies: Cirrhosis, Crohn's Disease, Hepatitis, Hiatal Hernia, Ulcerative Colitis Musculoskeltal Medical History: Denies: Arthritis, Fibromyalgia, Gout Skin Medical History: Denies: Eczema, Psoriasis Psychiatric Medical History: Denies: Depression Hematology: Denies: Anemia, Sickle Cell Disease, Bleeding Tendencies Past Surgical History Past Surgical History: Reports: Cholecystectomy, Orthopedic Surgery - Right transmetatarsal amputation, left great toe amputation, Other - Previous right BKA Denies: Pacemaker Social History Information Source: Patient, [facility] Records Lives with: Family Smoking Status: Former Smoker Frequency of Alcohol Use: None Amount of Alcoholic Beverages Per Day: Former heavy drinker Hx Recreational Drug Use: Yes Drugs: Marijuana Hx Prescription Drug Abuse: No - Advance Directive Resuscitation Status: Full Code Family History Family History: DM, Hypertension Parental Family History Reviewed: Yes Children Family History Reviewed: Yes Sibling(s) Family History Reviewed.: Yes Medication/Allergy Allergies/Adverse Reactions: No Known Allergies Allergy (Verified 04/07/19 14:38) Review of Systems Constitutional: ABSENT: chills, fever(s), headache(s), weight gain, weight loss Eyes: ABSENT: visual disturbances Ears: ABSENT: hearing changes Cardiovascular: ABSENT: chest pain, dyspnea on exertion, edema, orthropnea, palpitations Respiratory: ABSENT: cough, hemoptysis Gastrointestinal: ABSENT: abdominal pain, constipation, diarrhea, hematemesis, hematochezia, nausea, vomiting Genitourinary: ABSENT: dysuria, hematuria Musculoskeletal: ABSENT: joint swelling Integumentary: ABSENT: rash, wounds Neurological: ABSENT: abnormal gait, abnormal speech, confusion, dizziness, focal weakness, syncope Psychiatric: ABSENT: anxiety, depression, homidical ideation, suicidal ideation Endocrine: ABSENT: cold intolerance, heat intolerance, polydipsia, polyuria Hematologic/Lymphatic: ABSENT: easy bleeding, easy bruising Physical Exam Vital Signs: Temp Pulse Resp BP Pulse Ox 99.4 F 79 24 H 165/95 H 94 01/24/20 02:45 01/24/20 04:19 01/24/20 01:50 01/24/20 04:38 01/24/20 01:50 Intake & Output 01/22/20 01/23/20 01/24/20 11:59 11:59 11:59 Intake Total 1062 Balance 1062 Weight 83 kg General appearance: PRESENT: disheveled, severe distress, well-developed, well- nourished. ABSENT: cooperative Head exam: PRESENT: atraumatic, normocephalic Eye exam: PRESENT: conjunctiva pink, EOMI, PERRLA. ABSENT: scleral icterus Ear exam: PRESENT: normal external ear exam Mouth exam: PRESENT: moist, tongue midline Neck exam: ABSENT: carotid bruit, JVD, lymphadenopathy, thyromegaly Respiratory exam: PRESENT: accessory muscle use, decreased breath sounds, prolonged expiratory phas, rales, retraction, rhonchi, symmetrical, tachypnea. ABSENT: wheezes Cardiovascular exam: PRESENT: RRR. ABSENT: diastolic murmur, rubs, systolic murmur Pulses: PRESENT: normal dorsalis pedis pul Vascular exam: PRESENT: normal capillary refill GI/Abdominal exam: PRESENT: normal bowel sounds, soft. ABSENT: distended, guarding, mass, organolmegaly, rebound, tenderness Rectal exam: PRESENT: deferred Extremities exam: PRESENT: full ROM. ABSENT: calf tenderness, clubbing, pedal edema Neurological exam: PRESENT: alert, awake, oriented to person, oriented to place, oriented to time, oriented to situation, CN II-XII grossly intact. ABSENT: motor sensory deficit Psychiatric exam: PRESENT: appropriate affect, normal mood. ABSENT: homicidal ideation, suicidal ideation Skin exam: PRESENT: dry, intact, warm. ABSENT: cyanosis, rash Results Laboratory Results: 01/24/20 02:30 01/24/20 02:30 01/23/20 01/23/20 01/23/20 17:46 17:46 17:46 WBC 30.2 H* RBC 3.27 L Hgb 8.7 L Hct 26.7 L MCV 82 MCH 26.6 L MCHC 32.6 RDW 14.4 H Plt Count 489 H Seg Neutrophils % Not Reportable Retic Count (auto) Carbonic Acid HCO3/H2CO3 Ratio ABG pH ABG pCO2 ABG pO2 ABG HCO3 ABG O2 Saturation ABG Base Excess VBG pH VBG pCO2 VBG HCO3 VBG Base Excess FiO2 Sodium 136.4 L Potassium 5.8 H Chloride 106 Carbon Dioxide 22 Anion Gap 8 BUN 47 H Creatinine 2.85 H Est GFR ( Amer) 27 L Glucose 207 H Lactic Acid 1.6 Calcium 7.8 L Iron TIBC % Saturation Transferrin Ferritin Total Bilirubin 0.3 AST 20 Alkaline Phosphatase 109 C-Reactive Protein Total Protein 7.5 Albumin 2.9 L Vitamin B12 Folate Urine Color Urine Appearance Urine pH Ur Specific Dante Urine Protein Urine Glucose (UA) Urine Ketones Urine Blood Urine Nitrite Ur Leukocyte Esterase Urine WBC (Auto) Urine RBC (Auto) 01/23/20 01/23/20 01/23/20 17:46 19:18 20:00 WBC RBC Hgb Hct MCV MCH MCHC RDW Plt Count Seg Neutrophils % Retic Count (auto) 1.34 Carbonic Acid 1.08 HCO3/H2CO3 Ratio 20:1 ABG pH 7.40 ABG pCO2 35.8 ABG pO2 67.0 L ABG HCO3 21.6 ABG O2 Saturation 93.5 L ABG Base Excess -2.8 VBG pH 7.26 L VBG pCO2 47.9 VBG HCO3 21.2 VBG Base Excess -6.1 FiO2 2L Sodium Potassium Chloride Carbon Dioxide Anion Gap BUN Creatinine Est GFR ( Amer) Glucose Lactic Acid Calcium Iron TIBC % Saturation Transferrin Ferritin Total Bilirubin AST Alkaline Phosphatase C-Reactive Protein Total Protein Albumin Vitamin B12 Folate Urine Color Urine Appearance Urine pH Ur Specific Dante Urine Protein Urine Glucose (UA) Urine Ketones Urine Blood Urine Nitrite Ur Leukocyte Esterase Urine WBC (Auto) Urine RBC (Auto) 01/23/20 01/23/20 01/23/20 20:00 20:00 20:00 WBC RBC Hgb Hct MCV MCH MCHC RDW Plt Count Seg Neutrophils % Retic Count (auto) Carbonic Acid HCO3/H2CO3 Ratio ABG pH ABG pCO2 ABG pO2 ABG HCO3 ABG O2 Saturation ABG Base Excess VBG pH VBG pCO2 VBG HCO3 VBG Base Excess FiO2 Sodium Potassium Chloride Carbon Dioxide Anion Gap BUN Creatinine Est GFR ( Amer) Glucose Lactic Acid Calcium Iron 15.1 L TIBC 248 L % Saturation 6 Transferrin 175.45 L Ferritin 331.00 Total Bilirubin AST Alkaline Phosphatase C-Reactive Protein 155.6 H Total Protein Albumin Vitamin B12 450.0 Folate 7.32 Urine Color Urine Appearance Urine pH Ur Specific Dante Urine Protein Urine Glucose (UA) Urine Ketones Urine Blood Urine Nitrite Ur Leukocyte Esterase Urine WBC (Auto) Urine RBC (Auto) 01/23/20 01/23/20 01/24/20 20:19 23:41 02:30 WBC 29.5 H RBC 2.81 L Hgb 7.4 L Hct 22.8 L MCV 81 MCH 26.4 L MCHC 32.6 RDW 14.0 Plt Count 415 Seg Neutrophils % Not Reportable Retic Count (auto) Carbonic Acid HCO3/H2CO3 Ratio ABG pH ABG pCO2 ABG pO2 ABG HCO3 ABG O2 Saturation ABG Base Excess VBG pH VBG pCO2 VBG HCO3 VBG Base Excess FiO2 Sodium 138.0 Potassium 5.3 H Chloride 109 H Carbon Dioxide 18 L Anion Gap 11 BUN 54 H Creatinine 2.75 H Est GFR ( Amer) 28 L Glucose 167 H Lactic Acid Calcium 7.4 L Iron TIBC % Saturation Transferrin Ferritin Total Bilirubin AST Alkaline Phosphatase C-Reactive Protein Total Protein Albumin Vitamin B12 Folate Urine Color NEHEMIAS Urine Appearance TURBID Urine pH 5.0 Ur Specific Dante 1.024 Urine Protein >=500 H Urine Glucose (UA) 50 H Urine Ketones NEGATIVE Urine Blood MODERATE H Urine Nitrite NEGATIVE Ur Leukocyte Esterase MODERATE H Urine WBC (Auto) >182 Urine RBC (Auto) 55 01/24/20 01/24/20 02:30 03:59 WBC 31.6 H* RBC 2.72 L Hgb 7.2 L Hct 21.8 L MCV 80 MCH 26.3 L MCHC 32.8 RDW 14.1 H Plt Count 381 Seg Neutrophils % Not Reportable Retic Count (auto) Carbonic Acid HCO3/H2CO3 Ratio ABG pH ABG pCO2 ABG pO2 ABG HCO3 ABG O2 Saturation ABG Base Excess VBG pH VBG pCO2 VBG HCO3 VBG Base Excess FiO2 Sodium Potassium Chloride Carbon Dioxide Anion Gap BUN Creatinine Est GFR ( Amer) Glucose Lactic Acid 0.6 L Calcium Iron TIBC % Saturation Transferrin Ferritin Total Bilirubin AST Alkaline Phosphatase C-Reactive Protein Total Protein Albumin Vitamin B12 Folate Urine Color Urine Appearance Urine pH Ur Specific Dante Urine Protein Urine Glucose (UA) Urine Ketones Urine Blood Urine Nitrite Ur Leukocyte Esterase Urine WBC (Auto) Urine RBC (Auto) 01/23/20 01/23/20 01/23/20 17:46 20:00 20:00 Creatine Kinase 79 CK-MB (CK-2) 1.44 Troponin I 0.124 0.137 NT-Pro-B Natriuret Pep 42117 H 01/24/20 01/24/20 02:30 02:30 Creatine Kinase 76 CK-MB (CK-2) 1.60 Troponin I 0.151 NT-Pro-B Natriuret Pep Impressions: Chest X-Ray 01/23/20 17:57 IMPRESSION: 1. Cardiomegaly and mild pulmonary vascular congestion. Small bilateral pleural effusions and interstitial edema changes in at the lung bases. 2. Right perihilar--right upper lung zone opacity, may be on the basis of pneumonia. Correlation with history suggested and short-term follow-up ex amination to exclude any other underlying pathology. Assessment and Plan - Diagnosis (1) Anemia Qualifiers: Anemia type: iron deficiency Is this a current diagnosis for this admission?: Yes Plan: Likely iron deficient, follow-up anemia studies, (2) Acute kidney injury Is this a current diagnosis for this admission?: Yes Plan: Appears acute, optimize blood pressure and volume, avoid nephrotoxic meds and doses, follow-up chemistry (3) Hyperkalemia Is this a current diagnosis for this admission?: Yes Plan: Likely secondary to hyper glycemia, without peak T waves, Kayexalate, lactulose, follow-up chemistry (4) Hypertension Qualifiers: Hypertension type: essential hypertension Qualified Code(s): I10 - Essential (primary) hypertension Is this a current diagnosis for this admission?: Yes Plan: Lopressor, hydralazine, Vasotec ordered. (5) Pneumonia Qualifiers: Pneumonia type: due to unspecified organism Laterality: unspecified laterality Lung location: unspecified part of lung Qualified Code(s): J18.9 - Pneumonia, unspecified organism Is this a current diagnosis for this admission?: Yes Plan: Likely community-acquired however concern for lymphopenia, follow-up outpatient COVID testing sent to [facility], continue COVID precautions. Follow-up blood and sputum culture. (6) Type 2 diabetes mellitus Qualifiers: Diabetes mellitus halfway insulin use: unspecified manager terminal insulin use status Diabetes mellitus complication status: with other specified complication Qualified Code(s): E11.69 - Type 2 diabetes mellitus with other specified complication Is this a current diagnosis for this admission?: Yes Plan: Humalog sliding scale q. before meals ordered - Time Time Spent with patient: 25-34 minutes
[2020-01-24 08:56] LABS: CREATINE KINASE MB 1.44 ng/mL (<4.55); TROPONIN I 0.124 ng/mL
[2020-01-24] MEDS: INSULIN LISPRO 100 UNIT/ML 3 ML VIAL SUBCUT SCH ×3 (09:01→17:08)
[2020-01-24 10:25] LABS: PATH REVIEW PATHOLOGIST REVIEWED
[2020-01-24] MEDS: ZINC SULFATE 220 MG CAPSULE PO SCH (10:30)
[2020-01-24] MEDS: IPRATROPIUM BROMIDE 0.06% NASAL SPRAY 15 ML NASL SCH ×3 (10:30→17:08)
[2020-01-24] MEDS: ASCORBIC ACID 500 MG TABLET PO SCH ×2 (10:30→17:08)
[2020-01-24] MEDS: ASPIRIN 325 MG TABLET PO SCH (10:30)
[2020-01-24] MEDS: NORMAL SALINE 1000 ML 1,000 ML IV PRN (17:15)
--- NOTE | 2020-01-24 19:15 | PDOC PROGRESS REPORT ---
Subjective Progress Note for:: 01/24/20 Subjective:: No adverse events overnight. Oxygen saturations have been stable in the low 90s on room air. He is trying to tell me that the skin changes in his left lower extremity came up in the past week but they are obviously due to chronic longstanding venous insufficiency. He is complaining some pain in his left shoulder where he fell. Blood pressures remain very difficult to control. Reason For Visit: PNEUMONIA PRESUMED COVID Physical Exam Vital Signs: Temp Pulse Resp BP Pulse Ox 97.6 F 70 20 168/105 H 93 01/24/20 16:00 01/24/20 16:00 01/24/20 16:00 01/24/20 16:00 01/24/20 16:00 Intake & Output 01/23/20 01/24/20 01/25/20 06:59 06:59 06:59 Intake Total 1182 164 Output Total 0 Balance 1182 164 Weight 83 kg General appearance: PRESENT: no acute distress, cooperative, disheveled Mouth exam: PRESENT: dry mucosa, neck supple Teeth exam: PRESENT: poor dentation Respiratory exam: PRESENT: decreased breath sounds, symmetrical, unlabored. ABSENT: accessory muscle use, chest wall tenderness, prolonged expiratory phas, rhonchi, tachypnea, wheezes Cardiovascular exam: PRESENT: RRR, +S1, +S2 Pulses: PRESENT: normal carotid pulses Vascular exam: ABSENT: normal capillary refill - Delayed in left leg GI/Abdominal exam: PRESENT: normal bowel sounds, soft, other - Abdomen is a bit protuberant. ABSENT: distended, guarding, rebound, tenderness Extremities exam: PRESENT: other - He has a right BKA. He is missing the great toe on his left foot and appears to have a Charcot deformity Musculoskeletal exam: PRESENT: deformity - Right BKA, left foot Charcot deformity, left shoulder appears normal but is tender to passive range of motion Neurological exam: PRESENT: awake, oriented to person, oriented to place Psychiatric exam: PRESENT: flat affect Skin exam: PRESENT: other - He has evidence of longstanding chronic venous insufficiency distal to the knee and the left leg Results Laboratory Results: 01/24/20 02:30 01/24/20 02:30 01/23/20 01/23/20 01/23/20 19:18 20:00 20:00 WBC RBC Hgb Hct MCV MCH MCHC RDW Plt Count Seg Neutrophils % Retic Count (auto) 1.34 Carbonic Acid 1.08 HCO3/H2CO3 Ratio 20:1 ABG pH 7.40 ABG pCO2 35.8 ABG pO2 67.0 L ABG HCO3 21.6 ABG O2 Saturation 93.5 L ABG Base Excess -2.8 FiO2 2L Sodium Potassium Chloride Carbon Dioxide Anion Gap BUN Creatinine Est GFR ( Amer) Glucose Lactic Acid Calcium Iron 15.1 L TIBC 248 L % Saturation 6 Transferrin Ferritin 331.00 C-Reactive Protein Vitamin B12 450.0 Folate 7.32 Urine Color Urine Appearance Urine pH Ur Specific [place] Urine Protein Urine Glucose (UA) Urine Ketones Urine Blood Urine Nitrite Ur Leukocyte Esterase Urine WBC (Auto) Urine RBC (Auto) 01/23/20 01/23/20 01/23/20 20:00 20:00 20:19 WBC 29.5 H RBC 2.81 L Hgb 7.4 L Hct 22.8 L MCV 81 MCH 26.4 L MCHC 32.6 RDW 14.0 Plt Count 415 Seg Neutrophils % Not Reportable Retic Count (auto) Carbonic Acid HCO3/H2CO3 Ratio ABG pH ABG pCO2 ABG pO2 ABG HCO3 ABG O2 Saturation ABG Base Excess FiO2 Sodium Potassium Chloride Carbon Dioxide Anion Gap BUN Creatinine Est GFR ( Amer) Glucose Lactic Acid Calcium Iron TIBC % Saturation Transferrin 175.45 L Ferritin C-Reactive Protein 155.6 H Vitamin B12 Folate Urine Color Urine Appearance Urine pH Ur Specific [place] Urine Protein Urine Glucose (UA) Urine Ketones Urine Blood Urine Nitrite Ur Leukocyte Esterase Urine WBC (Auto) Urine RBC (Auto) 01/23/20 01/24/20 01/24/20 23:41 02:30 02:30 WBC 31.6 H* RBC 2.72 L Hgb 7.2 L Hct 21.8 L MCV 80 MCH 26.3 L MCHC 32.8 RDW 14.1 H Plt Count 381 Seg Neutrophils % Not Reportable Retic Count (auto) Carbonic Acid HCO3/H2CO3 Ratio ABG pH ABG pCO2 ABG pO2 ABG HCO3 ABG O2 Saturation ABG Base Excess FiO2 Sodium 138.0 Potassium 5.3 H Chloride 109 H Carbon Dioxide 18 L Anion Gap 11 BUN 54 H Creatinine 2.75 H Est GFR ( Amer) 28 L Glucose 167 H Lactic Acid Calcium 7.4 L Iron TIBC % Saturation Transferrin Ferritin C-Reactive Protein Vitamin B12 Folate Urine Color NEHEMIAS Urine Appearance TURBID Urine pH 5.0 Ur Specific [place] 1.024 Urine Protein >=500 H Urine Glucose (UA) 50 H Urine Ketones NEGATIVE Urine Blood MODERATE H Urine Nitrite NEGATIVE Ur Leukocyte Esterase MODERATE H Urine WBC (Auto) >182 Urine RBC (Auto) 55 01/24/20 03:59 WBC RBC Hgb Hct MCV MCH MCHC RDW Plt Count Seg Neutrophils % Retic Count (auto) Carbonic Acid HCO3/H2CO3 Ratio ABG pH ABG pCO2 ABG pO2 ABG HCO3 ABG O2 Saturation ABG Base Excess FiO2 Sodium Potassium Chloride Carbon Dioxide Anion Gap BUN Creatinine Est GFR ( Amer) Glucose Lactic Acid 0.6 L Calcium Iron TIBC % Saturation Transferrin Ferritin C-Reactive Protein Vitamin B12 Folate Urine Color Urine Appearance Urine pH Ur Specific [place] Urine Protein Urine Glucose (UA) Urine Ketones Urine Blood Urine Nitrite Ur Leukocyte Esterase Urine WBC (Auto) Urine RBC (Auto) 01/23/20 01/23/20 01/23/20 17:46 20:00 20:00 Creatine Kinase 79 CK-MB (CK-2) 1.44 Troponin I 0.124 0.137 NT-Pro-B Natriuret Pep 40718 H 01/24/20 01/24/20 01/24/20 02:30 02:30 08:10 Creatine Kinase 76 59 CK-MB (CK-2) 1.60 Troponin I 0.151 NT-Pro-B Natriuret Pep 01/24/20 08:10 Creatine Kinase CK-MB (CK-2) 1.44 Troponin I 0.124 NT-Pro-B Natriuret Pep Impressions: Chest X-Ray 01/23/20 17:57 IMPRESSION: 1. Cardiomegaly and mild pulmonary vascular congestion. Small bilateral pleural effusions and interstitial edema changes in at the lung bases. 2. Right perihilar--right upper lung zone opacity, may be on the basis of pneumonia. Correlation with history suggested and short-term follow-up examination to exclude any other underlying pathology. Assessment and Plan - Diagnosis (1) Elevated troponin Is this a current diagnosis for this admission?: Yes Plan: These have been stable. I think this is more related to his acute kidney injury rather than acute IA. He is not had any chest pain. I discontinued his heparin drip. (2) Elevated brain natriuretic peptide (BNP) level Is this a current diagnosis for this admission?: Yes Plan: He does not appear dramatically volume overloaded. He did have some pulmonary vascular congestion and small bilateral pleural effusions on chest x-ray. He also had an irregular contour of his heart on his chest x-ray. I have ordered an echocardiogram. (3) Acute kidney injury Is this a current diagnosis for this admission?: Yes Plan: Treating his pneumonia and cautiously hydrating him, monitoring his urine output and respiratory status (4) Anemia Qualifiers: Anemia type: iron deficiency Is this a current diagnosis for this admission?: Yes Plan: Monitoring for need for transfusion (5) Hyperkalemia Is this a current diagnosis for this admission?: Yes Plan: Slightly improved after some fluids (6) Hypertension Qualifiers: Hypertension type: essential hypertension Qualified Code(s): I10 - Essent ial (primary) hypertension Is this a current diagnosis for this admission?: Yes Plan: I have adjusted some of his medications. I stopped his enalapril IV because of his renal function. I started him on some oral Toprol-XL. (7) Pneumonia Qualifiers: Pneumonia type: due to unspecified organism Laterality: bilateral Lung location: lower lobe of lung Qualified Code(s): J18.9 - Pneumonia, unspecified organism Is this a current diagnosis for this admission?: Yes Plan: He did have a leukocytosis and he is coughing up some pretty nasty looking sputum, so were continuing with antibiotics. 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 Chest x-ray did not get a good look at his left shoulder. We will get plain films of the left shoulder to evaluate. - Time Time Spent with patient: 25-34 minutes
--- NOTE | 2020-01-24 21:00 | EKG REPORT ---
SEVERITY:- NORMAL ECG - SINUS RHYTHM : Confirmed by: Yael Grant MD 24-Jan-2020 21:00:01
[2020-01-24] MEDS: METOPROLOL SUCCINATE 25 MG TAB.SR.24H PO SCH (21:11)
[2020-01-24] MEDS: ATORVASTATIN CALCIUM 80 MG TABLET PO SCH (21:11)
--- NOTE | 2020-01-24 21:11 | RADIOLOGY REPORT (SQ) ---
CLINICAL INDICATION: shoulder pain s/p fall. . TECHNIQUE: Single AP upright portable view(s) were obtained of the left shoulder. COMPARISON: None. FINDINGS: No acute displaced fracture is identified of the shoulder. Alignment is anatomic on this single frontal view. No orthogonal plane. Osteoporosis. Chronic rotator cuff injury. Surrounding soft tissues are unremarkable. IMPRESSION: No evidence of acute bony injury to the shoulder.
--- NOTE | 2020-01-24 23:01 | XCELERA REPORT ---
[address] [address] Transthoracic Echocardiogram Report Name: ANIYAH ARRIAGA Age: 64 yrs Gender: Male : 1955 Patient Status: Inpatient Patient Location: ICU^606^A Study Date: 01/24/2020 05:24 PM Height: 68 in Weight: 182 lb BSA: 2.0 m2 Procedure: A two-dimensional transthoracic echocardiogram with color flow and Doppler was performed. The study was technically difficult with many images being suboptimal in quality. Reason For Study: possible chf History: CHF. Ordering Physician: YANIV MENESES Performed By: Cande Asencio Interpretation Summary The left ventricle is normal in size. There is normal left ventricular wall thickness. LV EF is > than 60% Left ventricular systolic function is normal. Doppler measurements suggest impaired left ventricular relaxation, which is associated with grade I/IV or mild diastolic dysfunction The left ventricular wall motion is normal. There is no thrombus. Probably no ASD,VSD,or PFO seen. The right ventricle is not well visualized secondary to technical limitations The right atrium is normal. The left atrium is mildly dilated. There is no evidence of mitral valve prolapse. There is no vegetation seen on the mitral valve. There is no mitral valve stenosis. There is a trace amount of mitral regurgitation There is no aortic valvular vegetation. There is no aortic valve stenosis There is no LVOT obstruction. No aortic regurgitation is present. There is no tricuspid stenosis. There is a trace to mild amount of tricuspid regurgitation There is mild to moderate pulmonary hypertension by echo RVSP is 47 to 52 mm of Hg ,with RA mean of 15 to 20. There is no pulmonic valvular stenosis. There is no pulmonic valvular regurgitation. The aortic root is normal size. The inferior vena cava appeared dilated and decreased < 50% with respiration (RAP 15-20 mmHg) There is no pericardial effusion. MMode/2D Measurements & Calculations RVDd: 3.4 cm LVIDd: 5.2 cm FS: 34.9 % Ao root diam: 3.3 cm IVSd: 1.6 cm LVIDs: 3.4 cm EDV(Teich): 130.3 ml Ao root area: 8.6 cm2 LVPWd: 1.0 cm ESV(Teich): 47.2 ml LA dimension: 4.5 cm EF(Teich): 63.8 % Doppler Measurements & Calculations MV E max olivia: MV P1/2t max olivia: Ao V2 max: LV V1 max P.8 cm/sec 102.6 cm/sec 170.6 cm/sec 6.3 mmHg MV A max olivia: MV P1/2t: 87.1 msec Ao max PG: LV V1 max: 95.8 cm/sec MVA(P1/2t): 2.5 cm2 11.6 mmHg 125.9 cm/sec MV E/A: 0.97 MV dec slope: 345.0 cm/sec2 MV dec time: 0.18 sec PA V2 max: TR max olivia: MV P1/2t-pr_phl: 94.3 cm/sec 281.5 cm/sec 87.1 msec PA max PG: TR max P.7 mmHg 3.6 mmHg Left Ventricle The left ventricle is normal in size. There is normal left ventricular wall thickness. LV EF is > than 60%. Left ventricular systolic function is normal. Doppler measurements suggest impaired left ventricular relaxation, which is associated with grade I/IV or mild diastolic dysfunction. The left ventricular wall motion is normal. There is no thrombus. Probably no ASD,VSD,or PFO seen. Right Ventricle The right ventricle is not well visualized secondary to technical limitations. Atria The right atrium is normal. The left atrium is mildly dilated. Mitral Valve There is no evidence of mitral valve prolapse. There is no vegetation seen on the mitral valve. There is no mitral valve stenosis. There is a trace amount of mitral regurgitation. Aortic Valve There is no aortic valvular vegetation. There is no aortic valve stenosis. There is no LVOT obstruction. No aortic regurgitation is present. Tricuspid Valve There is no tricuspid stenosis. There is a trace to mild amount of tricuspid regurgitation. There is mild to moderate pulmonary hypertension by echo. RVSP is 47 to 52 mm of Hg ,with RA mean of 15 to 20. Pulmonic Valve There is no pulmonic valvular stenosis. There is no pulmonic valvular regurgitation. Great Vessels The aortic root is normal size. The inferior vena cava appeared dilated and decreased < 50% with respiration (RAP 15-20 mmHg). Effusions There is no pericardial effusion. : YANIV MENESES Lakshmi
[2020-01-25] MEDS: HYDRALAZINE HCL INJ/PF 20 MG/1 ML SDV IV PRN ×4 (04:26→23:59)
[2020-01-25] MEDS: NORMAL SALINE 1000 ML 1,000 ML IV PRN ×2 (05:44→22:41)
[2020-01-25] MEDS: METOPROLOL SUCCINATE 25 MG TAB.SR.24H PO SCH ×2 (09:14→22:41)
[2020-01-25] MEDS: ZINC SULFATE 220 MG CAPSULE PO SCH (09:14)
[2020-01-25] MEDS: ASPIRIN 325 MG TABLET PO SCH (09:14)
[2020-01-25] MEDS: ASCORBIC ACID 500 MG TABLET PO SCH ×2 (09:14→17:46)
[2020-01-25] MEDS: INSULIN LISPRO 100 UNIT/ML 3 ML VIAL SUBCUT SCH ×3 (09:15→19:53)
[2020-01-25] MEDS: AMLODIPINE BESYLATE 10 MG TABLET PO SCH (09:16)
[2020-01-25 09:17] LABS: HEMATOCRIT 22.8 % (37.9-51.0); MEAN CORPUSCULAR HEMOGLOBIN 26.3 pg (27.0-33.4); MEAN CORPUSCULAR HGB CONC 32.7 g/dL (32.0-36.0); MEAN CORPUSCULAR VOLUME 80 fl (80-97); PLATELET COUNT 413 10^3/uL (150-450); RED BLOOD COUNT 2.83 10^6/uL (4.35-5.55); RED CELL DISTRIBUTION WIDTH 14.4 % (11.5-14.0); WHITE BLOOD COUNT 18.6 10^3/uL (4.0-10.5)
[2020-01-25 09:20] LABS: HEMOGLOBIN 7.4 g/dL (13.5-17.0)
[2020-01-25] MEDS: TRAMADOL HCL 50 MG TABLET PO PRN ×2 (09:34→19:54)
[2020-01-25] MEDS: IPRATROPIUM BROMIDE 0.06% NASAL SPRAY 15 ML NASL SCH ×3 (09:34→17:46)
[2020-01-25 09:39] LABS: ANION GAP 12 (5-19); BLOOD UREA NITROGEN 54 mg/dL (7-20); CALCIUM 7.6 mg/dL (8.4-10.2); CARBON DIOXIDE 17 mmol/L (22-30); CHLORIDE 108 mmol/L (98-107); GLUCOSE 131 mg/dL (75-110); POTASSIUM 4.4 mmol/L (3.6-5.0)
[2020-01-25] MEDS ORDERED: NORMAL SALINE 250 ML IV PRN ×2 (12:01)
--- NOTE | 2020-01-25 16:50 | PDOC PROGRESS REPORT ---
Subjective Progress Note for:: 01/25/20 Subjective:: No adverse events overnight. He said that he feels like he cannot take a breath but he is got good air movement and he was eating and drinking. He did have a little bit of wheezing on examination that was not there yesterday. His blood pressures have been elevated earlier in the day but seem to have improved somewhat. Reason For Visit: PNEUMONIA PRESUMED COVID Physical Exam Vital Signs: Temp Pulse Resp BP Pulse Ox 97.6 F 70 18 151/77 H 98 01/25/20 16:06 01/25/20 16:06 01/25/20 16:06 01/25/20 16:06 01/25/20 16:06 Intake & Output 01/24/20 01/25/20 01/26/20 06:59 06:59 06:59 Intake Total 1182 1100 0 Output Total 500 425 Balance 1182 600 -425 Weight 83 kg 84.4 kg General appearance: PRESENT: no acute distress, cooperative, disheveled Mouth exam: PRESENT: dry mucosa, neck supple Teeth exam: PRESENT: poor dentation Respiratory exam: PRESENT: decreased breath sounds, symmetrical, faint wheezes, slightly prolonged expiratory phase. ABSENT: accessory muscle use, chest wall tenderness, rhonchi, tachypnea Cardiovascular exam: PRESENT: RRR, +S1, +S2 Pulses: PRESENT: normal carotid pulses Vascular exam: ABSENT: normal capillary refill - Delayed in left leg GI/Abdominal exam: PRESENT: normal bowel sounds, soft, other - Abdomen is a bit protuberant. ABSENT: distended, guarding, rebound, tenderness Extremities exam: PRESENT: other - He has a right BKA. He is missing the great toe on his left foot and appears to have a Charcot deformity Musculoskeletal exam: PRESENT: deformity - Right BKA, left foot Charcot deformity Neurological exam: PRESENT: awake, oriented to person, oriented to place Psychiatric exam: PRESENT: flat affect Skin exam: PRESENT: other - He has evidence of longstanding chronic venous insufficiency distal to the knee of the left leg Results Laboratory Results: 01/25/20 09:05 01/25/20 09:05 01/23/20 01/25/20 01/25/20 17:46 09:05 09:05 WBC 18.6 H RBC 2.83 L Hgb 7.4 L Hct 22.8 L MCV 80 MCH 26.3 L MCHC 32.7 RDW 14.4 H Plt Count 413 Sodium 136.5 L Potassium 4.4 Chloride 108 H Carbon Dioxide 17 L Anion Gap 12 BUN 54 H Creatinine 2.41 H Est GFR ( Amer) 33 L Glucose 131 H Calcium 7.6 L Blood Type A POSITIVE Antibody Screen NEGATIVE 01/23/20 01/23/20 01/23/20 17:46 20:00 20:00 Creatine Kinase 79 CK-MB (CK-2) 1.44 Troponin I 0.124 0.137 NT-Pro-B Natriuret Pep 95120 H 01/24/20 01/24/20 01/24/20 02:30 02:30 08:10 Creatine Kinase 76 59 CK-MB (CK-2) 1.60 Troponin I 0.151 NT-Pro-B Natriuret Pep 01/24/20 08:10 Creatine Kinase CK-MB (CK-2) 1.44 Troponin I 0.124 NT-Pro-B Natriuret Pep Impressions: Chest X-Ray 01/23/20 17:57 IMPRESSION: 1. Cardiomegaly and mild pulmonary vascular congestion. Small bilateral pleural effusions and interstitial edema changes in at the lung bases. 2. Right perihilar--right upper lung zone opacity, may be on the basis of pneumonia. Correlation with history suggested and short-term follow-up examination to exclude any other underlying pathology. Shoulder X-Ray 01/24/20 00:00 IMPRESSION: No evidence of acute bony injury to the shoulder. Assessment and Plan - Diagnosis (1) Elevated troponin Is this a current diagnosis for this admission?: Yes Plan: These have been stable. I think this is more related to his acute kidney injury rather than acute MS. He is not had any chest pain. I discontinued his heparin drip. (2) Elevated brain natriuretic peptide (BNP) level Is this a current diagnosis for this admission?: Yes Plan: He does not appear dramatically volume overloaded. He did have some pulmonary vascular congestion and small bilateral pleural effusions on chest x-ray. He also had an irregular contour of his heart on his chest x-ray. His echocardiogram was only significant for some grade 1 diastolic dysfunction and mild to moderate pulmonary hypertension. I do not think he is in heart failure. (3) Acute kidney injury Is this a current diagnosis for this admission?: Yes Plan: Creatinine is improving with gentle hydration. We will continue cautious IV fluids. (4) Anemia Qualifiers: Anemia type: iron deficiency Is this a current diagnosis for this admission?: Yes Plan: He was complaining of more shortness of breath today, and that his hemoglobin being low I decided to give him a couple units of packed red blood cells to see if this will help some with his breathing. (5) Hyperkalemia Is this a current diagnosis for this admission?: Yes Plan: Resolved (6) Hypertension Qualifiers: Hypertension type: essential hypertension Qualified Code(s): I10 - Essential (primary) hypertension Is this a current diagnosis for this admission?: Yes Plan: I have adjusted some of his medications. I stopped his enalapril IV because of his renal function. I started him on some oral Toprol-XL. I have also added amlodipine. Once his creatinine improves I will resume an ANTONIETA inhibitor. (7) Pneumonia Qualifiers: Pneumonia type: due to unspecified organism Laterality: bilateral Lung location: lower lobe of lung Qualified Code(s): J18.9 - Pneumonia, unspecified organism Is this a current diagnosis for this admission?: Yes Plan: He did have a leukocytosis and he is coughing up some pretty nasty looking sputum, so were continuing with antibiotics. He had a little bit of wheezing today so I added some nebulizer treatments. 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 - Time Time Spent with patient: 25-34 minutes
[2020-01-25] MEDS: ATORVASTATIN CALCIUM 80 MG TABLET PO SCH (22:41)
[2020-01-25] MEDS: ACETAMINOPHEN 325 MG TABLET PO PRN (22:42)
[2020-01-25 23:58] LABS: ABSOLUTE BASOPHILS # (AUTO) 0.1 10^3/uL (0.0-0.2); ABSOLUTE EOSINOPHILS # (AUTO) 0.4 10^3/uL (0.0-0.6); ABSOLUTE LYMPHOCYTES (AUTO) 1.1 10^3/uL (0.5-4.7); ABSOLUTE MONOCYTES (AUTO) 0.9 10^3/uL (0.1-1.4); ABSOLUTE NEUT (AUTO) 11.6 10^3/uL (1.7-8.2); BASOPHILS % (AUTO) 0.5 % (0-2); EOSINOPHILS % (AUTO) 2.9 % (0-6); HEMATOCRIT 27.5 % (37.9-51.0); HEMOGLOBIN 9.1 g/dL (13.5-17.0); LYMPHOCYTES % (AUTO) 7.7 % (13-45); MEAN CORPUSCULAR HGB CONC 33.1 g/dL (32.0-36.0); MEAN CORPUSCULAR VOLUME 82 fl (80-97); MONOCYTES % (AUTO) 6.2 % (3-13); PLATELET COUNT 402 10^3/uL (150-450); RED BLOOD COUNT 3.37 10^6/uL (4.35-5.55); RED CELL DISTRIBUTION WIDTH 14.2 % (11.5-14.0); SEGMENTED NEUTROPHILS % (AUTO) 82.7 % (42-78); TOTAL CELLS COUNTED % (AUTO) 100 %
[2020-01-26] MEDS ORDERED: TRAMADOL HCL 50 MG TABLET PO ONE (01:00)
[2020-01-26] MEDS: TRAMADOL HCL 50 MG TABLET PO PRN ×2 (05:46→19:21)
[2020-01-26 05:52] LABS: HEMATOCRIT 27.4 % (37.9-51.0); HEMOGLOBIN 9.1 g/dL (13.5-17.0); MEAN CORPUSCULAR HGB CONC 33.2 g/dL (32.0-36.0); MEAN CORPUSCULAR VOLUME 82 fl (80-97); PLATELET COUNT 412 10^3/uL (150-450); RED BLOOD COUNT 3.37 10^6/uL (4.35-5.55); RED CELL DISTRIBUTION WIDTH 14.2 % (11.5-14.0); WHITE BLOOD COUNT 12.6 10^3/uL (4.0-10.5)
[2020-01-26 06:12] LABS: ANION GAP 8 (5-19); BLOOD UREA NITROGEN 55 mg/dL (7-20); CALCIUM 7.7 mg/dL (8.4-10.2); CARBON DIOXIDE 18 mmol/L (22-30); CHLORIDE 110 mmol/L (98-107); GLUCOSE 150 mg/dL (75-110); POTASSIUM 4.7 mmol/L (3.6-5.0)
[2020-01-26] MEDS: HYDRALAZINE HCL INJ/PF 20 MG/1 ML SDV IV PRN ×4 (06:44→21:42)
[2020-01-26] MEDS: BENZOCAINE/MENTHOL SORE THROAT LOZENGE BUCCAL PRN ×2 (07:40→19:22)
[2020-01-26] MEDS: INSULIN LISPRO 100 UNIT/ML 3 ML VIAL SUBCUT SCH ×3 (08:58→17:25)
[2020-01-26] MEDS: AMLODIPINE BESYLATE 10 MG TABLET PO SCH (10:13)
[2020-01-26] MEDS: IPRATROPIUM BROMIDE 0.06% NASAL SPRAY 15 ML NASL SCH ×3 (10:13→17:26)
[2020-01-26] MEDS: METOPROLOL SUCCINATE 25 MG TAB.SR.24H PO SCH ×2 (10:13→21:44)
[2020-01-26] MEDS: ASPIRIN 325 MG TABLET PO SCH (10:23)
[2020-01-26] MEDS: ASCORBIC ACID 500 MG TABLET PO SCH ×2 (10:23→17:25)
[2020-01-26] MEDS: ZINC SULFATE 220 MG CAPSULE PO SCH (11:10)
[2020-01-26] MEDS: IPRATROPIUM/ALBUTEROL 0.5-2.5 MG/3 ML AMPUL NEB PRN (11:56)
--- NOTE | 2020-01-26 13:16 | RADIOLOGY REPORT (SQ) ---
EXAM DESCRIPTION: CHEST SINGLE VIEW IMAGES COMPLETED DATE/TIME: 01/26/2020 1:03 pm REASON FOR STUDY: sob COMPARISON: 01/23/2020. EXAM PARAMETERS: NUMBER OF VIEWS: One view. TECHNIQUE: Single frontal radiographic view of the chest acquired. RADIATION DOSE: NA LIMITATIONS: None. FINDINGS: LUNGS AND PLEURA: Bilateral lower lobe infiltrates. Pleural effusions. MEDIASTINUM AND HILAR STRUCTURES: No masses. Contour normal. HEART AND VASCULAR STRUCTURES: Mild cardiomegaly. BONES: No acute findings. HARDWARE: None in the chest. OTHER: No other significant finding. IMPRESSION: BILATERAL LOWER LOBE INFILTRATES CONCERNING FOR PNEUMONIA. SMALL PLEURAL EFFUSIONS. TECHNICAL DOCUMENTATION: JOB ID: [id number] [employer]- All Rights Reserved Reading location - IP/workstation name: [email or web address]
[2020-01-26] MEDS: HEPARIN SOD (PORCINE) 5,000 UNIT/ML 1 ML VIAL SUBCUT SCH ×2 (13:51→21:42)
[2020-01-26] MEDS ORDERED: LOSARTAN POTASSIUM 25 MG TABLET PO SCH (15:45)
--- NOTE | 2020-01-26 15:49 | PDOC PROGRESS REPORT ---
Subjective Progress Note for:: 01/26/20 Subjective:: No adverse events overnight. Blood pressure still not well controlled. Creatinine continues to improve. His appetite is good. He says this morning that he feels like he cannot breathe. He is not been wheezing and is not hypoxic, but he is on oxygen. He says he feels like he cannot take a deep breath. He is not complaining of any chest pain. Reason For Visit: PNEUMONIA PRESUMED COVID Physical Exam Vital Signs: Temp Pulse Resp BP Pulse Ox 97.5 F 69 20 180/84 H 95 01/26/20 10:47 01/26/20 11:59 01/26/20 11:59 01/26/20 10:47 01/26/20 11:59 Intake & Output 01/25/20 01/26/20 01/27/20 06:59 06:59 06:59 Intake Total 1100 2214 360 Output Total 500 1200 Balance 600 1014 360 Weight 84.4 kg 85.4 kg General appearance: PRESENT: no acute distress, cooperative, disheveled Mouth exam: PRESENT: dry mucosa, neck supple Teeth exam: PRESENT: poor dentation Respiratory exam: PRESENT: decreased breath sounds, symmetrical. ABSENT: a ccessory muscle use, chest wall tenderness, rhonchi, tachypnea, wheezing, prolonged expiratory phase Cardiovascular exam: PRESENT: RRR, +S1, +S2 Pulses: PRESENT: normal carotid pulses Vascular exam: ABSENT: normal capillary refill - Delayed in left leg GI/Abdominal exam: PRESENT: normal bowel sounds, soft, other - Abdomen is a bit protuberant. ABSENT: distended, guarding, rebound, tenderness Extremities exam: PRESENT: other - He has a right BKA. He is missing the great toe on his left foot and appears to have a Charcot deformity Musculoskeletal exam: PRESENT: deformity - Right BKA, left foot Charcot deformity Neurological exam: PRESENT: awake, oriented to person, oriented to place Psychiatric exam: PRESENT: flat affect Skin exam: PRESENT: other - He has evidence of longstanding chronic venous insufficiency distal to the knee of the left leg Results Laboratory Results: 01/26/20 04:59 01/26/20 04:59 01/23/20 01/25/20 01/26/20 17:46 23:51 04:59 WBC 14.0 H 12.6 H RBC 3.37 L 3.37 L Hgb 9.1 L 9.1 L Hct 27.5 L 27.4 L MCV 82 82 MCH 27.0 27.0 MCHC 33.1 33.2 RDW 14.2 H 14.2 H Plt Count 402 412 Seg Neutrophils % 82.7 H Sodium Potassium Chloride Carbon Dioxide Anion Gap BUN Creatinine Est GFR ( Amer) Glucose Calcium Blood Type A POSITIVE Antibody Screen NEGATIVE 01/26/20 04:59 WBC RBC Hgb Hct MCV MCH MCHC RDW Plt Count Seg Neutrophils % Sodium 136.2 L Potassium 4.7 Chloride 110 H Carbon Dioxide 18 L Anion Gap 8 BUN 55 H Creatinine 2.08 H Est GFR ( Amer) 39 L Glucose 150 H Calcium 7.7 L Blood Type Antibody Screen 01/23/20 22:25 Throat Throat Culture - Final NORMAL DAVE 01/23/20 01/23/20 01/23/20 17:46 20:00 20:00 Creatine Kinase 79 CK-MB (CK-2) 1.44 Troponin I 0.124 0.137 NT-Pro-B Natriuret Pep 30374 H 01/24/20 01/24/20 01/24/20 02:30 02:30 08:10 Creatine Kinase 76 59 CK-MB (CK-2) 1.60 Troponin I 0.151 NT-Pro-B Natriuret Pep 01/24/20 01/26/20 08:10 12:58 Creatine Kinase CK-MB (CK-2) 1.44 Troponin I 0.124 0.023 NT-Pro-B Natriuret Pep Impressions: Shoulder X-Ray 01/24/20 00:00 IMPRESSION: No evidence of acute bony injury to the shoulder. Chest X-Ray 01/26/20 00:00 IMPRESSION: BILATERAL LOWER LOBE INFILTRATES CONCERNING FOR PNEUMONIA. SMALL PLEURAL EFFUSIONS. Assessment and Plan - Diagnosis (1) Elevated troponin Is this a current diagnosis for this admission?: Yes Plan: These have been stable. I think this is more related to his acute kidney injury rather than acute [place]. He is not had any chest pain. I discontinued his heparin drip. (2) Elevated brain natriuretic peptide (BNP) level Is this a current diagnosis for this admission?: Yes Plan: He does not appear dramatically volume overloaded. He did have some pulmonary vascular congestion and small bilateral pleural effusions on chest x-ray. He also had an irregular contour of his heart on his chest x-ray. His echocardiogram was only significant for some grade 1 diastolic dysfunction and mild to moderate pulmonary hypertension. I do not think he is in heart failure. (3) Acute kidney injury Is this a current diagnosis for this admission?: Yes Plan: Creatinine is improving with gentle hydration. We will continue cautious IV fluids. No signs of volume overload (4) Anemia Qualifiers: Anemia type: iron deficiency Is this a current diagnosis for this admission?: Yes Plan: Blood counts have improved after 2 units of packed red blood cells, he has maintained his hemoglobin overnight (5) Hyperkalemia Is this a current diagnosis for this admission?: Yes Plan: Resolved (6) Hypertension Qualifiers: Hypertension type: essential hypertension Qualified Code(s): I10 - Essential (primary) hypertension Is this a current diagnosis for this admission?: Yes Plan: Still not well controlled. I added Kenyatta (7) Pneumonia Qualifiers: Pneumonia type: due to unspecified organism Laterality: bilateral Lung location: lower lobe of lung Qualified Code(s): J18.9 - Pneumonia, unspecified organism Is this a current diagnosis for this admission?: Yes Plan: He did have a leukocytosis and he is coughing up some pretty nasty looking sputum, so were continuing with antibiotics. I have repeated a chest x-ray today, shows a wedge-shaped infiltrate in the right base. I have ordered a VQ scan to rule out pulmonary embolus. (8) Type 2 diabetes mellitus Qualifiers: Diabetes mellitus nursing home insulin use: unspecified nursing home insulin use status Diabetes mellitus complication status: with other specified complication Qualified Code(s): E11.69 - Type 2 diabetes mellitus with other specified complication Is this a current diagnosis for this admission?: Yes Plan: Blood sugar control is fair (9) Shoulder pain, left Qualifiers: Chronicity: acute Qualified Code(s): M25.512 - Pain in left shoulder Is this a current diagnosis for this admission?: Yes Plan: Plain films were negative for fracture or dislocation. - Time Time Spent with patient: 25-34 minutes
--- NOTE | 2020-01-26 18:55 | RADIOLOGY REPORT (SQ) ---
EXAM DESCRIPTION: NM LUNG PERFUSION SCAN IMAGES COMPLETED DATE/TIME: 01/26/2020 6:35 pm REASON FOR STUDY: dyspnea, hypoxia COMPARISON: Chest x-ray dated 01/26/2020. RADIONUCLIDE AND DOSE: 5.38 millicuries TC-99m MAA The route of agent administration: Intravenous TECHNIQUE: Eight views of the lungs acquired following injection of MAA. LIMITATIONS: None. FINDINGS: PERFUSION: Scattered subsegmental defects in both right and left lower lobes.. OTHER: No other significant finding. IMPRESSION: SCATTERED SUBSEGMENTAL DEFECTS IN BOTH RIGHT AND LEFT LOWER LOBES. THERE ARE CORRESPOND ING FINDINGS ON THE CHEST X-RAY. MAY BE DUE TO UNDERLYING AIRSPACE DISEASE. LOW PROBABILITY FOR PUL MONARY EMBOLISM. TECHNICAL DOCUMENTATION: JOB ID: [id number] 2010 [employer]- All Rights Reserved Reading location - IP/workstation name: [email or web address]
[2020-01-26] MEDS: ATORVASTATIN CALCIUM 80 MG TABLET PO SCH (21:43)
[2020-01-27] MEDS: HYDRALAZINE HCL INJ/PF 20 MG/1 ML SDV IV PRN ×4 (05:32→17:33)
[2020-01-27] MEDS: TRAMADOL HCL 50 MG TABLET PO PRN ×2 (05:33→16:35)
[2020-01-27] MEDS: HEPARIN SOD (PORCINE) 5,000 UNIT/ML 1 ML VIAL SUBCUT SCH ×2 (05:33→13:00)
[2020-01-27 05:51] LABS: HEMATOCRIT 27.8 % (37.9-51.0); HEMOGLOBIN 9.4 g/dL (13.5-17.0); MEAN CORPUSCULAR HEMOGLOBIN 27.4 pg (27.0-33.4); MEAN CORPUSCULAR HGB CONC 33.9 g/dL (32.0-36.0); MEAN CORPUSCULAR VOLUME 81 fl (80-97); PLATELET COUNT 458 10^3/uL (150-450); RED BLOOD COUNT 3.44 10^6/uL (4.35-5.55); RED CELL DISTRIBUTION WIDTH 14.5 % (11.5-14.0); WHITE BLOOD COUNT 12.8 10^3/uL (4.0-10.5)
[2020-01-27 06:17] LABS: ANION GAP 8 (5-19); BLOOD UREA NITROGEN 50 mg/dL (7-20); CARBON DIOXIDE 19 mmol/L (22-30); CHLORIDE 109 mmol/L (98-107); GLUCOSE 138 mg/dL (75-110); POTASSIUM 4.9 mmol/L (3.6-5.0)
[2020-01-27] MEDS: INSULIN LISPRO 100 UNIT/ML 3 ML VIAL SUBCUT SCH ×3 (07:43→16:32)
[2020-01-27] MEDS: PIPERACILLIN SODIUM/TAZOBACTAM 3.375 GM in NORMAL SALINE 100 ML IV SCH ×4 (08:46→23:52)
[2020-01-27] MEDS: PREDNISONE 20 MG TABLET PO SCH ×2 (08:46→09:03)
[2020-01-27] MEDS: CARVEDILOL 12.5 MG TABLET PO SCH ×2 (09:09→21:34)
[2020-01-27] MEDS: AMLODIPINE BESYLATE 10 MG TABLET PO SCH (09:09)
[2020-01-27] MEDS: LOSARTAN POTASSIUM 50 MG TABLET PO SCH (09:09)
[2020-01-27] MEDS: ASPIRIN 325 MG TABLET PO SCH (09:09)
[2020-01-27] MEDS: ASCORBIC ACID 500 MG TABLET PO SCH ×2 (09:09→17:36)
[2020-01-27] MEDS: ZINC SULFATE 220 MG CAPSULE PO SCH (09:09)
[2020-01-27] MEDS: ACETAMINOPHEN 325 MG TABLET PO PRN (09:10)
[2020-01-27] MEDS: IPRATROPIUM BROMIDE 0.06% NASAL SPRAY 15 ML NASL SCH ×3 (09:12→17:38)
[2020-01-27 11:00] LABS: PROTHROMBIN TIME 15.3 SEC (11.4-15.4)
[2020-01-27] MEDS ORDERED: ONDANSETRON HCL INJ/PF 4 MG/2 ML SDV IV PRN (11:44)
--- NOTE | 2020-01-27 12:40 | PDOC PROGRESS REPORT ---
Subjective Progress Note for:: 01/27/20 Subjective:: No adverse events overnight. No fevers. His belly started to swell up yesterday as it was fluids were discontinued. He said decent urine output. He had a VQ scan yesterday it was negative. His blood pressures are persistently elevated despite adjusting his medications. He continues to eat fairly well. Reason For Visit: PNEUMONIA PRESUMED COVID Physical Exam Vital Signs: Temp Pulse Resp BP Pulse Ox 97.7 F 68 19 185/83 H 98 01/27/20 08:00 01/27/20 08:00 01/27/20 08:00 01/27/20 08:00 01/27/20 08:00 Intake & Output 01/26/20 01/27/20 01/28/20 06:59 06:59 06:59 Intake Total 2214 1996 100 Output Total 1200 1250 Balance 1014 746 100 Weight 85.4 kg 86.9 kg General appearance: PRESENT: no acute distress, cooperative, disheveled Mouth exam: PRESENT: dry mucosa, neck supple Teeth exam: PRESENT: poor dentation Respiratory exam: PRESENT: decreased breath sounds, symmetrical. ABSENT: accessory muscle use, chest wall tenderness, rhonchi, tachypnea, wheezing, prolonged expiratory phase Cardiovascular exam: PRESENT: RRR, +S1, +S2 Pulses: PRESENT: normal carotid pulses Vascular exam: ABSENT: normal capillary refill - Delayed in left leg GI/Abdominal exam: PRESENT: normal bowel sounds, soft, distended. ABSENT: guarding, rebound, tenderness Extremities exam: PRESENT: other - He has a right BKA. He is missing the great toe on his left foot and appears to have a Charcot deformity Musculoskeletal exam: PRESENT: deformity - Right BKA, left foot Charcot deformity Neurological exam: PRESENT: awake, oriented to person, oriented to place Psychiatric exam: PRESENT: flat affect Skin exam: PRESENT: other - He has evidence of longstanding chronic venous insufficiency distal to the knee of the left leg Results Laboratory Results: 01/27/20 05:05 01/27/20 05:05 01/27/20 01/27/20 05:05 05:05 WBC 12.8 H RBC 3.44 L Hgb 9.4 L Hct 27.8 L MCV 81 MCH 27.4 MCHC 33.9 RDW 14.5 H Plt Count 458 H Sodium 136.2 L Potassium 4.9 Chloride 109 H Carbon Dioxide 19 L Anion Gap 8 BUN 50 H Creatinine 2.00 H Est GFR ( Amer) 41 L Glucose 138 H Calcium 8.0 L 01/24/20 00:30 Sputum Gram Stain - Final 01/24/20 00:30 Sputum Sputum Culture - Final Haemophilus Influenzae Normal Suellen 01/23/20 22:25 Throat Throat Culture - Final NORMAL SUELLEN 01/23/20 01/23/20 01/23/20 17:46 20:00 20:00 Creatine Kinase 79 CK-MB (CK-2) 1.44 Troponin I 0.124 0.137 NT-Pro-B Natriuret Pep 12593 H 01/24/20 01/24/20 01/24/20 02:30 02:30 08:10 Creatine Kinase 76 59 CK-MB (CK-2) 1.60 Troponin I 0.151 NT-Pro-B Natriuret Pep 01/24/20 01/26/20 08:10 12:58 Creatine Kinase CK-MB (CK-2) 1.44 Troponin I 0.124 0.023 NT-Pro-B Natriuret Pep Impressions: Shoulder X-Ray 01/24/20 00:00 IMPRESSION: No evidence of acute bony injury to the shoulder. Chest X-Ray 01/26/20 00:00 IMPRESSION: BILATERAL LOWER LOBE INFILTRATES CONCERNING FOR PNEUMONIA. SMALL PLEURAL EFFUSIONS. Lung Scan-VQ [place] 01/26/20 00:00 IMPRESSION: SCATTERED SUBSEGMENTAL DEFECTS IN BOTH RIGHT AND LEFT LOWER LOBES. THERE ARE CORRESPONDING FINDINGS ON THE CHEST X-RAY. MAY BE DUE TO UNDERLYING AIRSPACE DISEASE. LOW PROBABILITY FOR PULMONARY EMBOLISM. Assessment and Plan - Diagnosis (1) Elevated troponin Is this a current diagnosis for this admission?: Yes Plan: These have been stable. I think this is more related to his acute kidney injury rather than acute [place]. He is not had any chest pain. I discontinued his heparin drip. (2) Elevated brain natriuretic peptide (BNP) level Is this a current diagnosis for this admission?: Yes Plan: He does not appear dramatically volume overloaded. He did have some pulmonary vascular congestion and small bilateral pleural effusions on chest x-ray. He also had an irregular contour of his heart on his chest x-ray. His echocardiogram was only significant for some grade 1 diastolic dysfunction and mild to moderate pulmonary hypertension. I do not think he is in heart failure. (3) Acute kidney injury Is this a current diagnosis for this admission?: Yes Plan: Creatinine is improved somewhat. Fluids on hold for now due to abdominal distention with suspected ascites (4) Anemia Qualifiers: Anemia type: iron deficiency Is this a current diagnosis for this admission?: Yes Plan: Blood counts have improved after 2 units of packed red blood cells, he has maintained his hemoglobin (5) Hyperkalemia Is this a current diagnosis for this admission?: Yes Plan: Resolved (6) Hypertension Qualifiers: Hypertension type: essential hypertension Qualified Code(s): I10 - Essential (primary) hypertension Is this a current diagnosis for this admission?: Yes Plan: I increased his Cozaar and change his metoprolol to Coreg to try to get better blood pressure control, but he still seems to be having a high pressure. Hoping that if we were able to get some fluid off of his belly that it will help with his venous return and this may in turn decrease his blood pressure. If not, we will have to adjust his medication some more. (7) Pneumonia Qualifiers: Pneumonia type: due to unspecified organism Laterality: bilateral Lung location: lower lobe of lung Qualified Code(s): J18.9 - Pneumonia, unspecified organism Is this a current diagnosis for this admission?: Yes Plan: He did have a leukocytosis and he is coughing up some pretty nasty looking sputum, so were continuing with antibiotics. I have switched him to Zosyn (8) Type 2 diabetes mellitus Qualifiers: Diabetes mellitus custodial insulin use: unspecified ad terminal makeup operator insulin use status Diabetes mellitus complication status: with other specified comp lication Qualified Code(s): E11.69 - Type 2 diabetes mellitus with other specified complication Is this a current diagnosis for this admission?: Yes Plan: Blood sugar control is fair (9) Shoulder pain, left Qualifiers: Chronicity: acute Qualified Code(s): M25.512 - Pain in left shoulder Is this a current diagnosis for this admission?: Yes Plan: Plain films were negative for fracture or dislocation. (10) Abdominal distention, non-gaseous Is this a current diagnosis for this admission?: Yes Plan: Likely from ascites. Have ordered an abdominal ultrasound with therapeutic paracentesis - Time Time Spent with patient: 25-34 minutes
[2020-01-27] MEDS: ATORVASTATIN CALCIUM 80 MG TABLET PO SCH (21:33)
[2020-01-28] MEDS: PIPERACILLIN SODIUM/TAZOBACTAM 3.375 GM in NORMAL SALINE 100 ML IV SCH ×4 (05:15→23:46)
[2020-01-28] MEDS: HYDRALAZINE HCL INJ/PF 20 MG/1 ML SDV IV PRN ×4 (05:15→20:15)
[2020-01-28 05:23] LABS: HEMATOCRIT 27.4 % (37.9-51.0); HEMOGLOBIN 9.3 g/dL (13.5-17.0); MEAN CORPUSCULAR HEMOGLOBIN 27.6 pg (27.0-33.4); MEAN CORPUSCULAR VOLUME 81 fl (80-97); PLATELET COUNT 459 10^3/uL (150-450); RED BLOOD COUNT 3.37 10^6/uL (4.35-5.55); RED CELL DISTRIBUTION WIDTH 14.4 % (11.5-14.0); WHITE BLOOD COUNT 12.2 10^3/uL (4.0-10.5)
[2020-01-28 05:40] LABS: ANION GAP 6 (5-19); BLOOD UREA NITROGEN 53 mg/dL (7-20); CALCIUM 7.7 mg/dL (8.4-10.2); CARBON DIOXIDE 21 mmol/L (22-30); CHLORIDE 109 mmol/L (98-107); GLUCOSE 214 mg/dL (75-110)
[2020-01-28] MEDS: INSULIN LISPRO 100 UNIT/ML 3 ML VIAL SUBCUT SCH ×3 (07:29→16:46)
[2020-01-28] MEDS: ASCORBIC ACID 500 MG TABLET PO SCH ×2 (09:38→17:14)
[2020-01-28] MEDS: LOSARTAN POTASSIUM 50 MG TABLET PO SCH (09:39)
[2020-01-28] MEDS: ZINC SULFATE 220 MG CAPSULE PO SCH (09:39)
[2020-01-28] MEDS: PREDNISONE 20 MG TABLET PO SCH (09:39)
[2020-01-28] MEDS: AMLODIPINE BESYLATE 10 MG TABLET PO SCH (09:39)
[2020-01-28] MEDS: CARVEDILOL 12.5 MG TABLET PO SCH ×2 (09:39→21:18)
[2020-01-28] MEDS: ASPIRIN 325 MG TABLET PO SCH (09:39)
[2020-01-28] MEDS: IPRATROPIUM BROMIDE 0.06% NASAL SPRAY 15 ML NASL SCH ×3 (09:40→17:15)
--- NOTE | 2020-01-28 10:55 | RADIOLOGY REPORT (SQ) ---
EXAM DESCRIPTION: U/S ABDOMEN LIMITED W/O DOP IMAGES COMPLETED DATE/TIME: 01/28/2020 10:44 am REASON FOR STUDY: ascites COMPARISON: None. TECHNIQUE: Limited Static and real time lewis scale imaging performed of the 4 abdominal quadrants an d the midline. LIMITATIONS: None. FINDINGS: ASCITES: None identified. OTHER: Bilateral pleural effusions, right greater than left. IMPRESSION: NO EVIDENCE FOR ASCITES. BILATERAL PLEURAL EFFUSIONS. TECHNICAL DOCUMENTATION: JOB ID: [id number] 2010 [employer]- All Rights Reserved Reading location - IP/workstation name: [email or web address]
--- NOTE | 2020-01-28 15:57 | PDOC PROGRESS REPORT ---
Subjective Progress Note for:: 01/28/20 Subjective:: No adverse events overnight. No new complaints. Vital signs have been stable. Eating and drinking without difficulty. Blood pressures remain elevated despite multiple attempts with oral medications to get it under control. I thought perhaps he had ascites on his abdomen because his exam was consistent with this, but we got an ultrasound which shows no evidence of ascites. Reason For Visit: PNEUMONIA PRESUMED COVID Physical Exam Vital Signs: Temp Pulse Resp BP Pulse Ox 97.8 F 73 16 176/86 H 97 01/28/20 10:44 01/28/20 14:00 01/28/20 10:44 01/28/20 10:44 01/28/20 10:44 Intake & Output 01/27/20 01/28/20 01/29/20 06:59 06:59 06:59 Intake Total 1995 1120 1176 Output Total 1250 850 675 Balance 746 270 501 Weight 86.9 kg 87.2 kg General appearance: PRESENT: no acute distress, cooperative, disheveled Mouth exam: PRESENT: dry mucosa, neck supple Teeth exam: PRESENT: poor dentation Respiratory exam: PRESENT: decreased breath sounds, symmetrical. ABSENT: accessory muscle use, chest wall tenderness, rhonchi, tachypnea, wheezing, prolonged expiratory phase Cardiovascular exam: PRESENT: RRR, +S1, +S2 Pulses: PRESENT: normal carotid pulses Vascular exam: ABSENT: normal capillary refill - Delayed in left leg GI/Abdominal exam: PRESENT: normal bowel sounds, soft, distended. ABSENT: guarding, rebound, tenderness Extremities exam: PRESENT: other - He has a right BKA. He is missing the great toe on his left foot and appears to have a Charcot deformity Musculoskeletal exam: PRESENT: deformity - Right BKA, left foot Charcot deformity Neurological exam: PRESENT: awake, oriented to person, oriented to place Psychiatric exam: PRESENT: flat affect Skin exam: PRESENT: other - He has evidence of longstanding chronic venous insufficiency distal to the knee of the left leg Results Laboratory Results: 01/28/20 04:24 01/28/20 04:24 01/28/20 01/28/20 04:24 04:24 WBC 12.2 H RBC 3.37 L Hgb 9.3 L Hct 27.4 L MCV 81 MCH 27.6 MCHC 34.0 RDW 14.4 H Plt Count 459 H Sodium 135.5 L Potassium 5.0 Chloride 109 H Carbon Dioxide 21 L Anion Gap 6 BUN 53 H Creatinine 2.24 H Est GFR ( Amer) 36 L Glucose 214 H Calcium 7.7 L 01/23/20 01/23/20 01/23/20 17:46 20:00 20:00 Creatine Kinase 79 CK-MB (CK-2) 1.44 Troponin I 0.124 0.137 NT-Pro-B Natriuret Pep 68826 H 01/24/20 01/24/20 01/24/20 02:30 02:30 08:10 Creatine Kinase 76 59 CK-MB (CK-2) 1.60 Troponin I 0.151 NT-Pro-B Natriuret Pep 01/24/20 01/26/20 08:10 12:58 Creatine Kinase CK-MB (CK-2) 1.44 Troponin I 0.124 0.023 NT-Pro-B Natriuret Pep Impressions: Shoulder X-Ray 01/24/20 00:00 IMPRESSION: No evidence of acute bony injury to the shoulder. Chest X-Ray 01/26/20 00:00 IMPRESSION: BILATERAL LOWER LOBE INFILTRATES CONCERNING FOR PNEUMONIA. SMALL PLEURAL EFFUSIONS. Lung Scan-VQ [place] 01/26/20 00:00 IMPRESSION: SCATTERED SUBSEGMENTAL DEFECTS IN BOTH RIGHT AND LEFT LOWER LOBES. THERE ARE CORRESPONDING FINDINGS ON THE CHEST X-RAY. MAY BE DUE TO UNDERLYING AIRSPACE DISEASE. LOW PROBABILITY FOR PULMONARY EMBOLISM. Abdomen Ultrasound 01/28/20 00:00 IMPRESSION: NO EVIDENCE FOR ASCITES. BILATERAL PLEURAL EFFUSIONS. Assessment and Plan - Diagnosis (1) Elevated troponin Is this a current diagnosis for this admission?: Yes Plan: These have been stable. I think this is more related to his acute kidney injury rather than acute [place]. He is not had any chest pain. I discontinued his heparin drip. (2) Elevated brain natriuretic peptide (BNP) level Is this a current diagnosis for this admission?: Yes Plan: He does not appear dramatically volume overloaded. He did have some pulmonary vascular congestion and small bilateral pleural effusions on chest x-ray. He also had an irregular contour of his heart on his chest x-ray. His echocardiogram was only significant for some grade 1 diastolic dysfunction and mild to moderate pulmonary hypertension. I do not think he is in heart failure. (3) Acute kidney injury Is this a current diagnosis for this admission?: Yes Plan: Creatinine continues to hang around the low twos. It bumped a little bit from yesterday. I am not sure if the ARB has anything to do with it. I am going to get a renal ultrasound with Doppler measurements. If this pattern continues I will get nephrology involved. (4) Anemia Qualifiers: Anemia type: iron deficiency Is this a current diagnosis for this admission?: Yes Plan: Blood counts have improved after 2 units of packed red blood cells, he has maintained his hemoglobin (5) Hyperkalemia Is this a current diagnosis for this admission?: Yes Plan: Resolved (6) Hypertension Qualifiers: Hypertension type: essential hypertension Qualified Code(s): I10 - Essential (primary) hypertension Is this a current diagnosis for this admission?: Yes Plan: I increased his Cozaar and change his metoprolol to Coreg to try to get better blood pressure control, but he still seems to be having a high pressure. If his kidney function deteriorates, I will probably have to stop his Cozaar. He is already on amlodipine. May have to put him on some scheduled hydralazine, or consider a nitrate. I do not want to use clonidine at this time because I have him on Coreg. We will also consider an alpha-abhinav. (7) Pneumonia Qualifiers: Pneumonia type: due to unspecified organism Laterality: bilateral Lung location: lower lobe of lung Qualified Code(s): J18.9 - Pneumonia, unspecified organism Is this a current diagnosis for this admission?: Yes Plan: He did have a leukocytosis and he is coughing up some pretty nasty looking sputum, so were continuing with antibiotics. I have switched him to Zosyn (8) Type 2 diabetes mellitus Qualifiers: Diabetes mellitus skilled nursing insulin use: unspecified skilled nursing insulin use status Diabetes mellitus complication status: with other specified complication Qualified Code(s): E11.69 - Type 2 diabetes mellitus with other specified complication Is this a current diagnosis for this admission?: Yes Plan: Blood sugar control is fair (9) Shoulder pain, left Qualifiers: Chronicity: acute Qualified Code(s): M25.512 - Pain in left shoulder Is this a current diagnosis for this admission?: Yes Plan: Plain films were negative for fracture or dislocation. (10) Abdominal distention, non-gaseous Is this a current diagnosis for this admission?: Yes Plan: Based on his examination I felt this was ascites. Ultrasound was negative for ascites. Going to get an abdominal CT to better evaluate. He has bowel sounds and has been eating and drinking without any difficulty. - Time Time Spent with patient: 25-34 minutes
--- NOTE | 2020-01-28 18:02 | RADIOLOGY REPORT (SQ) ---
EXAM DESCRIPTION: CT ABD/PELVIS NO ORAL OR IV IMAGES COMPLETED DATE/TIME: 01/28/2020 3:15 pm REASON FOR STUDY: abdominal pain and distension diffuse abdominal pain. Previous cholecystectomy. COMPARISON: CT abdomen and pelvis 11/15/2013 TECHNIQUE: CT scan of the abdomen and pelvis performed without intravenous or oral contrast. Images reviewed with lung, soft tissue, and bone windows. Reconstructed coronal and sagittal MPR images revi ewed. All images stored on PACS. All CT scanners at this facility use dose modulation, iterative reconstruction, and/or weight based d osing when appropriate to reduce radiation dose to as low as reasonably achievable (ALARA). [facility]: Dose Right [facility]: CareDose [facility]: Dose Right [facility]: Teradose 4D [facility]: [employer] RADIATION DOSE: CT Rad equipment meets quality standard of care and radiation dose reduction techniq ues were employed. CTDIvol: 14.8 mGy. DLP: 816 mGy-cm.mGy. LIMITATIONS: None. FINDINGS: LOWER CHEST: Moderate bilateral pleural effusions with compressive atelectasis/ consolidat ion at the lung bases. Heart has normal size. NON-CONTRASTED LIVER, SPLEEN, ADRENALS: Liver has normal size and contour. Spleen has normal size wi th calcified granuloma. No adrenal mass. PANCREAS: Evaluation is limited. No masses. No peripancreatic inflammatory changes. GALLBLADDER: Surgically absent. RIGHT KIDNEY AND URETER: No suspicious masses. Assessment limited by lack of IV contrast. No signif icant calcifications. No hydronephrosis or hydroureter. LEFT KIDNEY AND URETER: No suspicious masses. Assessment limited by lack of IV contrast. No signifi cant calcifications. No hydronephrosis or hydroureter. AORTA AND RETROPERITONEUM: No aneurysm. No retroperitoneal masses or adenopathy. BOWEL AND PERITONEAL CAVITY: No obvious masses or inflammatory changes. No free fluid. APPENDIX: Normal. PELVIS, BLADDER, AND ABDOMINAL WALL:The urinary bladder is diffusely thickened measuring up to 10 mm thickness. No intraluminal mass or debris. Multiple calcified pelvic phleboliths. Prostate has nor mal size. No ventral hernia. 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 No suspicious bone lesions. OTHER: No other significant finding. IMPRESSION: 1. Diffuse urinary bladder wall thickening which can be seen with acute or chronic cystitis or neurog enic bladder. Clinical correlation is recommended. 2. Moderate bilateral pleural effusions with compressive atelectasis/consolidation at the lung bases. COMMENT: Quality ID # [id number]: Final reports with documentation of one or more dose reduction techniques (e.g., Automated exposure control, adjustment of the mA and/or kV according to patient size, use of iterative reconstruction technique) TECHNICAL DOCUMENTATION: JOB ID: [id number] 2010 [employer]- All Rights Reserved Reading location - IP/workstation name: [email or web address]
--- NOTE | 2020-01-28 18:09 | RADIOLOGY REPORT (SQ) ---
EXAM DESCRIPTION: U/S RETROPERITON (RENAL/AORTA) IMAGES COMPLETED DATE/TIME: 01/28/2020 3:32 pm REASON FOR STUDY: CHANDRAKANT COMPARISON: CT abdomen and pelvis same date TECHNIQUE: Dynamic and static grayscale images acquired of the kidneys and bladder and recorded on P ACS. Additional selected color Doppler and spectral images recorded. LIMITATIONS: None. FINDINGS: RIGHT KIDNEY: Normal size. Normal echogenicity. No solid or suspicious masses. No hydronep hrosis. No calcifications. LEFT KIDNEY: Normal size. Normal echogenicity. No solid or suspicious masses. No hydronephrosis. No calcifications. BLADDER: Urinary bladder demonstrates a diffusely thickened urinary bladder wall measuring 11 mm thic kness. No intraluminal mass or debris. OTHER FINDINGS: No other significant finding. IMPRESSION: Diffusely thickened urinary bladder wall which can be seen with acute or chronic cystiti s or neurogenic bladder. Clinical correlation is recommended. TECHNICAL DOCUMENTATION: JOB ID: [id number] [employer]- All Rights Reserved Reading location - IP/workstation name: [email or web address]
[2020-01-28] MEDS: ATORVASTATIN CALCIUM 80 MG TABLET PO SCH (21:20)
[2020-01-29 05:33] LABS: HEMATOCRIT 26.9 % (37.9-51.0); HEMOGLOBIN 9.1 g/dL (13.5-17.0); MEAN CORPUSCULAR HEMOGLOBIN 27.6 pg (27.0-33.4); MEAN CORPUSCULAR VOLUME 81 fl (80-97); PLATELET COUNT 496 10^3/uL (150-450); RED BLOOD COUNT 3.31 10^6/uL (4.35-5.55); RED CELL DISTRIBUTION WIDTH 14.9 % (11.5-14.0); WHITE BLOOD COUNT 15.2 10^3/uL (4.0-10.5)
[2020-01-29] MEDS: PIPERACILLIN SODIUM/TAZOBACTAM 3.375 GM in NORMAL SALINE 100 ML IV SCH ×3 (05:45→18:02)
[2020-01-29 05:49] LABS: ANION GAP 8 (5-19); BLOOD UREA NITROGEN 57 mg/dL (7-20); CALCIUM 7.7 mg/dL (8.4-10.2); CARBON DIOXIDE 19 mmol/L (22-30); CHLORIDE 109 mmol/L (98-107); GLUCOSE 179 mg/dL (75-110); POTASSIUM 5.6 mmol/L (3.6-5.0)
[2020-01-29] MEDS: IPRATROPIUM/ALBUTEROL 0.5-2.5 MG/3 ML AMPUL NEB PRN (07:48)
[2020-01-29] MEDS: HYDRALAZINE HCL INJ/PF 20 MG/1 ML SDV IV PRN ×4 (07:53→20:12)
[2020-01-29] MEDS: INSULIN LISPRO 100 UNIT/ML 3 ML VIAL SUBCUT SCH ×3 (07:54→16:23)
[2020-01-29] MEDS: ASCORBIC ACID 500 MG TABLET PO SCH ×2 (09:53→18:03)
[2020-01-29] MEDS: AMLODIPINE BESYLATE 10 MG TABLET PO SCH (09:53)
[2020-01-29] MEDS: TRAMADOL HCL 50 MG TABLET PO PRN (09:53)
[2020-01-29] MEDS: LOSARTAN POTASSIUM 50 MG TABLET PO SCH (09:53)
[2020-01-29] MEDS: CARVEDILOL 12.5 MG TABLET PO SCH ×2 (09:54→21:47)
[2020-01-29] MEDS: IPRATROPIUM BROMIDE 0.06% NASAL SPRAY 15 ML NASL SCH ×3 (09:54→18:03)
[2020-01-29] MEDS: PREDNISONE 20 MG TABLET PO SCH (09:54)
[2020-01-29] MEDS: ASPIRIN 325 MG TABLET PO SCH (09:54)
[2020-01-29] MEDS: ZINC SULFATE 220 MG CAPSULE PO SCH (09:54)
[2020-01-29] MEDS: POLYETHYLENE GLYCOL 3350 POWDER 17 GM/1 PACKET PO SCH (12:58)
[2020-01-29] MEDS: SENNOSIDES/DOCUSATE 8.6-50 MG 1 EACH TABLET PO SCH ×2 (12:58→18:02)
[2020-01-29] MEDS ORDERED: DOXAZOSIN MESYLATE 1 MG TABLET PO SCH (13:00)
[2020-01-29] MEDS ORDERED: NA PHOS,M-B/NA PHOS,DI-BA (ADULT) 133 ML ENEMA PR ONE (17:00)
--- NOTE | 2020-01-29 18:15 | PDOC PROGRESS REPORT ---
Subjective Progress Note for:: 01/29/20 Subjective:: No adverse events overnight. Blood pressure remains persistently high. We added some Cardura this morning and his blood pressure is still elevated. He has had a good appetite and has been eating everything. He said he is only had 2 bowel movements the whole time he is been in the hospital and feels like his belly is full because he needs to have a good bowel movement. CT imaging did not show anything acutely abnormal. He did appear to have a moderately large stool burden on CT. Reason For Visit: PNEUMONIA PRESUMED COVID Physical Exam Vital Signs: Temp Pulse Resp BP Pulse Ox 97.9 F 72 20 182/89 H 100 01/29/20 15:23 01/29/20 15:23 01/29/20 15:23 01/29/20 15:23 01/29/20 15:23 Intake & Output 01/28/20 01/29/20 01/30/20 06:59 06:59 06:59 Intake Total 1120 1616 920 Output Total 850 1000 1425 Balance 270 616 -505 Weight 87.2 kg 86.7 kg General appearance: PRESENT: no acute distress, cooperative, disheveled Mouth exam: PRESENT: dry mucosa, neck supple Teeth exam: PRESENT: poor dentation Respiratory exam: PRESENT: decreased breath sounds, symmetrical. ABSENT: accessory muscle use, chest wall tenderness, rhonchi, tachypnea, wheezing, prolonged expiratory phase Cardiovascular exam: PRESENT: RRR, +S1, +S2 Pulses: PRESENT: normal carotid pulses Vascular exam: ABSENT: normal capillary refill - Delayed in left leg GI/Abdominal exam: PRESENT: normal bowel sounds, soft, distended. ABSENT: guarding, rebound, tenderness Extremities exam: PRESENT: other - He has a right BKA. He is missing the great toe on his left foot and appears to have a Charcot deformity Musculoskeletal exam: PRESENT: deformity - Right BKA, left foot Charcot deformity Neurological exam: PRESENT: awake, oriented to person, oriented to place Psychiatric exam: PRESENT: flat affect Skin exam: PRESENT: other - He has evidence of longstanding chronic venous insufficiency distal to the knee of the left leg Results Laboratory Results: 01/29/20 04:35 01/29/20 04:35 01/29/20 01/29/20 04:35 04:35 WBC 15.2 H RBC 3.31 L Hgb 9.1 L Hct 26.9 L MCV 81 MCH 27.6 MCHC 34.0 RDW 14.9 H Plt Count 496 H Sodium 135.5 L Potassium 5.6 H Chloride 109 H Carbon Dioxide 19 L Anion Gap 8 BUN 57 H Creatinine 2.10 H Est GFR ( Amer) 39 L Glucose 179 H Calcium 7.7 L 01/23/20 20:00 Blood Blood Culture - Final NO GROWTH IN 5 DAYS 01/23/20 17:46 Blood Blood Culture - Final NO GROWTH IN 5 DAYS 01/23/20 01/23/20 01/23/20 17:46 20:00 20:00 Creatine Kinase 79 CK-MB (CK-2) 1.44 Troponin I 0.124 0.137 NT-Pro-B Natriuret Pep 32625 H 01/24/20 01/24/20 01/24/20 02:30 02:30 08:10 Creatine Kinase 76 59 CK-MB (CK-2) 1.60 Troponin I 0.151 NT-Pro-B Natriuret Pep 01/24/20 01/26/20 08:10 12:58 Creatine Kinase CK-MB (CK-2) 1.44 Troponin I 0.124 0.023 NT-Pro-B Natriuret Pep Impressions: Shoulder X-Ray 01/24/20 00:00 IMPRESSION: No evidence of acute bony injury to the shoulder. Chest X-Ray 01/26/20 00:00 IMPRESSION: BILATERAL LOWER LOBE INFILTRATES CONCERNING FOR PNEUMONIA. SMALL PLEURAL EFFUSIONS. Lung Scan-VQ NM 01/26/20 00:00 IMPRESSION: SCATTERED SUBSEGMENTAL DEFECTS IN BOTH RIGHT AND LEFT LOWER LOBES. THERE ARE CORRESPONDING FINDINGS ON THE CHEST X-RAY. MAY BE DUE TO UNDERLYING AIRSPACE DISEASE. LOW PROBABILITY FOR PULMONARY EMBOLISM. Abdomen Ultrasound 01/28/20 00:00 IMPRESSION: NO EVIDENCE FOR ASCITES. BILATERAL PLEURAL EFFUSIONS. Abdomen/Pelvis CT 01/28/20 00:00 IMPRESSION: 1. Diffuse urinary bladder wall thickening which can be seen with acute or chronic cystitis or neurogenic bladder. Clinical correlation is recommended. 2. Moderate bilateral pleural effusions with compressive atelectasis/consolidation at the lung bases. Renal Ultrasound 01/28/20 00:00 IMPRESSION: Diffusely thickened urinary bladder wall which can be seen with acute or chronic cystitis or neurogenic bladder. Clinical correlation is recommended. Assessment and Plan - Diagnosis (1) Elevated troponin Is this a current diagnosis for this admission?: Yes Plan: These have been stable. I think this is more related to his acute kidney injury rather than acute SC. He is not had any chest pain. I discontinued his heparin drip. (2) Elevated brain natriuretic peptide (BNP) level Is this a current diagnosis for this admission?: Yes Plan: He does not appear dramatically volume overloaded. He did have some pulmonary vascular congestion and small bilateral pleural effusions on chest x-ray. He also had an irregular contour of his heart on his chest x-ray. His echocardiogram was only significant for some grade 1 diastolic dysfunction and mild to moderate pulmonary hypertension. I do not think he is in heart failure. (3) Acute kidney injury Is this a current diagnosis for this admission?: Yes Plan: His creatinine has remained stable between 2 and 2.2. He had a normal creatinine in April of last year. This is likely ATN. I am having to be cautious with the blood pressure medicines the use because I do not want to make his renal function worse. He is no longer dehydrated. (4) Anemia Qualifiers: Anemia type: iron deficiency Is this a current diagnosis for this admission?: Yes Plan: Blood counts have improved after 2 units of packed red blood cells, he has maintained his hemoglobin (5) Hyperkalemia Is this a current diagnosis for this admission?: Yes Plan: Resolved (6) Hypertension Qualifiers: Hypertension type: essential hypertension Qualified Code(s): I10 - Essential (primary) hypertension Is this a current diagnosis for this admission?: Yes Plan: He was already on Coreg and amlodipine. I added Cardura today. I have not wanted to use diuretics, ANTONIETA inhibitors, or ARB is because of his renal failure. If he remains stable I may try to put him on an ANTONIETA inhibitor or ARB. His renal ultrasound was unremarkable. (7) Pneumonia Qualifiers: Pneumonia type: due to unspecified organism Laterality: bilateral Lung location: lower lobe of lung Qualified Code(s): J18.9 - Pneumonia, unspecified organism Is this a current diagnosis for this admission?: Yes Plan: He did have a leukocytosis and he is coughing up some pretty nasty looking sputum, so were continuing with antibiotics. I have switched him to Zosyn. He continues to have a persistent leukocytosis. There is no evidence of any other infection. (8) Type 2 diabetes mellitus Qualifiers: Diabetes mellitus fci insulin use: unspecified fci insulin use status Diabetes mellitus complication status: with other specified complication Qualified Code(s): E11.69 - Type 2 diabetes mellitus with other specified complication Is this a current diagnosis for this admission?: Yes Plan: Blood sugar control is fair (9) Shoulder pain, left Qualifiers: Chronicity: acute Qualified Code(s): M25.512 - Pain in left shoulder Is this a current diagnosis for this admission?: Yes Plan: Plain films were negative for fracture or dislocation. (10) Abdominal distention, non-gaseous Is this a current diagnosis for this admission?: Yes Plan: Based on his examination I felt this was ascites. Ultrasound was negative for ascites. CT was negative for anything acute, but he does have a moderately larg e stool burden. We started him on some MiraLAX and Senokot today but this did not produce a bowel movement. Were going to give him a fleets enema. - Time Time Spent with patient: 25-34 minutes
[2020-01-29] MEDS: ATORVASTATIN CALCIUM 80 MG TABLET PO SCH (21:47)
[2020-01-29] MEDS: DOXAZOSIN MESYLATE 1 MG TABLET PO SCH (21:47)
[2020-01-30] MEDS: HYDRALAZINE HCL INJ/PF 20 MG/1 ML SDV IV PRN ×3 (03:41→23:41)
[2020-01-30 05:07] LABS: HEMATOCRIT 25.8 % (37.9-51.0); HEMOGLOBIN 8.7 g/dL (13.5-17.0); MEAN CORPUSCULAR HEMOGLOBIN 27.5 pg (27.0-33.4); MEAN CORPUSCULAR HGB CONC 33.8 g/dL (32.0-36.0); MEAN CORPUSCULAR VOLUME 81 fl (80-97); PLATELET COUNT 428 10^3/uL (150-450); RED BLOOD COUNT 3.18 10^6/uL (4.35-5.55); RED CELL DISTRIBUTION WIDTH 14.9 % (11.5-14.0); WHITE BLOOD COUNT 15.9 10^3/uL (4.0-10.5)
[2020-01-30 05:34] LABS: ANION GAP 6 (5-19); BLOOD UREA NITROGEN 53 mg/dL (7-20); CALCIUM 7.7 mg/dL (8.4-10.2); CARBON DIOXIDE 21 mmol/L (22-30); CHLORIDE 109 mmol/L (98-107); GLUCOSE 123 mg/dL (75-110); POTASSIUM 5.2 mmol/L (3.6-5.0)
[2020-01-30] MEDS: PIPERACILLIN SODIUM/TAZOBACTAM 3.375 GM in NORMAL SALINE 100 ML IV SCH ×6 (05:42→23:40)
[2020-01-30] MEDS: INSULIN LISPRO 100 UNIT/ML 3 ML VIAL SUBCUT SCH ×3 (07:38→16:43)
[2020-01-30] MEDS: DOXAZOSIN MESYLATE 1 MG TABLET PO SCH ×2 (09:07→22:11)
[2020-01-30] MEDS: ASCORBIC ACID 500 MG TABLET PO SCH ×2 (09:07→17:22)
[2020-01-30] MEDS: AMLODIPINE BESYLATE 10 MG TABLET PO SCH (09:07)
[2020-01-30] MEDS: ASPIRIN 325 MG TABLET PO SCH (09:07)
[2020-01-30] MEDS: PREDNISONE 20 MG TABLET PO SCH (09:07)
[2020-01-30] MEDS: POLYETHYLENE GLYCOL 3350 POWDER 17 GM/1 PACKET PO SCH (09:07)
[2020-01-30] MEDS: LOSARTAN POTASSIUM 50 MG TABLET PO SCH (09:07)
[2020-01-30] MEDS: CARVEDILOL 12.5 MG TABLET PO SCH ×2 (09:07→22:11)
[2020-01-30] MEDS: SENNOSIDES/DOCUSATE 8.6-50 MG 1 EACH TABLET PO SCH ×2 (09:07→17:22)
[2020-01-30] MEDS: ZINC SULFATE 220 MG CAPSULE PO SCH (09:07)
[2020-01-30] MEDS: IPRATROPIUM BROMIDE 0.06% NASAL SPRAY 15 ML NASL SCH ×3 (09:08→17:22)
--- NOTE | 2020-01-30 15:20 | PDOC PROGRESS REPORT ---
Subjective Progress Note for:: 01/30/20 Subjective:: No adverse events overnight. No new complaints. He had a large bowel movement yesterday and even though his belly does not really look any different, he says it feels a lot better. His creatinine has improved some today. His blood pressure still elevated but is not as high as it was yesterday. We took him off oxygen to see what he would do on room air and he is hanging out around 94%. Reason For Visit: PNEUMONIA PRESUMED COVID Physical Exam Vital Signs: Temp Pulse Resp BP Pulse Ox 97.6 F 63 18 167/75 H 94 01/30/20 11:17 01/30/20 11:17 01/30/20 11:17 01/30/20 11:17 01/30/20 11:17 Intake & Output 01/29/20 01/30/20 01/31/20 06:59 06:59 06:59 Intake Total 1616 1820 600 Output Total 1000 1625 300 Balance 616 195 300 Weight 86.7 kg 87.7 kg General appearance: PRESENT: no acute distress, cooperative, disheveled Mouth exam: PRESENT: dry mucosa, neck supple Teeth exam: PRESENT: poor dentation Respiratory exam: PRESENT: decreased breath sounds, symmetrical. ABSENT: accessory muscle use, chest wall tenderness, rhonchi, tachypnea, wheezing, prolonged expiratory phase Cardiovascular exam: PRESENT: RRR, +S1, +S2 Pulses: PRESENT: normal carotid pulses Vascular exam: ABSENT: normal capillary refill - Delayed in left leg GI/Abdominal exam: PRESENT: normal bowel sounds, soft, distended. ABSENT: guarding, rebound, tenderness Extremities exam: PRESENT: other - He has a right BKA. He is missing the great toe on his left foot and appears to have a Charcot deformity Musculoskeletal exam: PRESENT: deformity - Right BKA, left foot Charcot deformity Neurological exam: PRESENT: awake, oriented to person, oriented to place Psychiatric exam: PRESENT: flat affect Skin exam: PRESENT: other - He has evidence of longstanding chronic venous insufficiency distal to the knee of the left leg Results Laboratory Results: 01/30/20 04:34 01/30/20 04:34 01/30/20 01/30/20 04:34 04:34 WBC 15.9 H RBC 3.18 L Hgb 8.7 L Hct 25.8 L MCV 81 MCH 27.5 MCHC 33.8 RDW 14.9 H Plt Count 428 Sodium 135.9 L Potassium 5.2 H Chloride 109 H Carbon Dioxide 21 L Anion Gap 6 BUN 53 H Creatinine 1.93 H Est GFR ( Amer) 43 L Glucose 123 H Calcium 7.7 L 01/23/20 01/23/20 01/23/20 17:46 20:00 20:00 Creatine Kinase 79 CK-MB (CK-2) 1.44 Troponin I 0.124 0.137 NT-Pro-B Natriuret Pep 23207 H 01/24/20 01/24/20 01/24/20 02:30 02:30 08:10 Creatine Kinase 76 59 CK-MB (CK-2) 1.60 Troponin I 0.151 NT-Pro-B Natriuret Pep 01/24/20 01/26/20 08:10 12:58 Creatine Kinase CK-MB (CK-2) 1.44 Troponin I 0.124 0.023 NT-Pro-B Natriuret Pep Impressions: Shoulder X-Ray 01/24/20 00:00 IMPRESSION: No evidence of acute bony injury to the shoulder. Chest X-Ray 01/26/20 00:00 IMPRESSION: BILATERAL LOWER LOBE INFILTRATES CONCERNING FOR PNEUMONIA. SMALL PLEURAL EFFUSIONS. Lung Scan-VQ NM 01/26/20 00:00 IMPRESSION: SCATTERED SUBSEGMENTAL DEFECTS IN BOTH RIGHT AND LEFT LOWER LOBES. THERE ARE CORRESPONDING FINDINGS ON THE CHEST X-RAY. MAY BE DUE TO UNDERLYING AIRSPACE DISEASE. LOW PROBABILITY FOR PULMONARY EMBOLISM. Abdomen Ultrasound 01/28/20 00:00 IMPRESSION: NO EVIDENCE FOR ASCITES. BILATERAL PLEURAL EFFUSIONS. Abdomen/Pelvis CT 01/28/20 00:00 IMPRESSION: 1. Diffuse urinary bladder wall thickening which can be seen with acute or chronic cystitis or neurogenic bladder. Clinical correlation is recommended. 2. Moderate bilateral pleural effusions with compressive atelectasis/consolidation at the lung bases. Renal Ultrasound 01/28/20 00:00 IMPRESSION: Diffusely thickened urinary bladder wall which can be seen with acute or chronic cystitis or neurogenic bladder. Clinical correlation is recommended. Assessment and Plan - Diagnosis (1) Elevated troponin Is this a current diagnosis for this admission?: Yes Plan: These have been stable. I think this is more related to his acute kidney injury rather than acute VT. He is not had any chest pain. I discontinued his heparin drip. (2) Elevated brain natriuretic peptide (BNP) level Is this a current diagnosis for this admission?: Yes Plan: He does not appear dramatically volume overloaded. He did have some pulmonary vascular congestion and small bilateral pleural effusions on chest x-ray. He also had an irregular contour of his heart on his chest x-ray. His echocar diogram was only significant for some grade 1 diastolic dysfunction and mild to moderate pulmonary hypertension. I do not think he is in heart failure. (3) Acute kidney injury Is this a current diagnosis for this admission?: Yes Plan: His creatinine has improved a little bit 1.9. This is likely ATN. I am having to be cautious with the blood pressure medicines the use because I do not want to make his renal function worse. He is no longer dehydrated. (4) Anemia Qualifiers: Anemia type: iron deficiency Is this a current diagnosis for this admission?: Yes Plan: Blood counts have improved after 2 units of packed red blood cells, he has maintained his hemoglobin (5) Hyperkalemia Is this a current diagnosis for this admission?: Yes Plan: Resolved (6) Hypertension Qualifiers: Hypertension type: essential hypertension Qualified Code(s): I10 - Essential (primary) hypertension Is this a current diagnosis for this admission?: Yes Plan: He was already on Coreg and amlodipine. I added Cardura. I have not wanted to use diuretics, ANTONIETA inhibitors, or ARB is because of his renal failure. Blood pressure has improved some and he feels better. His renal ultrasound was unremarkable. (7) Pneumonia Qualifiers: Pneumonia type: due to unspecified organism Laterality: bilateral Lung location: lower lobe of lung Qualified Code(s): J18.9 - Pneumonia, unspecified organism Is this a current diagnosis for this admission?: Yes Plan: He did have a leukocytosis and he is coughing up some pretty nasty looking sputum, so were continuing with antibiotics. I have switched him to Zosyn. He continues to have a persistent leukocytosis. There is no evidence of any other infection. We will give him 7 days total. (8) Type 2 diabetes mellitus Qualifiers: Diabetes mellitus salvage determiner insulin use: unspecified snf insulin use status Diabetes mellitus complication status: with other specified complication Qualified Code(s): E11.69 - Type 2 diabetes mellitus with other specified complication Is this a current diagnosis for this admission?: Yes Plan: Blood sugar control is fair (9) Shoulder pain, left Qualifiers: Chronicity: acute Qualified Code(s): M25.512 - Pain in left shoulder Is this a current diagnosis for this admission?: Yes Plan: Plain films were negative for fracture or dislocation. (10) Abdominal distention, non-gaseous Is this a current diagnosis for this admission?: Yes Plan: I think the way he looks narrowing is probably just his normal body habitus. His belly does not look much different from yesterday, but he had a large bowel movement yesterday and says that his belly feels better today. - Time Time Spent with patient: 25-34 minutes
[2020-01-30] MEDS: ATORVASTATIN CALCIUM 80 MG TABLET PO SCH (22:11)
[2020-01-31] MEDS ORDERED: CALCIUM CARBONATE 500 MG TAB.CHEW PO PRN (00:11)
[2020-01-31] MEDS: HYDRALAZINE HCL INJ/PF 20 MG/1 ML SDV IV PRN (04:26)
[2020-01-31] MEDS ORDERED: LOSARTAN POTASSIUM 50 MG TABLET PO ONE (05:00)
[2020-01-31] MEDS ORDERED: DOXAZOSIN MESYLATE 1 MG TABLET PO ONE (05:00)
[2020-01-31 05:27] LABS: HEMATOCRIT 26.6 % (37.9-51.0); HEMOGLOBIN 8.9 g/dL (13.5-17.0); MEAN CORPUSCULAR HEMOGLOBIN 27.2 pg (27.0-33.4); MEAN CORPUSCULAR HGB CONC 33.3 g/dL (32.0-36.0); MEAN CORPUSCULAR VOLUME 82 fl (80-97); PLATELET COUNT 451 10^3/uL (150-450); RED BLOOD COUNT 3.26 10^6/uL (4.35-5.55); RED CELL DISTRIBUTION WIDTH 15.1 % (11.5-14.0)
[2020-01-31] MEDS: PIPERACILLIN SODIUM/TAZOBACTAM 3.375 GM in NORMAL SALINE 100 ML IV SCH (05:51)
[2020-01-31 05:58] LABS: ANION GAP 7 (5-19); BLOOD UREA NITROGEN 52 mg/dL (7-20); CALCIUM 7.6 mg/dL (8.4-10.2); CARBON DIOXIDE 22 mmol/L (22-30); CHLORIDE 108 mmol/L (98-107); GLUCOSE 225 mg/dL (75-110); POTASSIUM 5.1 mmol/L (3.6-5.0)
[2020-01-31] MEDS ORDERED: TRAMADOL HCL 50 MG TABLET PO PRN (06:48)
[2020-01-31] MEDS: INSULIN LISPRO 100 UNIT/ML 3 ML VIAL SUBCUT SCH ×2 (07:24→11:52)
[2020-01-31] MEDS: SENNOSIDES/DOCUSATE 8.6-50 MG 1 EACH TABLET PO SCH (09:42)
[2020-01-31] MEDS: CARVEDILOL 12.5 MG TABLET PO SCH (09:42)
[2020-01-31] MEDS: AMLODIPINE BESYLATE 10 MG TABLET PO SCH (09:42)
[2020-01-31] MEDS: ASCORBIC ACID 500 MG TABLET PO SCH (09:42)
[2020-01-31] MEDS: ASPIRIN 325 MG TABLET PO SCH (09:42)
[2020-01-31] MEDS: PREDNISONE 20 MG TABLET PO SCH (09:42)
[2020-01-31] MEDS: POLYETHYLENE GLYCOL 3350 POWDER 17 GM/1 PACKET PO SCH (09:43)
[2020-01-31] MEDS: IPRATROPIUM BROMIDE 0.06% NASAL SPRAY 15 ML NASL SCH (09:50)
[2020-01-31] MEDS: ZINC SULFATE 220 MG CAPSULE PO SCH (09:51)
[2020-01-31] MEDS ORDERED: DOXAZOSIN MESYLATE 2 MG TABLET PO SCH (10:00)
[2020-01-31] MEDS ORDERED: LOSARTAN POTASSIUM 50 MG TABLET PO SCH (10:00)
[2020-01-31 12:18] VITALS: BP 178/73
--- NOTE | 2020-01-31 17:16 | PDOC DISCHARGE SUMMARY ---
Impression - Admit/DC Date/PCP Admission Date/Primary Care Provider: 01/23/20 19:42 ALHAJI VILLALBA MD Discharge Date: 01/31/20 - Discharge Diagnosis (1) Elevated troponin Is this a current diagnosis for this admission?: Yes (2) Elevated brain natriuretic peptide (BNP) level Is this a current diagnosis for this admission?: Yes (3) Acute kidney injury Is this a current diagnosis for this admission?: Yes (4) Anemia Is this a current diagnosis for this admission?: Yes (5) Hyperkalemia Is this a current diagnosis for this admission?: Yes (6) Hypertension Is this a current diagnosis for this admission?: Yes (7) Pneumonia Is this a current diagnosis for this admission?: Yes (8) Type 2 diabetes mellitus Is this a current diagnosis for this admission?: Yes (9) Shoulder pain, left Is this a current diagnosis for this admission?: Yes (10) Abdominal distention, non-gaseous Is this a current diagnosis for this admission?: Yes - Additional Information Resuscitation Status: Full Code Discharge Diet: Cardiac, Diabetic Discharge Activity: Activity As Tolerated, Balance Activity w/Rest, Energy Conservation Referrals: ALHAJI VILLALBA MD [Primary Care Provider] - 02/05/20 11:00 am (1 week, needs a BMP to check renal function. PATIENT WILL NEED TO CALL THE OFFICE FROM HIS VEHICLE AND CHECK IN FOR APPT.) Prescriptions: Doxazosin Mesylate [Cardura 2 mg Tablet] 2 mg PO Q12 #60 tablet Carvedilol [Coreg 12.5 mg Tablet] 12.5 mg PO Q12 #60 tablet Losartan Potassium [Cozaar 50 mg Tablet] 100 mg PO DAILY #60 tablet Insulin Glargine,Hum.rec.anlog [Lantus Insulin 100 Unit/mL Insulin Pen] 10 unit SUBCUT QHS #1 pen Atorvastatin Calcium [Lipitor 80 mg Tablet] 80 mg PO QHS #30 tablet Amlodipine Besylate [Norvasc 10 mg Tablet] 10 mg PO DAILY #30 tablet Home Medications: Amlodipine Besylate [Norvasc 10 mg Tablet] 10 mg PO DAILY #30 tablet 01/31/20 Aspirin [Aspirin 325 mg Tablet] 325 mg PO DAILY #0 tablet 01/31/20 Atorvastatin Calcium [Lipitor 80 mg Tablet] 80 mg PO QHS #30 tablet 05/28/20 Carvedilol [Coreg 12.5 mg Tablet] 12.5 mg PO Q12 #60 tablet 01/31/20 Doxazosin Mesylate [Cardura 2 mg Tablet] 2 mg PO Q12 #60 tablet 01/31/20 Insulin Glargine,Hum.rec.anlog [Lantus Insulin 100 Unit/mL Insulin Pen] 10 unit SUBCUT QHS #1 pen 01/31/20 Losartan Potassium [Cozaar 50 mg Tablet] 100 mg PO DAILY #60 tablet 01/31/20 History of Present Illiness History of Present Illness: ANIYAH ARRIAGA is a 64 year old male with a past medical history of tobacco dependence, hypertension, dyslipidemia, alcohol dependence, insulin-dependent diabetes, peripheral vascular disease with right AKA and left great toe amputation. He presents with 3 days of intermittently productive cough, subjective fever and shortness of breath prompting evaluation emergency room where he is found to have leukocytosis of 30,000, lymphopenia, tachypnea of 30, systolic hypertension of 190. He receives treatment for community-acquired pneumonia with Rocephin and azithromycin and referred to the hospitalist for admission. Patient does not know of any infectious contacts or risk for COVID- 19 however he resides with his son works daily on [employer]. Patient denies recent change in medication regiment. Hospital Course Hospital Course: He is completed a full course of antibiotics for his pneumonia. He grew out Haemophilus influenza. He had some wheezing and got a few days worth of steroids but does not need to continue those at home. He is a diabetic and is on Lantus at home but when we controlled his diet he was not needing anywhere near as much insulin as he was on at home. I have adjusted his home dose of Lantus for him and encouraged him to watch his diet closely. He was complaining of a lot of abdominal pain but a thorough investigation revealed that he was just constipated. After bowel regimen he said his belly was feeling a lot better. His creatinine is elevated above its baseline. He has plateaued around 1.9 in terms of its improvement. This is likely due to ATN and will take some time for it to return to its baseline. He was hypoxemic for a while but is now on room air. His blood pressures were also substantially elevated and required a lot of work to get them reasonably controlled. He was given prescriptions for his new blood pressure medications. We made sure that he could transfer without trouble into the chair from the bed because he gets around a wheelchair at home. He did so easily. He said that he has someone at home with him all the time and always has access to a ride to his doctor's appointments. He also said he has a walker at home in addition to his wheelchair. His labs and examination were reassuring he was discharged in stable condition. Physical Exam Vital Signs: Temp Pulse Resp BP Pulse Ox 97.8 F 56 L 18 178/73 H 95 01/31/20 11:46 01/31/20 11:46 01/31/20 11:46 01/31/20 11:46 01/31/20 11:46 Intake & Output 01/30/20 01/31/20 02/01/20 06:59 06:59 06:59 Intake Total 1820 2112 620 Output Total 1625 1275 475 Balance 195 837 145 Weight 87.7 kg 88.7 kg General appearance: PRESENT: no acute distress, cooperative, disheveled Mouth exam: PRESENT: dry mucosa, neck supple Teeth exam: PRESENT: poor dentation Respiratory exam: PRESENT: decreased breath sounds, symmetrical. ABSENT: accessory muscle use, chest wall tenderness, rhonchi, tachypnea, wheezing, prolonged expiratory phase Cardiovascular exam: PRESENT: RRR, +S1, +S2 Pulses: PRESENT: normal carotid pulses Vascular exam: ABSENT: normal capillary refill - Delayed in left leg GI/Abdominal exam: PRESENT: normal bowel sounds, soft, distended. ABSENT: guarding, rebound, tenderness Extremities exam: PRESENT: other - He has a right BKA. He is missing the great toe on his left foot and appears to have a Charcot deformity Musculoskeletal exam: PRESENT: deformity - Right BKA, left foot Charcot deformi ty Neurological exam: PRESENT: awake, oriented to person, oriented to place Psychiatric exam: PRESENT: flat affect Skin exam: PRESENT: other - He has evidence of longstanding chronic venous insufficiency distal to the knee of the left leg Results Laboratory Results: WBC 15.0 10^3/uL (4.0-10.5) H 01/31/20 04:18 RBC 3.26 10^6/uL (4.35-5.55) L 01/31/20 04:18 Hgb 8.9 g/dL (13.5-17.0) L 01/31/20 04:18 Hct 26.6 % (37.9-51.0) L 01/31/20 04:18 MCV 82 fl (80-97) 01/31/20 04:18 MCH 27.2 pg (27.0-33.4) 01/31/20 04:18 MCHC 33.3 g/dL (32.0-36.0) 01/31/20 04:18 RDW 15.1 % (11.5-14.0) H 01/31/20 04:18 Plt Count 451 10^3/uL (150-450) H 01/31/20 04:18 Lymph % (Auto) 7.7 % (13-45) L 01/25/20 23:51 [place] % (Auto) 6.2 % (3-13) 01/25/20 23:51 Eos % (Auto) 2.9 % (0-6) 01/25/20 23:51 Baso % (Auto) 0.5 % (0-2) 01/25/20 23:51 Reticulocyte # 0.038 10^6/uL (0.028-0.122) 01/23/20 20:00 Absolute Neuts (auto) 11.6 10^3/uL (1.7-8.2) H 01/25/20 23:51 Absolute Lymphs (auto) 1.1 10^3/uL (0.5-4.7) 01/25/20 23:51 Absolute Monos (auto) 0.9 10^3/uL (0.1-1.4) 01/25/20 23:51 Absolute Eos (auto) 0.4 10^3/uL (0.0-0.6) 01/25/20 23:51 Absolute Basos (auto) 0.1 10^3/uL (0.0-0.2) 01/25/20 23:51 Total Counted 100 01/24/20 02:30 Seg Neutrophils % 82.7 % (42-78) H 01/25/20 23:51 Seg Neuts % (Manual) 90 % (42-78) H 01/24/20 02:30 Band Neutrophils % 2 % (3-5) L 01/24/20 02:30 Lymphocytes % (Manual) 4 % (13-45) L 01/24/20 02:30 Monocytes % (Manual) 4 % (3-13) 01/24/20 02:30 Eosinophils % (Manual) 0 % (0-6) 01/24/20 02:30 Basophils % (Manual) 0 % (0-2) 01/24/20 02:30 Abs Neuts (Manual) 29.1 10^3/uL (1.7-8.2) H 01/24/20 02:30 Abs Lymphs (Manual) 1.3 10^3/uL (0.5-4.7) 01/24/20 02:30 Abs Monocytes (Manual) 1.3 10^3/uL (0.1-1.4) 01/24/20 02:30 Absolute Eos (Manual) 0.0 10^3/uL (0.0-0.6) 01/24/20 02:30 Abs Basophils (Manual) 0.0 10^3/uL (0.0-0.2) 01/24/20 02:30 Platelet Comment ADEQUATE 01/24/20 02:30 Anisocytosis SLIGHT 01/24/20 02:30 Microcytosis SLIGHT 01/24/20 02:30 Retic Count (auto) 1.34 % (0.66-2.85) 01/23/20 20:00 PT 15.3 SEC (11.4-15.4) 01/27/20 10:44 INR 1.20 01/27/20 10:44 INR (Anticoag Therapy) Cancelled 01/23/20 20:00 APTT 43.7 SEC (23.5-35.8) H 01/24/20 10:45 D-Dimer 2.08 ug/mL (0.00-0.50) H 01/23/20 20:00 Carbonic Acid 1.08 mmol/L (1.05-1.35) 01/23/20 19:18 HCO3/H2CO3 Ratio 20:1 01/23/20 19:18 ABG pH 7.40 (7.35-7.45) 01/23/20 19:18 ABG pCO2 35.8 mmHg (35-45) 01/23/20 19:18 ABG pO2 67.0 mmHg (80-100) L 01/23/20 19:18 ABG HCO3 21.6 mmol/L (20-24) 01/23/20 19:18 ABG Total CO2 22.7 mmol/L (23-27) L 01/23/20 19:18 ABG O2 Saturation 93.5 % (94-98) L 01/23/20 19:18 ABG Base Excess -2.8 mmol/L 01/23/20 19:18 VBG pH 7.26 (7.30-7.42) L 01/23/20 17:46 VBG pCO2 47.9 mmHg (35-63) 01/23/20 17:46 VBG HCO3 21.2 mmol/L (20-32) 01/23/20 17:46 VBG Base Excess -6.1 mmol/L 01/23/20 17:46 FiO2 2L 01/23/20 19:18 Sodium 137.2 mmol/L (137-145) 01/31/20 04:18 Potassium 5.1 mmol/L (3.6-5.0) H 01/31/20 04:18 Chloride 108 mmol/L (98-107) H 01/31/20 04:18 Carbon Dioxide 22 mmol/L (22-30) 01/31/20 04:18 Anion Gap 7 (5-19) 01/31/20 04:18 BUN 52 mg/dL (7-20) H 01/31/20 04:18 Creatinine 1.96 mg/dL (0.52-1.25) H 01/31/20 04:18 Est GFR ( Amer) 42 (>60) L 01/31/20 04:18 Est GFR (MDRD) Non-Af 35 (>60) L 01/31/20 04:18 Glucose 225 mg/dL (75-110) H 01/31/20 04:18 POC Glucose 157 mg/dL (70-110) H 01/31/20 11:43 Lactic Acid 0.6 mmol/L (0.7-2.1) L 01/24/20 03:59 Calcium 7.6 mg/dL (8.4-10.2) L 01/31/20 04:18 Iron 15.1 ug/dL (49-181) L 01/23/20 20:00 TIBC 248 ug/dL (250-450) L 01/23/20 20:00 % Saturation 6 % 01/23/20 20:00 Transferrin 175.45 mg/dL (206.00-381.00) L 01/23/20 20:00 Ferritin 331.00 ng/mL (17.9-464.0) 01/23/20 20:00 Total Bilirubin 0.3 mg/dL (0.2-1.3) 01/23/20 17:46 Direct Bilirubin 0.0 mg/dL (0.0-0.4) 01/23/20 17:46 Neonat Total Bilirubin Not Reportable 01/23/20 17:46 Neonat Direct Bilirubin Not Reportable 01/23/20 17:46 Neonat Indirect Bili Not Reportable 01/23/20 17:46 AST 20 U/L (17-59) 01/23/20 17:46 ALT 15 U/L (<50) 01/23/20 17:46 Alkaline Phosphatase 109 U/L (38-126) 01/23/20 17:46 Lactate Dehydrogenase 257 U/L (120-246) H 01/23/20 20:00 Creatine Kinase 59 U/L (55-170) 01/24/20 08:10 CK-MB (CK-2) 1.44 ng/mL (<4.55) 01/24/20 08:10 Troponin I 0.023 ng/mL 01/26/20 12:58 C-Reactive Protein 155.6 mg/L (<10.0) H 01/23/20 20:00 NT-Pro-B Natriuret Pep 65393 pg/mL (<125) H 01/23/20 20:00 Total Protein 7.5 g/dL (6.3-8.2) 01/23/20 17:46 Albumin 2.9 g/dL (3.5-5.0) L 01/23/20 17:46 Vitamin B12 450.0 pg/mL (239-931) 01/23/20 20:00 Folate 7.32 ng/mL (>2.76) 01/23/20 20:00 Urine Color NEHEMIAS 01/23/20 23:41 Urine Appearance TURBID 01/23/20 23:41 Urine pH 5.0 (5.0-9.0) 01/23/20 23:41 Ur Specific [place] 1.024 01/23/20 23:41 Urine Protein >=500 mg/dL (NEGATIVE) H 01/23/20 23:41 Urine Glucose (UA) 50 mg/dL (NEGATIVE) H 01/23/20 23:41 Urine Ketones NEGATIVE mg/dL (NEGATIVE) 01/23/20 23:41 Urine Blood MODERATE (NEGATIVE) H 01/23/20 23:41 Urine Nitrite NEGATIVE (NEGATIVE) 01/23/20 23:41 Urine Bilirubin NEGATIVE (NEGATIVE) 01/23/20 23:41 Urine Urobilinogen NEGATIVE mg/dL (<2.0) 01/23/20 23:41 Ur Leukocyte Esterase MODERATE (NEGATIVE) H 01/23/20 23:41 Urine WBC (Auto) >182 /HPF 01/23/20 23:41 Urine RBC (Auto) 55 /HPF 01/23/20 23:41 U Hyaline Cast (Auto) 36 /LPF 01/23/20 23:41 Urine WBC Clumps MANY /HPF 01/23/20 23:41 Squamous Epi Cells Auto 12 /HPF 01/23/20 23:41 Urine Mucus (Auto) MOD /LPF 01/23/20 23:41 Urine Ascorbic Acid NEGATIVE (NEGATIVE) 01/23/20 23:41 COVID-19 Source NASOPHARYNGEAL 01/23/20 20:10 COVID-19 (MELANIA) NOT DETECTED 01/23/20 20:10 Influenza A (Rapid) NEGATIVE (NEGATIVE) 01/23/20 22:25 Influenza B (Rapid) NEGATIVE (NEGATIVE) 01/23/20 22:25 SARS-CoV-2 (PCR) NEGATIVE (NEGATIVE) 01/23/20 19:18 Group A Strep Rapid NEGATIVE (NEGATIVE) 01/23/20 22:25 Slides for Path Review PATHOLOGIST REVIEWED 01/23/20 17:46 Blood Type A POSITIVE 01/23/20 17:46 Antibody Screen NEGATIVE 01/23/20 17:46 Crossmatch See Detail 01/23/20 17:46 01/23/20 01/23/20 01/24/20 17:46 20:00 02:30 CK-MB (CK-2) 1.44 1.60 Troponin I 0.124 0.137 0.151 NT-Pro-B Natriuret Pep 72221 H 01/24/20 01/26/20 08:10 12:58 CK-MB (CK-2) 1.44 Troponin I 0.124 0.023 NT-Pro-B Natriuret Pep Impressions: Chest X-Ray 01/23/20 17:57 IMPRESSION: 1. Cardiomegaly and mild pulmonary vascular congestion. Small bilateral pleural effusions and interstitial edema changes in at the lung bases. 2. Right perihilar--right upper lung zone opacity, may be on the basis of pneumonia. Correlation with history suggested and short-term follow-up examination to exclude any other underlying pathology. Shoulder X-Ray 01/24/20 00:00 IMPRESSION: No evidence of acute bony injury to the shoulder. Chest X-Ray 01/26/20 00:00 IMPRESSION: BILATERAL LOWER LOBE INFILTRATES CONCERNING FOR PNEUMONIA. SMALL PLEURAL EFFUSIONS. Lung Scan-VQ NM 01/26/20 00:00 IMPRESSION: SCATTERED SUBSEGMENTAL DEFECTS IN BOTH RIGHT AND LEFT LOWER LOBES. THERE ARE CORRESPONDING FINDINGS ON THE CHEST X-RAY. MAY BE DUE TO UNDERLYING AIRSPACE DISEASE. LOW PROBABILITY FOR PULMONARY EMBOLISM. Abdomen Ultrasound 01/28/20 00:00 IMPRESSION: NO EVIDENCE FOR ASCITES. BILATERAL PLEURAL EFFUSIONS. Abdomen/Pelvis CT 01/28/20 00:00 IMPRESSION: 1. Diffuse urinary bladder wall thickening which can be seen with acute or chronic cystitis or neurogenic bladder. Clinical correlation is recommended. 2. Moderate bilateral pleural effusions with compressive atelectasis/consolidation at the lung bases. Renal Ultrasound 01/28/20 00:00 IMPRESSION: Diffusely thickened urinary bladder wall which can be seen with acute or chronic cystitis or neurogenic bladder. Clinical correlation is recommended. Plan Time Spent: Greater than 30 Minutes Stroke Is this a Stroke Patient?: No Acute Heart Failure - Is this a Heart Failure Patient?: No
== END 2020-01-31 13:15 | disposition home or self-care (01) | DRG 193 ==
LOC: ER 17:42 → EH 19:42 → ICU 01-24 01:30 → 4N 01-25 16:16
PROVIDERS: ADMIT Internal Medicine; ATTEND Family Medicine
PROC: 30233N1 Transfusion of Nonautologous Red Blood Cells into Peripheral Vein, Percutaneous Approach (ICD-10-PCS; principal; 2020-01-25)
DX: J14 Pneumonia due to Hemophilus influenzae (principal); N17.0 Acute kidney failure with tubular necrosis; E87.5 Hyperkalemia; M14.672 Charcot's joint, left ankle and foot; I10 Essential (primary) hypertension; K21.9 Gastro-esophageal reflux disease without esophagitis; Z20.828 Contact with and (suspected) exposure to other viral communicable diseases; R79.89 Other specified abnormal findings of blood chemistry; D50.9 Iron deficiency anemia, unspecified; E11.51 Type 2 diabetes mellitus with diabetic peripheral angiopathy without gangrene; M25.512 Pain in left shoulder; F10.20 Alcohol dependence, uncomplicated; E78.5 Hyperlipidemia, unspecified; K59.00 Constipation, unspecified; Z79.4 Long term (current) use of insulin; Z91.81 History of falling; I27.20 Pulmonary hypertension, unspecified; Z87.891 Personal history of nicotine dependence; Z82.49 Family history of ischemic heart disease and other diseases of the circulatory system; Z83.3 Family history of diabetes mellitus; Z89.511 Acquired absence of right leg below knee; Z89.412 Acquired absence of left great toe
CPT/HCPCS: 36415; 36430; 71045; 74176; 76705; 76770; 78580; 80048; 80053; 81001; 82550; 82553; 82607; 82728; 82746; 82803; 82962; 83540; 83550; 83605; 83615; 83880; 84466; 84484; 85025; 85027; 85045; 85379; 85610; 85730; 86140; 86850; 86900; 86901; 86920; 87040; 87070; 87077; 87205; 87635; 87804; 87880; 93005; 93010; 93306; 94640; 94667; 94668; 94799; 96365; 96368; 99291; A9540; J0360; J0456; J0610; J0696; J1644; J1756; J1815; J2405; J2543; J3490; J7030; J7050; J7512; J7620; P9016; Q9969